=== PATIENT | female | born 2000 | race Caucasian/White ===

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

== ENCOUNTER 2020-02-06 08:32 | Day surgery (SDC) | payer OTHER, SELFPAY ==
[2020-01-26 08:37] VITALS: BMI 25.4
[2020-02-06 08:58] VITALS: BP 124/72; PULSE 83; RESP 16; TEMP 36.9; O2SAT 99; BMI 26.7
[2020-02-06 09:03] LABS: Internal QC Validated? YES +Cl - CLEAR BKGD; Pregnancy, Urine Negative Negative
[2020-02-06] MEDS: Lactated Ringers 1,000 ML 100 ML IV ×2 (09:13→13:34)
--- NOTE | 2020-02-06 10:06 | PCM.HP.BLA ---
History and Physical Date of Admission: 02/06/20 Date of Service: 01/26/20 MR#: [id number] Acct: [id number] Name: MAINOR MARTINI Rep #: [id number] : 2000 Provider: Dr. 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 Required: No Is patient in pain?: No Allergies No Known Allergies Allergy (Verified 01/26/20 08:37) Medications drospirenone 3 mg-ethinyl estradiol 0.02 mg tablet 1 tab PO QDAY #84 tab 11/20/19 [Rx Confirmed 01/26/20] isotretinoin 20 mg capsule PO 01/26/20 [History Confirmed 01/26/20] Is last menstrual period known: No Post menopausal: No Patient : No PFSH Medical History (Updated 01/26/20 @ 08:36 by Esme Wu) Acne (Acute) Breast lump (Acute) Surgical History History of appendectomy (Acute) History of right knee surgery (Acute) History of tonsillectomy and adenoidectomy (Acute) history closed reduction right arm fracture (Acute) Social History (Updated 01/26/20 @ 11:[address] Narcisa Lang MD) Smoking Status: Never smoker alcohol intake: never substance use type: does not use caffeine: Yes what type of physical activity do you participate in: walking seatbelt use: always do you feel safe at home: Yes additional social history: single HPI HPI HPI: MAINOR MARTINI, is a 19 F who presents to the office today for HPI HPI HPI: MAINOR MARTINI, is a 19 F who presents to the office today for discussion of lumpectomies on right breast. Patient previously had biopsies of 2 right breast nodules one was fibroadenoma at 11:00 and the other was fibroadenoma/benign phyllodes. Did previously discuss patient would recommend definitely excision of the benign phyllodes tumor at 8:00 and patient states that the 11:00 1 was also tender and wanted it to be excised as well. Patient states since last office visit she has not really noticed change in size. States that the 7:00 one is insulation power unit tender with palpation. Patient rates the tenderness about a 6/10. ROS General General: Yes fatigue; no weight change, colon cancer, breast cancer or weakness HEENT HEENT: No difficulty swallowing, eye injury, eye surgery, swollen glands or hoarseness Endo Endocrine: No thyroid disease, diabetes mellitus, thyroid cancer, Hair loss, heat intolerance or cold intolerance Cardio Cardiovascular: Yes murmur; no pacemaker, heart disease, atrial fibrillation, high blood pressure, heart attack, heart stent, palpitations, shortness of breat with exertion or chest pain Psych Psychiatric: No depression, anxiety or hearing voices Resp Respiratory: No shortness of breath, No sleep apnea, No cough, No COPD, No asthma, No emphysema, No wheezing Esdras Hematologic: No blood thinners, No blood disorders, No bleeding, No anemia, No blood clots Neuro Neurologic: No weakness Exam Const General: cooperative, comfortable, no acute distress, well developed Chest Breast inspection: normal inspection of the breasts, abnormal inspection of the axilla Other: 3 cm nodule appreciated 11:00 2 cm from the nipple as well as a 1.5 cm nodule at 8:00 2 cm from the nipple mild tenderness palpation of the 11:00 fibroadenoma, mobile, no changes to overlying skin, no nipple discharge or supraclavicular adenopathy. Resp Effort & Inspection: normal respiratory effort Cardio Rate: regular rate Heart Sounds: murmur Assessment & Plan Problems 1. 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 Discussed the procedure along with risks including but not limited to bleeding, infection, need for further surgery, seroma/hematoma. We will plan to make that incision at the areolar border. The patient was agreeable plan and agreed to proceed. Narcisa Lang M.D. Pager: [phone] [facility] [address] [place] [address], [address] [place] [id number] Office: 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 delaying the surgery/procedure. It is not possible to know either the risk of delaying the surgery or procedure or chance of getting an infection with perfect accuracy, but a joint decision was made between the patient and the surgeon/proceduralist ?to proceed at this time with the scheduled surgery/procedure as indicated on the consent form. 01/26/20 1126 <Electronically signed by Narcisa Lang MD> Date Narcisa Lang MD
[2020-02-06] MEDS: Cefazolin 2 GM in 0.9% Normal Saline 100 ML IV (10:45)
--- NOTE | 2020-02-06 11:50 | BRBX_PTH ---
PATIENT: MAINOR MARTINI LOC: [facility] U#:[id number] AGE/SX: 19/F ROOM: RE02/06/[address]: Dr. Narcisa Lang MD : 2000 BED: DIS: 02/06/2020 SPEC #: [id number] RECD: 02/06/20 12:00 STATUS: [place] MICHELINE #: [id number] MISTI: 02/06/20 11:[address]: Narcisa Lang DEPT: SURGICAL PATHOLOGY RECD BY: Ilana Garcia ENTERED: 02/06/20 12:16 SP TYPE: BREAST BX OTHR DR: Dr. Jayme Garcia DO Tissues: A - Right breast, NOS B - Right breast, NOS Procedures: Surgery Specimen Level V HEADER OPERATION: Ultrasound-guided wire localization, lumpectomy x2 PRE-OP DIAGNOSIS: Benign phyllodes tumor right breast, fibroadenoma right breast TISSUE SUBMITTED: A - Right breast fibroadenoma, B - Right breast benign phyllodes tumor MICROSCOPIC DIAGNOSIS A. Right breast fibroadenoma, lumpectomy with needle localization: Fibroadenoma/phyllodes tumor, completely excised. Negative for atypia or malignancy. B. Benign phyllodes tumor right breast, lumpectomy: Fibroadenoma/phyllodes tumor, completely excised. Negative for atypia or malignancy. SJ:consuelo 02/10/20 COMMENT Please make reference to previous specimen ([id number]) right breast, 11 o'clock, core biopsy with diagnosis of fibroadenoma and right breast, 8 o'clock, 2 cm from nipple, core biopsy with diagnosis of fibroadenoma/benign phyllodes tumor. MICROSCOPIC DESCRIPTION Slides are reviewed. GROSS DESCRIPTION A - Received fresh and postfixed in formalin is one container labeled with the patient's name and designated right breast benign phyllodes tumor, short suture - superior, long suture - lateral. The specimen consists of a piece of nodular tissue with wire localization measuring 3 x 2.5 x 2 cm. The specimen is inked as follows: anterior - yellow, posterior - black, superior - blue, inferior - green, medial - red and lateral - orange. Sections reveal santana, solid cut surfaces. The entire specimen is submitted in six cassettes from superior to inferior margin. Cassette 1 contains the most superior portion, cassette 6 contains the most inferior portion. B - Received in fixative is one container labeled with the patient's name and designated benign phyllodes tumor right breast. The specimen consists of a nodular piece of santana soft tissue measuring 2.5 x 2 x 1.5 cm. The specimen is oriented by a suture, short suture - superior, long - lateral. The specimen is inked as follows: anterior - yellow, posterior - black, superior - blue, inferior - green, medial - red and lateral - orange. Sections reveal santana, solid cut surfaces. The entire specimen is submitted in four cassettes. Cassette 1 contains the most medial portion and cassette 4 contains the most lateral portion. / SJ:rg 02/09/20 TC:1 CPT: 45433 x2
--- NOTE | 2020-02-06 11:54 | BI_ITS ---
SURGICAL BREAST SPECIMEN RADIOGRAPH CLINICAL: Document presence of tissue clip marker in biopsy specimen. FINDINGS: Specimen shows presence of tissue clip marker. Electronically Signed: Judd Smith, at 13:35 EST , Service support , BI/Breast Biopsy Specimen
--- NOTE | 2020-02-06 12:49 | BI_ITS ---
SURGICAL BREAST SPECIMEN RADIOGRAPH CLINICAL: Document presence of tissue clip marker in biopsy specimen. FINDINGS: Specimen shows presence of tissue clip marker. Electronically Signed: Judd Smith, at 13:35 EST , Service support , BI/Breast Biopsy Specimen
--- NOTE | 2020-02-06 12:52 | PCM.OPRPT ---
Report of Operation Date of Procedure: 02/06/20 Pre-Operative Diagnosis: Right breast fibroadenoma and benign phyllodes Post-Operative Diagnosis: Same Surgery/Procedure Performed:: Excision of right breast fibroadenoma and benign phyllodes masses x2. Type of Anesthesia:: General Anesthesiologist: Eben Oneill Special Medications: Ancef 2 g IV x1 Specimen's removed: 11:00 right breast mass fibroadenoma, 8:00 right breast mass benign phyllodes Estimated Blood Loss (mL): 10 Fluids Replaced: 1400 Description of Procedure: Patient brought into the operating room after informed consent obtained. Placed supine on the operating table. Right arm was tucked and appropriately padded. General anesthesia was induced. The right breast was prepped and draped in usual sterile fashion. Ultrasound was used to identify the 2 lesions one at 11:00 3 cm from nipple and one at 8:00 2 cm from the nipple. Kopan wires were used to helena the areas. An incision along the areolar border was used with a 15 blade scalpel. This was deepened to locate the wire at the 11:00 lesion. 3-0 silk suture was used to secure the wire and apply traction to the mass. It was circumferentially dissected from the surrounding tissue. The anterior is marked with a short suture in the lateral was marked with a long suture and sent to pathology after radiology confirmed entire wire and clip present. Next moved to the 8:00 lesion due to the firmness of the mass that Kopan's needle was unable to penetrate it. Again this was localized and 3-0 silk suture was used for traction. Electrocautery was used to circumferentially excise this mass. Hemostasis was assured. Wound was irrigated with saline the 8:00 lesion was also marked long stitch lateral short stitch superior. It was sent for x-ray the clip was confirmed. Then it was sent to pathology. Cavity was irrigated with sterile water. Hemostasis was assured. 3-0 Vicryl interrupted sutures were used to close the space x2. The skin was sutured with interrupted subdermal 3-0 Vicryl sutures and a running 4-0 Monocryl with Dermabond. Patient tolerated procedure well was sent to PACU in stable condition. - Complications none
[2020-02-06] MEDS: Bupiv/Epi 0.25% 30 ML Vial (12:53)
--- NOTE | 2020-02-06 13:18 | DCINST_ITS ---
Discharge Diet: Light diet - advance as tolerated Discharge Activity: May not drive while taking narcotic pain medications. May shower in (days): 1 Lifting Restrictions: No lifting greater than 10 pounds x 4 days on the right Call your doctor if your incision/area has: Continuous Slow Oozing, Sudden Increased Bleeding, Increased Pain/ Swelling, Increased Redness, Foul Smelling Discharge, Swelling at the incision site Call your doctor if you observe: Fever of 101 or Higher Allergies/Adverse Reactions: Allergies No Known Allergies Allergy (Verified 02/06/20 08:56) Medications to take at Discharge drospirenone 3 mg-ethinyl estradiol 0.02 mg tablet 1 tab PO QDAY #84 tab 11/20/19 isotretinoin 20 mg capsule 20 mg PO DAILY 01/26/20 Oxycodone HCl/Acetaminophen [Percocet 5/325] 1 - 2 tab PO Q6H PRN PRN 4 Days #15 tab 02/06/20 The following prescriptions were given: Oxycodone HCl/Acetaminophen [Percocet 5/325] 1 - 2 tab PO Q6H PRN PRN 4 Days #15 tab PRN Reason: Pain Transmission Status: Received by [facility] Primary Care Physician: Jayme Garcia DO [Primary Care Provider] - Test Results: Test results from this visit will be discussed in further detail at your follow- up appointment, if applicable. Please Follow Up With: Narcisa Lang MD - After 5:00 on the weekends call [phone] When: Call the office for follow-up appointment in 2 weeks Proposed Discharge Date: 02/06/20
[2020-02-06 13:28] VITALS: BP 124/72; BP 140/79; PULSE 139; RESP 18; TEMP 36.9; O2SAT 96
[2020-02-06 13:30] VITALS: BP 124/72; BP 128/83; PULSE 128; RESP 18; O2SAT 96
[2020-02-06 13:45] VITALS: BP 124/72; BP 139/59; PULSE 124; RESP 18; O2SAT 95
[2020-02-06 13:59] VITALS: BP 124/72; BP 134/70; PULSE 118; RESP 18; TEMP 36.4; O2SAT 95
[2020-02-06 14:35] VITALS: BP 124/72
== END 2020-02-06 14:35 | disposition home or self-care (01) ==
LOC: SDC 08:34 → AC 08:34
PROVIDERS: Anesthesiology; PCP Pediatrics; Referring Provider Surgery; Visit Provider Surgery
PROC: (CPT 19301; principal; 2020-02-06 09:45)
DX: D24.1 Benign neoplasm of right breast (principal); Z20.828 Contact with and (suspected) exposure to other viral communicable diseases
CPT/HCPCS: 00400; 19120; 76098; 81025; 87426; 88305; 88307; C9803; J7120; J2405

== ENCOUNTER → 2020-02-20 15:56 | Outpatient (CLI) | payer OTHER, SELFPAY ==
[2020-02-06 08:58] VITALS: BMI 26.7
[2020-02-20 17:58] LABS: Internal QC Validated? YES +Cl - CLEAR BKGD; Pregnancy, Urine Negative Negative
== END ==
PROVIDERS: PCP Pediatrics; Referring Provider Physician Assistant Medical; Visit Provider Physician Assistant Medical
DX: L70.0 Acne vulgaris (principal); Z79.899 Other long term (current) drug therapy
CPT/HCPCS: 81025

== ENCOUNTER → 2020-04-13 09:02 | Outpatient (CLI) | payer OTHER, SELFPAY ==
[2020-04-13 10:06] LABS: Internal QC Validated? YES +Cl - CLEAR BKGD; Pregnancy, Urine Negative Negative
[2020-04-13 10:46] LABS: AST(SGOT) 14 U/L (15-37); Alanine Aminotransfer ALT/SGPT 20 U/L (13-56); Albumin, Serum 3.5 g/dL (3.2-5.0); Alkaline Phosphatase 71 U/L (45-117); Bilirubin, Direct 0.11 mg/dL (0.00-0.30); Cholesterol 219 mg/dL (200); Globulin 3.8 g/dL (2.2-4.2); High Density Lipoprotein 83 mg/dL; Protein, Total 7.3 g/dL (6.4-8.2); Triglycerides 162 mg/dL; Very Low Density Lipoprotein 32 mg/dL (5-40)
== END ==
LOC: LAB 09:05
PROVIDERS: PCP Pediatrics; Referring Provider Dermatology; Visit Provider Dermatology
DX: L70.0 Acne vulgaris (principal); L20.89 Other atopic dermatitis; Z79.899 Other long term (current) drug therapy
CPT/HCPCS: 36415; 80061; 80076; 81025

== ENCOUNTER → 2020-06-22 15:33 | Outpatient (CLI) | payer OTHER, SELFPAY ==
[2020-06-22 15:10] VITALS: BMI 28.3
[2020-06-22 16:44] LABS: Absolute Neutrophil Count 5.9 X10^3/uL (2.0-7.7); Basophil# 0.04 X10^3/uL; Basophil% 0.5 % (0-1); Eosinophil# 0.11 X10^3/uL; Eosinophils% 1.3 % (0-5); Hematocrit 46.6 % (37-47); Hemoglobin 15.3 g/dL (12.0-15.0); Lymphocyte % 22.6 % (19-41); Mean Corp Hgb Conc 32.8 g/dL (32-36); Mean Corpuscular Hgb 27.4 pg (27.0-32.0); Mean Corpuscular Volume 83.4 fL (81-99); Mean Platelet Vol. 9.9 fl (6.2-12.0); Monocyte# 0.41 X10^3/uL; Monocyte% 4.9 % (0-10); NRBC Flagged by Analyzer 0 % (0-5); Neutrophil # 5.92 X10^3/uL (2.7-7.7); Neutrophil % 70.5 % (47-70); Platelet Count 321 K/mm3 (150-450); RBC Distribution Width CV 12.2 % (11.6-14.6); RBC Distribution Width SD 37.2 fl (35.1-43.9); Red Blood Count 5.59 M/mm3 (4.2-5.4); White Blood Count 8.4 K/mm3 (4.4-11.0)
[2020-06-22 17:30] LABS: Thyroid Stim Hormone (TSH) 0.61 uIU/mL (0.358-3.74)
[2020-06-22 18:24] LABS: Chlamydia Trachomatis by PCR POSITIVE (Negative); Neisserai gonorrhoeae by PCR Negative (Negative); Probe Check PASS; Sample Adequacy Control PASS; Specimen Processing Control PASS
== END ==
PROVIDERS: Nurse Practitioner Women's Health; PCP Pediatrics; Visit Provider Obstetrics & Gynecology
DX: N92.1 Excessive and frequent menstruation with irregular cycle (principal); Z11.3 Encounter for screening for infections with a predominantly sexual mode of transmission; Z13.29 Encounter for screening for other suspected endocrine disorder
CPT/HCPCS: 36415; 84443; 85025; 85245; 87491; 87591

== ENCOUNTER → 2020-06-23 11:52 | Outpatient (CLI) | payer OTHER, SELFPAY ==
[2020-06-22 15:10] VITALS: BMI 28.3
[2020-06-23 13:13] LABS: HIV - WCH Non-Reactive (Nonreactive); Hepatitis B Surface Antigen Non-Reactive (Nonreactive); Hepatitis C Antibody Non-Reactive (Nonreactive)
[2020-06-24 14:19] LABS: HSV 1 IgG < 0.91 index (0.00-0.90); HSV 2 IgG < 0.91 index (0.00-0.90)
[2020-06-25 09:08] LABS: Syphilis Antibodies Non-reactive
== END ==
LOC: PAVLAB 11:54
PROVIDERS: PCP Pediatrics; Referring Provider Nurse Practitioner Women's Health; Visit Provider Nurse Practitioner Women's Health
DX: Z11.3 Encounter for screening for infections with a predominantly sexual mode of transmission (principal)
CPT/HCPCS: 36415; 86695; 86696; 86703; 86780; 86803; 87340

== ENCOUNTER → 2020-10-15 16:23 | Outpatient (CLI) | payer OTHER, SELFPAY ==
[2020-10-15 15:27] VITALS: BMI 28.3
[2020-10-15 18:12] LABS: Estradiol 42.9 pg/mL; Prolactin 9.2 ng/mL; Thyroid Stim Hormone (TSH) 0.78 uIU/mL (0.358-3.74)
[2020-10-19 06:07] LABS: Chlamydia By Nucleic Acid AMP Negative (Negative)
[2020-10-19 08:21] LABS: 17-Hydroxyprogesterone 86 ng/dL (.)
[2020-10-19 08:21] LABS: Gonococcus By Nucleic Acid AMP Negative (Negative)
[2020-10-22 11:11] LABS: Testosterone Free 2.1 pg/mL (0.0-4.2)
== END ==
PROVIDERS: PCP Pediatrics; Referring Provider Obstetrics & Gynecology; Visit Provider Obstetrics & Gynecology
DX: N89.8 Other specified noninflammatory disorders of vagina (principal); N92.1 Excessive and frequent menstruation with irregular cycle; Z11.3 Encounter for screening for infections with a predominantly sexual mode of transmission
CPT/HCPCS: 36415; 82627; 82670; 83001; 83498; 84146; 84402; 84443; 87070; 87205; 87491; 87591; 82626

== ENCOUNTER → 2020-11-05 13:52 | Outpatient (CLI) | payer OTHER, SELFPAY ==
[2020-10-15 15:27] VITALS: BMI 28.3
--- NOTE | 2020-11-05 13:55 | US_ITS ---
STUDY: ULTRASOUND OF THE FEMALE PELVIS - COMPLETE REASON FOR EXAM: Female, 20 years old. Menorrhagia w/irregular cycles LMP: 07/01/2020 TECHNIQUE: endovaginal TECHNICAL QUALITY: Adequate. COMPARISON: None. FINDINGS: The uterus is anteverted and is in a midline position. The uterus measures 8.3 x 4.9 x 3.0 cm. Nabothian cysts at the uterine cervix. The endometrium measures 11.4 mm in thickness, and is hyperechoic. There is no demonstrated endometrial mass. There is no demonstrated myometrial mass. The patient does not have an I.U.D. The right ovary is visualized. The right ovary measures 3.2 x 3.2 x 2.9 cm. There is no right ovarian cyst or ovarian mass. There is no visualized right adnexal mass or complex lesion. There is normal arterial and normal venous vascularity. The left ovary is visualized. The left ovary measures 3.0 x 3.5 x 2.5 cm. There is no left ovarian cyst or ovarian mass. There is no visualized left adnexal mass or complex lesion. There is normal arterial and normal venous vascularity. There is no fluid in the cul-de-sac. US/Transvaginal Non- IMPRESSION: Nabothian cysts. Slightly thickened endometrium. Electronically Signed: Sukhi Gruber DO at 16:59 EDT Tel [phone], Service support ,
--- NOTE | 2020-11-05 13:55 | US_ITS ---
STUDY: ULTRASOUND OF THE FEMALE PELVIS - COMPLETE REASON FOR EXAM: Female, 20 years old. Menorrhagia w/irregular cycles LMP: 07/01/2020 TECHNIQUE: endovaginal TECHNICAL QUALITY: Adequate. COMPARISON: None. FINDINGS: The uterus is anteverted and is in a midline position. The uterus measures 8.3 x 4.9 x 3.0 cm. Nabothian cysts at the uterine cervix. The endometrium measures 11.4 mm in thickness, and is hyperechoic. There is no demonstrated endometrial mass. There is no demonstrated myometrial mass. The patient does not have an I.U.D. The right ovary is visualized. The right ovary measures 3.2 x 3.2 x 2.9 cm. There is no right ovarian cyst or ovarian mass. There is no visualized right adnexal mass or complex lesion. There is normal arterial and normal venous vascularity. The left ovary is visualized. The left ovary measures 3.0 x 3.5 x 2.5 cm. There is no left ovarian cyst or ovarian mass. There is no visualized left adnexal mass or complex lesion. There is normal arterial and normal venous vascularity. There is no fluid in the cul-de-sac. US/Pelvic (Non ) IMPRESSION: Nabothian cysts. Slightly thickened endometrium. Electronically Signed: Sukhi Gruber DO at 16:59 EDT Tel [phone], Service support ,
== END ==
PROVIDERS: PCP Pediatrics; Referring Provider Obstetrics & Gynecology; Visit Provider Obstetrics & Gynecology
DX: N92.1 Excessive and frequent menstruation with irregular cycle (principal)
CPT/HCPCS: 76830; 76856

== ENCOUNTER → 2020-11-26 16:52 | Outpatient (CLI) | payer OTHER, SELFPAY ==
[2020-11-26 18:58] LABS: Chlamydia Trachomatis by PCR Negative (Negative); Neisserai gonorrhoeae by PCR Negative (Negative); Probe Check PASS; Sample Adequacy Control PASS; Specimen Processing Control PASS
== END ==
PROVIDERS: PCP Pediatrics; Visit Provider Obstetrics & Gynecology
DX: Z11.3 Encounter for screening for infections with a predominantly sexual mode of transmission (principal)
CPT/HCPCS: 87491; 87591

== ENCOUNTER → 2021-01-05 10:09 | Outpatient (CLI) | payer OTHER, SELFPAY ==
[2021-01-05 11:36] LABS: HIV - WCH Non-Reactive (Nonreactive); Syphilis Antibodies Non-reactive
[2021-01-06 09:19] LABS: HSV 1 IgG < 0.91 index (0.00-0.90); HSV 2 IgG < 0.91 index (0.00-0.90)
[2021-01-06 22:07] LABS: Chlamydia By Nucleic Acid AMP Positive (Negative)
[2021-01-06 22:33] LABS: Gonococcus By Nucleic Acid AMP Negative (Negative)
== END ==
PROVIDERS: PCP Pediatrics; Referring Provider Nurse Practitioner Women's Health; Visit Provider Nurse Practitioner Women's Health
DX: Z11.3 Encounter for screening for infections with a predominantly sexual mode of transmission (principal); Z20.2 Contact with and (suspected) exposure to infections with a predominantly sexual mode of transmission
CPT/HCPCS: 36415; 86695; 86696; 86703; 86780; 87491; 87591

== ENCOUNTER 2021-04-12 09:18 | Outpatient (CLI) | payer OTHER, SELFPAY ==
[2021-04-12 09:37] LABS: Absolute Lymphocyte Count 1.88 X10^3/uL (0.83-4.51); Absolute Neutrophil Count 5.5 X10^3/uL (2.0-7.7); Basophil# 0.04 X10^3/uL; Basophil% 0.5 % (0-1); Eosinophil# 0.16 X10^3/uL; Hemoglobin 15.1 g/dL (12.0-15.0); Lymphocyte # 1.88 X10^3/ul (0.83-4.51); Lymphocyte % 23.2 % (19-41); Mean Corp Hgb Conc 32.8 g/dL (32-36); Mean Corpuscular Hgb 27.2 pg (27.0-32.0); Mean Corpuscular Volume 82.9 fL (81-99); Mean Platelet Vol. 9.3 fl (6.2-12.0); Monocyte# 0.46 X10^3/uL; Monocyte% 5.7 % (0-10); NRBC Flagged by Analyzer 0 % (0-5); Neutrophil # 5.53 X10^3/uL (2.7-7.7); Neutrophil % 68.4 % (47-70); Platelet Count 317 K/mm3 (150-450); RBC Distribution Width CV 12.1 % (11.6-14.6); RBC Distribution Width SD 36.8 fl (35.1-43.9); Red Blood Count 5.55 M/mm3 (4.2-5.4); White Blood Count 8.1 K/mm3 (4.4-11.0)
[2021-04-13 22:06] LABS: Chlamydia By Nucleic Acid AMP Negative (Negative)
[2021-04-14 08:23] LABS: Gonococcus By Nucleic Acid AMP Negative (Negative)
== END 2021-04-12 23:59 | disposition short-term general hospital (02) ==
LOC: PAVLAB 09:19
PROVIDERS: PCP Pediatrics; Referring Provider Obstetrics & Gynecology; Visit Provider Obstetrics & Gynecology
DX: R10.2 Pelvic and perineal pain (principal)
CPT/HCPCS: 36415; 85025; 87086; 87491; 87591

== ENCOUNTER 2021-04-29 08:38 | Outpatient (CLI) | payer OTHER, SELFPAY ==
--- NOTE | 2021-04-29 08:45 | CT_ITS ---
STUDY: CT ABDOMEN AND PELVIS WITH CONTRAST REASON FOR EXAM: Female, 20 years old. 2 week history of lower pelvic pain. RADIATION DOSAGE (If Supplied By Facility): CTDIvol = ( 17.24 ) mGy, DLP = ( 1174.61 ) mGycm TECHNIQUE: Transaxial images were obtained from the dome of the diaphragm to the symphysis pubis without oral contrast. IV 100mL Isovue-370 was administered. Sagittal and coronal images were reconstructed. Individualized dose optimization techniques were used for this CT. COMPARISON: Comparison is made with prior study dated 11/06/2012. FINDINGS: The visualized lung bases are unremarkable. The visualized portions of the heart are within normal limits. Normal liver. Normal gallbladder and extrahepatic biliary system. Normal spleen. Normal pancreas. Normal bilateral adrenal glands. Normal right kidney. Normal left kidney. Normal visualized stomach. Normal small intestine. Normal colon. There are surgical clips in the region of the appendix consistent with a prior appendectomy. Normal abdominal aorta. Normal inferior vena cava. Normal retroperitoneum. Normal urinary bladder. Small follicles are seen in both ovaries. Normal abdominal wall. Normal osseous structures. CT/Abdomen/Pelvis W IV Cont ONLY IMPRESSION: Status post appendectomy. Small follicles are seen in both ovaries. Electronically Signed: Judd Smith MD at 9:33 EST ,
[2021-04-29 09:40] LABS: Absolute Lymphocyte Count 1.79 X10^3/uL (0.83-4.51); Basophil# 0.03 X10^3/uL; Basophil% 0.3 % (0-1); Eosinophil# 0.09 X10^3/uL; Eosinophils% 0.9 % (0-5); Hematocrit 42.8 % (37-47); Lymphocyte # 1.79 X10^3/ul (0.83-4.51); Lymphocyte % 17.3 % (19-41); Mean Corp Hgb Conc 32.7 g/dL (32-36); Mean Corpuscular Hgb 26.4 pg (27.0-32.0); Mean Corpuscular Volume 80.6 fL (81-99); Mean Platelet Vol. 9.3 fl (6.2-12.0); Monocyte# 0.46 X10^3/uL; Monocyte% 4.4 % (0-10); NRBC Flagged by Analyzer 0 % (0-5); Neutrophil # 7.97 X10^3/uL (2.7-7.7); Neutrophil % 76.8 % (47-70); Platelet Count 273 K/mm3 (150-450); RBC Distribution Width CV 12.1 % (11.6-14.6); RBC Distribution Width SD 35.1 fl (35.1-43.9); Red Blood Count 5.31 M/mm3 (4.2-5.4); White Blood Count 10.4 K/mm3 (4.4-11.0)
[2021-04-29 09:55] LABS: Anion Gap 5 (5-15); BUN 8 mg/dL (7-18); BUN/Creat Ratio 11.6 RATIO (10-20); Calcium,Total 8.8 mg/dL (8.5-10.1); Chloride 106 mmol/L (98-107); Creatinine, Serum 0.69 mg/dL (0.55-1.02); EST Glomerular Filtration Rate 115 mL/min (>60); Est Glom Filt Rate - Afr Amer 139 mL/min (>60); Glucose 86 mg/dL (74-106); Potassium 4.3 mmol/L (3.5-5.1); Sodium Level 135 mmol/L (136-145)
== END 2021-04-29 23:59 | disposition short-term general hospital (02) ==
PROVIDERS: PCP Pediatrics; Referring Provider Obstetrics & Gynecology; Visit Provider Obstetrics & Gynecology
DX: R10.2 Pelvic and perineal pain (principal)
CPT/HCPCS: 36415; 74177; 80048; 85025; 87086; Q9967

== ENCOUNTER 2021-07-01 09:55 | Outpatient (CLI) | payer OTHER, SELFPAY ==
--- NOTE | 2021-07-01 09:58 | US_ITS ---
STUDY: ULTRASOUND BREAST - LEFT REASON FOR EXAM: Female, 20 years old. Palpable lump left breast. TECHNIQUE: Axial and longitudinal images of the LEFT breast were performed with a high resolution ultrasound transducer. # OF IMAGES: 58 COMPARISON: None. FINDINGS: LEFT Breast: The lateral half of the left breast was examined by ultrasound. There is dense fibroglandular tissue. No sonographic abnormality is seen. US/Breast Limited Unilateral IMPRESSION: No sonographic abnormality is seen. ASSESSMENT CATEGORY: BIRADS Category 1: Negative. A letter regarding these results will be sent to the patient by the facility within 30 days. Electronically Signed: Judd Smith MD at 10:37 EDT ,
== END 2021-07-01 23:59 | disposition home or self-care (01) ==
LOC: OPBI 09:57
PROVIDERS: PCP Pediatrics; Visit Provider Obstetrics & Gynecology
DX: N63.20 Unspecified lump in the left breast, unspecified quadrant (principal)
CPT/HCPCS: 76642

== ENCOUNTER → 2021-07-25 | Outpatient (CLI) | payer OTHER, SELFPAY ==
[2021-07-25 10:51] LABS: HIV - WCH Non-Reactive (Nonreactive); Syphilis Antibodies Non-reactive
[2021-07-26 19:51] LABS: HSV 1 IgG < 0.91 index (0.00-0.90); HSV 2 IgG < 0.91 index (0.00-0.90)
[2021-07-27 06:08] LABS: Chlamydia By Nucleic Acid AMP Negative (Negative)
[2021-07-27 10:42] LABS: Gonococcus By Nucleic Acid AMP Negative (Negative)
[2021-07-28 17:23] LABS: HPV Reflexed? NOT INDICATED
== END | disposition home or self-care (01) ==
LOC: PAVLAB 09:27
PROVIDERS: PCP Pediatrics; Referring Provider Nurse Practitioner Women's Health; Visit Provider Nurse Practitioner Women's Health
DX: Z20.2 Contact with and (suspected) exposure to infections with a predominantly sexual mode of transmission (principal); N89.8 Other specified noninflammatory disorders of vagina; Z12.4 Encounter for screening for malignant neoplasm of cervix
CPT/HCPCS: 36415; 86695; 86696; 86703; 86780; 87070; 87077; 87205; 87491; 87591; 88175; G0145

== ENCOUNTER → 2021-12-14 | Outpatient (CLI) | payer SELFPAY ==
[2021-12-14 15:09] LABS: Absolute Neutrophil Count 5.4 X10^3/uL (2.0-7.7); Basophil# 0.05 X10^3/uL; Basophil% 0.6 % (0-1); Eosinophils% 1.3 % (0-5); Hemoglobin 13.4 g/dL (12.0-15.0); Lymphocyte % 22.9 % (19-41); Mean Corp Hgb Conc 32.7 g/dL (32-36); Mean Corpuscular Hgb 26.6 pg (27.0-32.0); Mean Corpuscular Volume 81.5 fL (81-99); Mean Platelet Vol. 9.3 fl (6.2-12.0); Monocyte# 0.52 X10^3/uL; Monocyte% 6.6 % (0-10); NRBC Flagged by Analyzer 0 % (0-5); Neutrophil # 5.36 X10^3/uL (2.7-7.7); Neutrophil % 68.2 % (47-70); Platelet Count 350 K/mm3 (150-450); RBC Distribution Width CV 13.2 % (11.6-14.6); RBC Distribution Width SD 39.1 fl (35.1-43.9); Red Blood Count 5.03 M/mm3 (4.2-5.4); White Blood Count 7.9 K/mm3 (4.4-11.0)
[2021-12-14 15:29] LABS: Prolactin 12.4 ng/mL; T4 Free Direct 1.15 ng/dL (0.76-1.46); Thyroid Stim Hormone (TSH) 0.79 uIU/mL (0.358-3.74)
[2021-12-15 08:47] LABS: HIV - WCH Non-Reactive (Nonreactive); Hepatitis C Antibody Non-Reactive (Nonreactive); Syphilis Antibodies Non-reactive
[2021-12-16 11:11] LABS: HSV 1 IgG < 0.91 index (0.00-0.90); HSV 2 IgG < 0.91 index (0.00-0.90)
[2021-12-16 22:06] LABS: Chlamydia By Nucleic Acid AMP Negative (Negative)
[2021-12-17 07:17] LABS: Gonococcus By Nucleic Acid AMP Negative (Negative)
== END | disposition home or self-care (01) ==
PROVIDERS: PCP Pediatrics; Referring Provider Nurse Practitioner Women's Health; Visit Provider Nurse Practitioner Women's Health
DX: Z20.2 Contact with and (suspected) exposure to infections with a predominantly sexual mode of transmission (principal)
CPT/HCPCS: 36415; 84146; 84439; 84443; 85025; 86695; 86696; 86703; 86780; 86803; 87491; 87591

== ENCOUNTER → 2022-01-06 | Outpatient (CLI) | payer SELFPAY ==
--- NOTE | 2022-01-06 13:11 | US_ITS ---
STUDY: ULTRASOUND OF THE FEMALE PELVIS - COMPLETE REASON FOR EXAM: Female, 21 years old. aub LMP: 11/07/2021. TECHNIQUE: Transvaginal TECHNICAL QUALITY: Adequate. COMPARISON: None. FINDINGS: The uterus is anteverted and is in a midline position. The uterus measures 7.9 cm x 5.1 cm x 3.5 cm. Normal uterine cervix. The endometrium measures 3 mm in thickness, and is hyperechoic. There is no demonstrated endometrial mass. There is no demonstrated myometrial mass. I.U.D. - The patient does not have an I.U.D. The right ovary is visualized. The right ovary measures 3.4 cm x 3.2 cm x 2.1 cm. There is no right ovarian cyst or ovarian mass. There is no visualized right adnexal mass or complex lesion. There is normal arterial and normal venous vascularity. The left ovary is visualized. The left ovary measures 4.1 cm x 3 cm x 2.2 cm. There is no left ovarian cyst or ovarian mass. There is no visualized left adnexal mass or complex lesion. There is normal arterial and normal venous vascularity. There is no fluid in the cul-de-sac. The pre void volume of the bladder was 543 ml. US/Transvaginal Non- IMPRESSION: Normal female pelvis. Electronically Signed: Judd Smith MD at 15:32 EDT ,
--- NOTE | 2022-01-06 13:11 | US_ITS ---
STUDY: ULTRASOUND OF THE FEMALE PELVIS - COMPLETE REASON FOR EXAM: Female, 21 years old. aub LMP: 11/07/2021. TECHNIQUE: Transvaginal TECHNICAL QUALITY: Adequate. COMPARISON: None. FINDINGS: The uterus is anteverted and is in a midline position. The uterus measures 7.9 cm x 5.1 cm x 3.5 cm. Normal uterine cervix. The endometrium measures 3 mm in thickness, and is hyperechoic. There is no demonstrated endometrial mass. There is no demonstrated myometrial mass. I.U.D. - The patient does not have an I.U.D. The right ovary is visualized. The right ovary measures 3.4 cm x 3.2 cm x 2.1 cm. There is no right ovarian cyst or ovarian mass. There is no visualized right adnexal mass or complex lesion. There is normal arterial and normal venous vascularity. The left ovary is visualized. The left ovary measures 4.1 cm x 3 cm x 2.2 cm. There is no left ovarian cyst or ovarian mass. There is no visualized left adnexal mass or complex lesion. There is normal arterial and normal venous vascularity. There is no fluid in the cul-de-sac. The pre void volume of the bladder was 543 ml. US/Pelvic (Non ) IMPRESSION: Normal female pelvis. Electronically Signed: Judd Smith MD at 15:32 EDT ,
== END | disposition home or self-care (01) ==
PROVIDERS: PCP Pediatrics; Referring Provider Obstetrics & Gynecology; Visit Provider Obstetrics & Gynecology
DX: N92.1 Excessive and frequent menstruation with irregular cycle (principal)
CPT/HCPCS: 76830; 76856

== ENCOUNTER 2022-01-10 10:10 | Day surgery (SDC) | payer OTHER, SELFPAY ==
[2022-01-10] VITALS (10 sets, daily range): BP systolic 117–137; BP diastolic 61–86; PULSE 84–109; RESP 16–17; TEMP 36.5–37.5; O2SAT 97–100; BMI 26.7
[2022-01-10] MEDS: Lactated Ringers 1,000 ML 125 ML IV (10:45)
[2022-01-10 10:46] LABS: Internal QC Validated? YES +Cl - CLEAR BKGD; Pregnancy, Urine Negative Negative
[2022-01-10 11:23] LABS: Absolute Lymphocyte Count 1.63 X10^3/uL (0.83-4.51); Absolute Neutrophil Count 7.2 X10^3/uL (2.0-7.7); Basophil# 0.04 X10^3/uL; Basophil% 0.4 % (0-1); Eosinophil# 0.04 X10^3/uL; Eosinophils% 0.4 % (0-5); Hematocrit 38.9 % (37-47); Hemoglobin 12.2 g/dL (12.0-15.0); Lymphocyte # 1.63 X10^3/ul (0.83-4.51); Lymphocyte % 17.3 % (19-41); Mean Corp Hgb Conc 31.4 g/dL (32-36); Mean Corpuscular Hgb 25.1 pg (27.0-32.0); Mean Platelet Vol. 9.6 fl (6.2-12.0); Monocyte# 0.51 X10^3/uL; Monocyte% 5.4 % (0-10); NRBC Flagged by Analyzer 0 % (0-5); Neutrophil # 7.19 X10^3/uL (2.7-7.7); Neutrophil % 76.2 % (47-70); Platelet Count 353 K/mm3 (150-450); RBC Distribution Width CV 12.3 % (11.6-14.6); RBC Distribution Width SD 35.8 fl (35.1-43.9); Red Blood Count 4.86 M/mm3 (4.2-5.4); White Blood Count 9.4 K/mm3 (4.4-11.0)
--- NOTE | 2022-01-10 12:05 | EMB_PTH ---
PATIENT: MAINOR MARTINI [place] [facility] [id number] AGE/SX: 21/F ROOM: RE01/10/[address]: Dr. Radha Giraldo MD : [id number] BED: DIS: 01/10/2022 SPEC #: [id number] RECD: 01/10/22 14:53 STATUS: [place] REИван #: [id number] MISTI: 01/10/22 12:[address]: Radha Giraldo DEPT: SURGICAL PATHOLOGY RECD BY: Ilana Garcia ENTERED: 01/11/22 09:20 SP TYPE: ENDOM BX/C JAMES DR: Dr. Jayme Garcia DO Tissues: Endometrium, NOS Procedures: Surgery Specimen Level IV HEADER OPERATION: Hysteroscopy, Dilation and curettage, IUD insertion PRE-OP DIAGNOSIS: Menorrhagia with irregular cycle, dyspareunia TISSUE SUBMITTED: Endometrial curettings MICROSCOPIC DIAGNOSIS Endometrial curettings: Mildly disordered proliferative endometrium with glandular and stromal breakdown. Chronic endometritis. Fragments of benign endocervical mucosa. YULIA:consuelo 01/12/2022 MICROSCOPIC DESCRIPTION Slides are reviewed. GROSS DESCRIPTION Received in fixative is one container labeled with the patient's name and designated endometrial curettings. The specimen consists of multiple fragments of hemorrhagic soft tissue mixed with mucoid tissue that in aggregate measure 5 x 3 x 0.2 cm. The specimen is totally submitted in two cassettes. / Ora 01/11/2022 TC:5 CPT: 42360
[2022-01-10] MEDS: Levonorgestrel IUD (Liletta) 1 EACH INTRA-UTER (13:49)
--- NOTE | 2022-01-10 14:26 | PCM.HP.BLA ---
History and Physical Intake Vital Signs ? 04/29/2207:28 12/14/2213:19 12/30/2210:06 12/30/2210:07 Height 5 ft 5 in 5 ft 5 in 5 ft 5 in 5 ft 5 in Weight: ? ? 169 lb ? BMI ? ? 28.1 ? BP ? ? 133/86 H ? 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 Radha Giraldo MD) Acne Alcohol use Non-smoker Wears glasses Surgical History? history closed reduction right arm fracture History of appendectomy History of right knee surgery History of tonsillectomy and adenoidectomy S/P bilateral breast biopsy Social History? Smoking Status:? Never smoker alcohol intake:? never substance use type:? does not use caffeine:? Yes what type of physical activity do you participate in:? walking seatbelt use:? always do you feel safe at home:? Yes additional social history:? single HPI Encounter for routine gynecological examination Details: MAINOR MARTINI is a 21 year old who presents for fu of irregular bleeding.? Has been tried on multiple therapies including NuvaRing, Depo-Provera, and Xulane patch.? She has intermittent bleeding will stop for a few days and then start spotting again.? She is taking short course of Aygestin to control acute bleeding but then proceeds to start bleeding again afterwards.? Previous ultrasound and lab evaluation within normal limits.? she also has significant pelvic pain with bleeding and still has dyspareunia.? History ? ? ? 0 ? Elective abortions ? Hx Para ? Spontaneous abortions ? Hx # Term Pregnancies ? Ectopic pregnancies ? Hx # Pregnancies ? Multiple births ? # of living children ? ROS Const Constitutional: Reports fatigue; Denies fever(s), headache(s), increased appetite, poor appetite, weight gain or weight loss GI GI: Reports as per HPI; Denies abdominal pain, constipation, nausea or vomiting : Reports as per HPI and pelvic pain; Denies difficulty voiding, dysuria, hematuria, urinary frequency, urinary incontinence, urinary hesitancy, urinary urgency, vaginal discharge, vaginal dryness, vaginal odor, vaginal pruritus or other Exam Const General: cooperative, healthy appearing, comfortable, no acute distress and well developed Orientation: alert HENMT Head: normal to inspection and normocephalic Ears: hearing grossly normal bilaterally and external ears normal Nose: external nose normal and nares normal Face and sinus: normal facial exam Neck Neck: normal visual inspection, no lymphadenopathy and trachea midline Thyroid: thyroid normal Resp Effort & Inspection: normal respiratory effort Musc Other: gross motor intact no deficits, full bilateral strength Skin General: no rashes or lesions noted Neuro Motor: muscle tone normal throughout Coding Level of Care Code Off vis,est,level 4 Diagnoses Menorrhagia with irregular cycle? N92.1 Dyspareunia? Anxiety and depression? F41.9; F32.A Assessment and Plan Assessment and Plan (1) Menorrhagia with irregular cycle: ?Status:?Acute ?Comment: neg pcos labs.? failed nuvaring, nl US. Depo+acne.? Xulane patch failed.? plan d and c hysteroscopy laparoscopy and iud insertion.? chromotubation. plan estrace for acute bleeding now has failed aygestin with bleeding acutely needs US. (2) Dyspareunia: ?Status:?Acute ?Comment: discussed dilation and PFPT.? also deep possible endometriosis, discussed diagnostic laparoscopy and chromotubation at time of d and c for full evaluation.? US ordered. (3) Anxiety and depression: ?Status:?Acute ?Comment: counseling, celexa in past. ? ? ? Orders: Orders Pelvic (Non ) 01/06/22 N92.1 - Excessive and frequent menstruation with irregular cycle ? Transvaginal Non- 01/06/22 N92.1 - Excessive and frequent menstruation with irregular cycle ? Plan After discussing the patient's diagnosis and treatment plan options, patient wishes to proceed with surgical management.? I have discussed with the patient the risks, benefits, and alternatives of the procedure which include but are not limited to risks of anesthesia, bleeding, infection, possible damage to bowel, bladder, or surrounding vasculature which could lead to additional surgery to evaluate any complications.? Patient agrees to procedure and wishes to proceed.? ACOG/uptodate references given for additional information regarding procedure.? UPDATE- I have seen the patient and performed any clinically relevant updates to the history and physical exam. Radha Giraldo MD
--- NOTE | 2022-01-10 14:27 | OP.PCM_ITS ---
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 A weighted speculum was placed in the vagina and the anterior lip of the cervix was grasped with a single-tooth tenaculum. A paracervical block was placed with 1% lidocaine. Cervix was progressively dilated to allow passage of a 5 mm hysteroscope. The lining was fully visualized and noted to have thin atrophic lining. Uterine sounded to 9 cm. Curettage was performed and minimal tissue removed and the uterine lining was very soft but no gross abnormalities or defects palpated, sent to pathology. All instruments were removed from the vagina and excellent hemostasis was noted. Uterine manipulator placed inside the vagina and then attention was paid to the abdominal portion of the procedure. The umbilicus was grasped with towel clamps and injected with quarter percent Marcaine and 5 mm in trauma umbilical incision was made and Veress needle entered into the abdomen confirmed to be intra-abdominal with an opening pressure of -1 mmHg or pressure and the abdomen was insufflated with CO2 to gas. 5 mm port was placed under direct visualization. Right and left lower quadrant 5 mm ports were also placed without complication under direct visualization. Uterus ovaries and tubes were noted to be within normal limits and no other gross abnormalities were seen in the abdominal cavity other than the endometriosis implants noted on surgical findings. Using the monopolar scissors into the endometriosis implants were destroyed with monopolar energy for full desiccation. Kayden was applied over the areas. Chromotubation perfo rmed and bilateral tubal patency confirmed. After all port sites were removed without complication and the skin incisions were closed with 3-0 Monocryl series and windows were applied. Uterine manipulator removed. Uterus sounded to 9 cm and Liletta device deployed without complication and strings trimmed to 3 cm. Patient was awoken and taken to recovery in stable condition. Grafts/Implants Used: none Complications none Admit VTE Documentation VTE Present on Admission: No VTE Mechan Device Prophylaxis: SCD's Multi Select Codes Urinary/Genital Urinary/Genital CPT Codes: 44487 Insert IUD, 26457 Chromotubation, 38366 Hysteroscopy,EMC, Polypectomy and 36138 Laproscopic ablation endometriosis
--- NOTE | 2022-01-10 14:27 | DCINST_ITS ---
Discharge Instructions Diet Discharge Diet: No restrictions Activity Discharge Activity: Return to Normal Activity, May Drive (when pain free) and May Shower May resume sexual activity in: 1 week Weight Bearing Status: Full weight bearing Lifting Restrictions: 30 lbs for 2 weeks Dressing / Incision Call your doctor if your incision/area has: Continuous Slow Oozing, Sudden Increased Bleeding, Increased Pain/ Swelling, Increased Redness and Foul Smelling Discharge Call your doctor if you observe: Fever of 101 or Higher, Using more than 1 pad per hour, Shortness of breath, Chest pain and Uncontrolled pain Suture Line Care: Avoid Pulling/Pushing and Avoid Pinching/Bending Remove Dressing in: 1 week (if present) Cleanse incision/area with: Soap & Water and Keep Dressing Clean & Dry Follow Up Care Please Follow Up With: Radha Giraldo MD When: Call to make an appointment with your doctor for a postop visit in 2 weeks Test Results: Test results from this visit will be discussed in further detail at your follow- up appointment, if applicable. Discharge Plan Admission Attending Provider: Radha Giraldo Primary Care Provider: Jayme Garcia Discharge Orders/Prescriptions Prescriptions: New oxycodone-acetaminophen [Endocet] 5-325 mg tablet 1 tab PO Q4H PRN (Reason: pain) 7 Days Qty: 20 0RF ibuprofen [ibuprofen] 600 mg tablet 600 mg PO Q6H PRN PRN (Reason: fever or pain) Qty: 30 0RF No Action estradiol [Estrace] 1 mg tablet 1 mg PO QDAY 14 Days Qty: 14 4RF Referrals / Follow Up: Jayme Garcia DO [Primary Care Provider] - Disposition Disposition (needs filled in before D/C Order can be placed): Home, Self Care
[2022-01-10] MEDS: HYDROcodone Bitartrate/Apap 5/325 Tablet PO (16:20)
== END 2022-01-10 17:26 | disposition home or self-care (01) ==
LOC: SDC 10:11 → AC 10:14
PROVIDERS: PCP Pediatrics; Visit Provider Obstetrics & Gynecology
PROC: 0UDB8ZZ Extraction of Endometrium, Via Natural or Artificial Opening Endoscopic (ICD-10-PCS; CPT 58558; principal; 2022-01-10 11:50)
DX: N71.1 Chronic inflammatory disease of uterus (principal); N92.1 Excessive and frequent menstruation with irregular cycle; N80.00 Endometriosis of the uterus, unspecified; Z30.430 Encounter for insertion of intrauterine contraceptive device
CPT/HCPCS: 58558; 58300; 58350; 58662; 00952; 81025; 85025; 86850; 86900; 86901; 88305; J7120; J2405; Q9968

== ENCOUNTER → 2022-03-17 | Outpatient (CLI) | payer OTHER, SELFPAY ==
[2022-03-17 16:20] LABS: Basophil# 0.04 X10^3/uL; Basophil% 0.5 % (0-1); Eosinophil# 0.11 X10^3/uL; Eosinophils% 1.5 % (0-5); Hematocrit 43.4 % (37-47); Hemoglobin 13.7 g/dL (12.0-15.0); Mean Corp Hgb Conc 31.6 g/dL (32-36); Mean Corpuscular Hgb 24.7 pg (27.0-32.0); Mean Corpuscular Volume 78.3 fL (81-99); Mean Platelet Vol. 9.4 fl (6.2-12.0); Monocyte# 0.47 X10^3/uL; Monocyte% 6.3 % (0-10); NRBC Flagged by Analyzer 0 % (0-5); Neutrophil # 5.04 X10^3/uL (2.7-7.7); Neutrophil % 67.3 % (47-70); Platelet Count 355 K/mm3 (150-450); RBC Distribution Width CV 14.4 % (11.6-14.6); RBC Distribution Width SD 40.7 fl (35.1-43.9); Red Blood Count 5.54 M/mm3 (4.2-5.4); White Blood Count 7.5 K/mm3 (4.4-11.0)
[2022-03-17 17:05] LABS: Ferritin 6 ng/mL (8-252); Iron 52 ug/dL (50-170); Iron Binding Capacity,Total 506 ug/dL (250-450)
== END | disposition home or self-care (01) ==
LOC: LAB 15:07
PROVIDERS: Visit Provider Obstetrics & Gynecology
DX: N93.9 Abnormal uterine and vaginal bleeding, unspecified (principal)
CPT/HCPCS: 36415; 82728; 83540; 83550; 85025

== ENCOUNTER → 2022-04-19 | Outpatient (CLI) | payer OTHER, SELFPAY ==
[2022-04-22 12:08] LABS: Chlamydia By Nucleic Acid AMP Positive (Negative)
[2022-04-22 12:30] LABS: Gonococcus By Nucleic Acid AMP Negative (Negative)
== END | disposition home or self-care (01) ==
LOC: LABSPEC 17:00
PROVIDERS: Referring Provider Nurse Practitioner Women's Health; Visit Provider Nurse Practitioner Women's Health
DX: N89.8 Other specified noninflammatory disorders of vagina (principal); N39.0 Urinary tract infection, site not specified
CPT/HCPCS: 87070; 87077; 87086; 87088; 87186; 87205; 87491; 87591

== ENCOUNTER → 2022-05-08 | Outpatient (CLI) | payer OTHER, SELFPAY ==
[2022-05-08 10:06] LABS: Absolute Lymphocyte Count 1.62 X10^3/uL (0.83-4.51); Absolute Neutrophil Count 3.3 X10^3/uL (2.0-7.7); Basophil# 0.07 X10^3/uL; Basophil% 1.3 % (0-1); Eosinophil# 0.06 X10^3/uL; Eosinophils% 1.1 % (0-5); Hematocrit 44.7 % (37-47); Hemoglobin 14.3 g/dL (12.0-15.0); Lymphocyte # 1.62 X10^3/ul (0.83-4.51); Lymphocyte % 29.6 % (19-41); Mean Corpuscular Hgb 24.8 pg (27.0-32.0); Mean Corpuscular Volume 77.6 fL (81-99); Mean Platelet Vol. 9.3 fl (6.2-12.0); Monocyte# 0.37 X10^3/uL; Monocyte% 6.8 % (0-10); NRBC Flagged by Analyzer 0 % (0-5); Neutrophil # 3.34 X10^3/uL (2.7-7.7); Platelet Count 284 K/mm3 (150-450); RBC Distribution Width CV 13.6 % (11.6-14.6); RBC Distribution Width SD 38.5 fl (35.1-43.9); Red Blood Count 5.76 M/mm3 (4.2-5.4); White Blood Count 5.5 K/mm3 (4.4-11.0)
== END | disposition home or self-care (01) ==
LOC: PAVLAB 09:41
PROVIDERS: Referring Provider Obstetrics & Gynecology; Visit Provider Obstetrics & Gynecology
DX: N93.9 Abnormal uterine and vaginal bleeding, unspecified (principal)
CPT/HCPCS: 36415; 85025

== ENCOUNTER → 2022-07-13 | Outpatient (CLI) | payer OTHER, SELFPAY ==
[2022-07-14 21:07] LABS: Chlamydia By Nucleic Acid AMP Negative (Negative)
[2022-07-14 21:44] LABS: Gonococcus By Nucleic Acid AMP Negative (Negative)
== END | disposition home or self-care (01) ==
PROVIDERS: Visit Provider Obstetrics & Gynecology
DX: Z20.2 Contact with and (suspected) exposure to infections with a predominantly sexual mode of transmission (principal); N89.8 Other specified noninflammatory disorders of vagina
CPT/HCPCS: 87070; 87205; 87491; 87591

== ENCOUNTER → 2022-08-24 | Outpatient (CLI) | payer OTHER, SELFPAY ==
[2022-08-24 10:24] LABS: HIV - WCH Non-Reactive (Nonreactive); Hepatitis C Antibody Non-Reactive (Nonreactive); Syphilis Antibodies Non-reactive
[2022-08-25 05:07] LABS: HSV 1 IgG < 0.91 index (0.00-0.90); HSV 2 IgG < 0.91 index (0.00-0.90)
[2022-08-26 12:08] LABS: Chlamydia By Nucleic Acid AMP Negative (Negative); Gonococcus By Nucleic Acid AMP Negative (Negative)
== END | disposition home or self-care (01) ==
PROVIDERS: Nurse Practitioner Women's Health; Referring Provider Obstetrics & Gynecology; Visit Provider Obstetrics & Gynecology
DX: N89.8 Other specified noninflammatory disorders of vagina (principal); Z20.2 Contact with and (suspected) exposure to infections with a predominantly sexual mode of transmission
CPT/HCPCS: 36415; 86695; 86696; 86703; 86780; 86803; 87070; 87205; 87491; 87591

== ENCOUNTER → 2022-12-25 | Outpatient (CLI) | payer SELFPAY ==
[2022-12-28 07:08] LABS: Chlamydia By Nucleic Acid AMP Negative (Negative); Gonococcus By Nucleic Acid AMP Negative (Negative)
== END | disposition home or self-care (01) ==
PROVIDERS: Referring Provider Obstetrics & Gynecology; Visit Provider Obstetrics & Gynecology
DX: N89.8 Other specified noninflammatory disorders of vagina (principal)
CPT/HCPCS: 87070; 87077; 87186; 87205; 87491; 87591

== ENCOUNTER → 2023-03-08 | Outpatient (CLI) | payer OTHER, SELFPAY ==
[2023-03-13 10:09] LABS: Chlamydia By Nucleic Acid AMP Negative (Negative); Gonococcus By Nucleic Acid AMP Negative (Negative)
== END | disposition home or self-care (01) ==
LOC: LABSPEC 15:55
PROVIDERS: Referring Provider Advanced Practice Midwife; Visit Provider Advanced Practice Midwife
DX: N89.8 Other specified noninflammatory disorders of vagina (principal); Z11.3 Encounter for screening for infections with a predominantly sexual mode of transmission
CPT/HCPCS: 87070; 87205; 87491; 87591

== ENCOUNTER → 2023-05-11 | Outpatient (CLI) | payer OTHER, SELFPAY ==
--- NOTE | 2023-05-11 11:29 | US_ITS ---
STUDY: ULTRASOUND OF THE FEMALE PELVIS - COMPLETE REASON FOR EXAM: Female, 22 years old. Pelvic pain LMP: April 10, 2023. TECHNIQUE: Transabdominal and Transvaginal TECHNICAL QUALITY: Adequate. COMPARISON: Comparison is made with prior study dated January 06, 2022. FINDINGS: The uterus is anteverted and is in a midline position. The uterus measures 8.6 cm x 4.3 cm x 3.3 cm. There is a Nabothian cyst of the cervix. The endometrium measures 6.1 mm in thickness, and is hyperechoic. There is no demonstrated endometrial mass. There is no demonstrated myometrial mass. I.U.D. - The patient does not have an I.U.D. The right ovary is visualized. The right ovary measures 4.4 cm x 3.8 cm x 2.5 cm. There is no right ovarian cyst or ovarian mass. There is no visualized right adnexal mass or complex lesion. There is normal arterial and normal venous vascularity. The left ovary is visualized. The left ovary measures 3.8 cm x 3.4 cm x 2.7 cm. There is no left ovarian cyst or ovarian mass. There is no visualized left adnexal mass or complex lesion. There is normal arterial and normal venous vascularity. There is no fluid in the cul-de-sac. The pre void volume of the bladder was 398 ml. US/Pelvic w/ Transvaginal IMPRESSION: Normal female pelvis. Electronically Signed: Judd Smith MD at 12:52 EST ,
--- OUTSIDE RECORDS SUMMARY | 2023-05-11 11:50 | XMS RPT_ITS | CCD ---
Author Name Unknown Address [id number] [place] [address] Organization [facility] Care Team Providers Care 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 Name Role Phone Manuel HAYDEN, [place] Unavailable Radha Giraldo MD Unavailable [phone] Abhishek Garcia Primary Care Provider Manuel HAYDEN, [place] Unavailable [phone] Abhishek Garcia Primary Care Provider [phone] Humberto Man Unavailable Unavailable Abhishek Garcia Primary Care Provider Unavailava e Abhishek Garcia Primary Care Provider Unavailava e Abhishek Garcia Primary Care Provider UnavailABHISHEK Alegria Attending Unavailable ABHISHEK GARCIA Primary Care Unavailable ABHISHEK AMES Referring Unavailable ABHISHEK GARCIA Primary Care Unavailable TORIE, JIM R Attending Unavailable SELF, SELF Referring Unavailable ABHISHEK GARCIA Primary Care Unavailable FELICIANO, JIM R Referring Unavailable TORIE, JIM R Attending Unavailable ABHISHEK AMES Referring Unavailable ABHISHEK GARCIA Primary Care Unavailable ABHISHEK AMES Attending Unavailable ABHISHEK GARCIA Primary Care Unavailable FELICIANO, JIM R Referring Unavailable TORIE, JIM R Attending Unavailable ABHISHEK AMES Referring Unavailable ABHISHEK GARCIA Primary Care Unavailable TORIE, JIM R Attending Unavailable SELF, SELF Referring Unavailable ABHISHEK GARCIA Primary Care Unavailable TORIE, JIM R Attending Unavailable ABHISHEK AMES Attending Unavailable ABHISHEK AMES Admitting Unavailable ABHISHEK GARCIA Primary Care Unavailable ABHISHEK AMES Referring Unavailable ABHISHEK GARCIA Primary Care Unavailable ABHISHEK AMES Attending Unavailable ABHISHEK AMES Referring Unavailable GARCIA, ORLY Primary Care Unavailable ABHISHEK AMES Attending Unavailable ABHISHEK AMES Referring Unavailable ABHISHEK GARCIA Primary Care Unavailable ABHISHEK AMES Attending Unavailable ABHISHEK GARCIA Primary Care Unavailable FELICIANO, JIM R Referring Unavailable FELICIANOSTONEYE R Attending Unavailable ABHISHEK GARCIA Primary Care Unavailable FELICIANO, JIM R Attending Unavailable FELICIANO JIM R Referring Unavailable SELF, SELF Referring Unavailable ABHISHEK GARCIA Primary Care Unavailable ABHISHEK AMES Referring Unavailable ABHISHEK GARCIA Primary Care Unavailable ABHISHEK AMES Attending Unavailable SELF, SELF Referring Unavailable ABHISHEK GARCIA Primary Care Unavailable FELICIANO, JIM R Attending Unavailable ABHISHEK GARCIA Primary Care Unavailable FELICIANO, JIM R Referring Unavailable , NICOLE Attending Unavailable ABHISHEK GARCIA Primary Care Unavailable FELICIANO, JIM R Referring Unavailable FELICIANO, JIM R Attending Unavailable ABHISHEK GARCIA Primary Care Unavailable SELF, SELF Referring Unavailable ABHISHEK AMES Attending Unavailable ABHISHEK AMES Referring Unavailable ABHIHSEK GARCIA Primary Care Unavailable ABHISHEK AMES Attending Unavailable ABHISHEK GARCIA Primary Care Unavailable Abhishek Garcia Primary Care Provider Unavailava e ABHISHEK GARCIA Primary Care Unavailable MEHREEN HENSLEY Attending Unavailable SELF, SELF Referring Unavailable Medications Current Medications Medication Drug Class(es) Dates Sig (Normalized) Sig (Original) acetaminophen 24 mg/ml / codeine phosphate 2.4 mg/ml oral solution (15 sources) Opioid Agonist Start: 06-20-2018 End: 06-25-2018 take 15 mL by mouth every four hours as needed for pain acetaminophen-cod eine 120-12 MG/5ML Solution Indications: S/P arthroscopy of knee Take 15 mL by mouth every 4 hours as needed for Moderate Pain or Severe Pain for up to 5 days. 1 Bottle 0 06/20/2018 Active acetaminophen 325 mg / HYDROcodone bitartrate 5 mg oral tablet (1 source) Opioid Agonist Start: 06-20-2018 take 1-2 tablets by mouth every four hours as needed hydroCODone-aceta minophen (NORCO) 5-325 MG per tablet 1-2 tablet aspirin 325 mg oral tablet (9 sources) Platelet Aggregation Inhibitor, Nonsteroidal Anti-inflammatory Drug Start: 07-05-2022 take 1 tablet by mouth once daily Aspirin 325 MG tablet Indications: Internal derangement of multiple sites of right knee Take 1 by mouth daily. 42 tablet 0 07/05/2022 Active Completed/Discontinued Medications Medication Drug Class(es) Dates Sig (Normalized) Sig (Original) acetaminophen 325 mg oral tablet (4 sources) Start: 01-25-2021 End: 08-22-2021 take 2 tablets by mouth every six hours as needed acetaminophen 325 MG tablet Take 2 tablets by mouth every 6 hours as needed for Mild Pain. 0 01/25/2021 08/22/2021 Discontinued (Stop Taking at Discharge) acetaminophen 325 mg / oxyCODONE hydrochloride 5 mg oral tablet (1 source) Opioid Agonist Start: 08-22-2021 End: 08-22-2021 oxyCODONE-acetaminop hen (PERCOCET) 5-325 MG per tablet 1 tablet adapalene 0.001 mg/mg / benzoyl peroxide 0.025 mg/mg topical gel (17 sources) Retinoid End: 02-25-2019 Adapalene-Benzoyl Peroxide (EPIDUO) 0.1-2.5 % Gel Apply topically. 0 02/25/2019 Discontinued (Medication Reconciliation (suppress cancel msg)) calcium chloride 0.0014 meq/ml / potassium chloride 0.004 meq/ml / sodium chloride 0.103 meq/ml / sodium lactate 0.028 meq/ml injectable solution (3 sources) Start: 07-05-2022 End: 07-05-2022 Lactated ringers IV solution Problems Active Problems Problem Classification Problem Date Documented Date Episodic/Chronic Abdominal pain (3 sources) Lower abdominal pain; Translations: [Lower abdominal pain, unspecified] Onset: 05-10-2023 05-10-2023 Episodic Bacterial infection; unspecified site (1 source) Infection by methicillin sensitive Staphylococcus aureus; Translations: [Methicillin susceptible Staphylococcus aureus infection, unspecified site] Episodic Joint disorders and dislocations; trauma-related (20 sources) Derangement of right knee; Translations: [Unspecified internal derangement of right knee] Onset: 08-29-2019 11-02-2020 Chronic Joint disorders and dislocations; trauma-related (2 sources) Patellofemoral syndrome of right knee; Translations: [Patellofemoral pain syndrome of right knee] Malaise and fatigue (2 sources) Weakness; Translations: [Weakness] Onset: 08-09-2022 Episodic Menstrual disorders (4 sources) Irregular periods; Translations: [Irregular menstruation, unspecified] Onset: 11-16-2016 11-16-2016 Chronic Other congenital anomalies (2 sources) Discoid meniscus of right knee; Translations: [Discoid meniscus of right knee] Other connective tissue disease (2 sources) Muscle weakness (generalized); Translations: [Muscle weakness (generalized)] Onset: 08-11-2022 Episodic Other injuries and conditions due to external causes (2 sources) Injury of right knee; Translations: [Unspecified injury of right lower leg, initial encounter] Episodic Other nervous system disorders (2 sources) Other abnormalities of gait and mobility; Translations: [Other abnormalities of gait and mobility] Onset: 08-09-2022 Episodic Other non-traumatic joint disorders (5 sources) Knee pain; Translations: [Acute pain of right knee] Episodic Other non-traumatic joint disorders (2 sources) Stiffness of unspecified joint, not elsewhere classified; Translations: [Stiffness of unspecified joint, not elsewhere classified] Onset: 08-11-2022 Episodic Residual codes; unclassified (5 sources) History of arthroscopy of knee joint; Translations: [S/P arthroscopy of knee] Episodic Residual codes; unclassified (2 sources) Other specified health status; Translations: [Other specified health status] Onset: 08-11-2022 Episodic Residual codes; unclassified (2 sources) Other specified postprocedural states; Translations: [Other specified postprocedural states] Onset: 08-09-2022 Episodic Unclassified (1 source) Patient encounter status; Translations: [Preop testing] Unclassified (1 source) Finding of thigh; Translations: [Hamstring tightness] Past or Other Problems Problem Classification Problem Date Documented Date Episodic/Chronic Complications of surgical procedures or medical care (16 sources) Wound dehiscence; Translations: [Disruption of external operation (surgical) wound, not elsewhere classified, initial encounter] Onset: 03-09-2021 03-09-2021 Episodic Joint disorders and dislocations; trauma-related (19 sources) Current tear of lateral cartilage AND/OR meniscus of knee; Translations: [Other tear of lateral meniscus, current injury, unspecified knee, initial encounter] Onset: 08-29-2019 08-29-2019 Episodic Other injuries and conditions due to external causes (2 sources) Unspecified injury of right lower leg, initial encounter; Translations: [Unspecified injury of right lower leg, initial encounter] Onset: 04-28-2022 Episodic Other nervous system disorders (1 source) Postoperative pain ; Translations: [Other acute postprocedural pain] Episodic Other nervous system disorders (2 sources) Unspecified abnormalities of gait and mobility; Translations: [Unspecified abnormalities of gait and mobility] Onset: 03-10-2022 Episodic Other nervous system disorders (2 sources) Unspecified lack of coordination; Translations: [Unspecified lack of coordination] Onset: 03-10-2022 Episodic Other non-traumatic joint disorders (2 sources) Pain in right knee; Translations: [Pain in right knee] Onset: 03-10-2022 Episodic Residual codes; unclassified (13 sources) Patient encounter status; Translations: [Encounter for procedure for purposes other than remedying health state, unspecified] Onset: 01-24-2021 01-24-2021 Episodic NEGATED: Highlighted row has not occurred!Residual codes; unclassified (20 sources) Disease Episodic Results Test Name Value Interpretation Reference Range Facil ity Vital Signs Date Time Vital Sign Value Performing Clinician Faci lity 05-10-2023 08:56-0500 Body height 165.1 cm Mehreen Dackin PA Work Phone: [employer] 05-10-2023 08:56-0500 Body mass index (BMI) [Ratio] 27.29 kg/m2 Mehreen Dackin PA Work Phone: [employer] 05-10-2023 08:56-0500 Body temperature 97.39 [degF] Mehreen Dackin PA Work Phone: [employer] 05-10-2023 08:56-0500 Body weight 74.39 kg Mehreen Dackin PA Work Phone: [employer] 05-10-2023 08:56-0500 Diastolic blood pressure 69 mm[Hg] Mehreen Dackin PA Work Phone: [employer] 05-10-2023 08:56-0500 Heart rate 99 /min Mehreen Dackin PA Work Phone: [employer] 05-10-2023 08:56-0500 Respiratory rate 21 /min Mehreen Hensley PA Work Phone: [facility] 05-10-2023 08:56-0500 SaO2% (BldA) [Mass fraction] 99 % Mehreen Hensley PA Work Phone: [facility] 05-10-2023 08:56-0500 Systolic blood pressure 122 mm[Hg] Mehreen Hensley PA Work Phone: [facility] 07-05-2022 10:15-0400 Diastolic blood pressure 58 mm[Hg] Abhishek Ames MD Work Phone: [facility] 07-05-2022 10:15-0400 Heart rate 82 /min Abhishek Ames MD Work Phone: 4(573)874-808821 [place] [address] 07-05-2022 10:15-0400 Respiratory rate 13 /min Abhishek Ames MD Work Phone: 1(646)740-556121 [place] [address] 07-05-2022 10:15-0400 SaO2% (BldA) [Mass fraction] 96 % Abhishek Ames MD Work Phone: [facility] 07-05-2022 10:15-0400 Systolic blood pressure 124 mm[Hg] Abhishek Ames MD Work Phone: [facility] 07-05-2022 09:33-0400 Body temperature 97.3 [degF] Abhishek Ames MD Work Phone: [facility] 07-05-2022 06:35-0400 Body height 165.1 cm Abhishek Ames MD Work Phone: [facility] 07-05-2022 06:35-0400 Body mass index (BMI) [Ratio] 27.96 kg/m2 Abhishek Ames MD Work Phone: [facility] 07-05-2022 06:35-0400 Body weight 76.2 kg Abhishek Ames MD Work Phone: [facility] 10-05-2021 09:03-0400 Body height 162.6 cm Nicole Cope MD Work Phone: [facility] 10-05-2021 09:03-0400 Body mass index (BMI) [Ratio] 28.25 kg/m2 Nicole Cope MD Work Phone: [facility] 10-05-2021 09:03-0400 Body temperature 98.8 [degF] Nicole Cope MD Work Phone: [facility] 10-05-2021 09:03-0400 Body weight 74.66 kg Nicole Cope MD Work Phone: [facility] 10-05-2021 09:03-0400 Diastolic blood pressure 70 mm[Hg] Nicole Cope MD Work Phone: [facility] 10-05-2021 09:03-0400 Heart rate 88 /min Nicole Cope MD Work Phone: [facility] 10-05-2021 09:03-0400 SaO2% (BldA) [Mass fraction] 99 % Nicole Cope MD Work Phone: [facility] 10-05-2021 09:03-0400 Systolic blood pressure 120 mm[Hg] Nicole Cope MD Work Phone: [facility] 08-22-2021 16:45-0400 Body temperature 98.1 [degF] Abhishek Ames MD Work Phone: [facility] 08-22-2021 16:45-0400 Diastolic blood pressure 58 mm[Hg] Abhishek Ames MD Work Phone: [facility] 08-22-2021 16:45-0400 Heart rate 83 /min Abhishek Ames MD Work Phone: [facility] 08-22-2021 16:45-0400 Respiratory rate 21 /min Abhishek Ames MD Work Phone: 3(523)244-893291 [place] [address] 08-22-2021 16:45-0400 SaO2% (BldA) [Mass fraction] 98 % Abhishek Ames MD Work Phone: 0(118)791-014391 [place] [address] 08-22-2021 16:45-0400 Systolic blood pressure 116 mm[Hg] Abhishek Ames MD Work Phone: 1(128)095-823991 [place] [address] 08-22-2021 12:29-0400 Body height 162.6 cm Abhishek Ames MD Work Phone: 2(586)928-074791 [place] [address] 08-22-2021 12:29-0400 Body mass index (BMI) [Ratio] 27.46 kg/m2 Abhishek Ames MD Work Phone: 6(231)347-704891 [place] [address] 08-22-2021 12:29-0400 Body weight 72.58 kg Abhishek Ames MD Work Phone: 5(141)527-506391 [place] [address] 08-11-2021 16:43-0400 Body height 162.6 cm Abhishek Ames MD Work Phone: 9(490)448-965491 [place] [address] 08-11-2021 16:43-0400 Body mass index (BMI) [Ratio] 27.46 kg/m2 Abhishek Ames MD Work Phone: 9(006)355-985891 [place] [address] 08-11-2021 16:43-0400 Body weight 72.58 kg Abhishek Ames MD Work Phone: 6(916)404-724391 [place] [address] 08-11-2021 16:43-0400 Diastolic blood pressure 87 mm[Hg] Abhishek Ames MD Work Phone: 0(153)461-942891 [place] [address] 08-11-2021 16:43-0400 Systolic blood pressure 148 mm[Hg] Abhishek Ames MD Work Phone: 4(005)914-849091 [place] [address] 11-17-2020 11:00-0400 Diastolic blood pressure 66 mm[Hg] Abhishek Ames MD Work Phone: [facility] 11-17-2020 11:00-0400 Heart rate 85 /min Abhishek Ames MD Work Phone: [facility] 11-17-2020 11:00-0400 Respiratory rate 20 /min Abhishek Ames MD Work Phone: 3(196)269-099151 [address] 11-17-2020 11:00-0400 SaO2% (BldA) [Mass fraction] 98 % Abhishek Ames MD Work Phone: 6(887)468-345921 [place] [address] 11-17-2020 11:00-0400 Systolic blood pressure 119 mm[Hg] Abhishek Ames MD Work Phone: 2(095)101-451651 [address] 11-17-2020 10:16-0400 Body temperature 97.9 [degF] Abhishek Ames MD Work Phone: 2(312)903-367151 [address] 11-17-2020 07:55-0400 Body height 165.1 cm Abhishek Ames MD Work Phone: 0(177)721-715651 [address] 11-17-2020 07:55-0400 Body mass index (BMI) [Ratio] 27.69 kg/m2 Abhishek Ames MD Work Phone: 1(478)417-057721 [place] [address] 11-17-2020 07:55-0400 Body weight 75.48 kg Abhishek Ames MD Work Phone: 6(720)771-898251 [address] 04-29-2019 09:56-0500 BMI (Body Mass Index) 22.16 kg/m2 Lopez [facility] 04-29-2019 09:56-0500 Body Temperature 97.7 [degF] [facility] 04-29-2019 09:56-0500 Body weight 61.35 kg [facility] 04-29-2019 09:56-0500 Height 166.4 cm [facility] 11-26-2019 10:29-0500 BMI (Body Mass Index) 21.96 kg/m2 [facility] 02-25-2019 10:29-0500 Body Temperature 97.7 [degF] [facility] 02-25-2019 10:29-0500 Body weight 60.78 kg [facility] 02-25-2019 10:29-0500 Height 166.4 cm [facility] 09-12-2018 09:32-0400 BMI (Body Mass Index) 21.21 kg/m2 [facility] 09-12-2018 09:32-0400 Body Temperature 97.81 [degF] [facility] 09-12-2018 09:32-0400 Height 166.4 cm [facility] 09-12-2018 09:32-0400 Weight 58.7 kg [facility] 08-02-2018 10:42-0400 BMI (Body Mass Index) 20.83 kg/m2 [facility] 08-02-2018 10:42-0400 Body Temperature 98.29 [degF] [facility] 08-02-2018 10:42-0400 Height 166.4 cm [facility] 08-02-2018 10:42-0400 Weight 57.66 kg [facility] 07-15-2018 14:36-0400 Height 166.4 cm [facility] 07-05-2018 08:07-0400 BMI (Body Mass Index) 21.47 kg/m2 [facility] 07-05-2018 08:07-0400 Body Temperature 98.01 [degF] [facility] 07-05-2018 08:07-0400 Height 166.4 cm [facility] 07-05-2018 08:07-0400 Weight 59.42 kg [facility] 06-20-2018 12:05-0400 BP Diastolic 62 mm[Hg] [facility] 06-20-2018 12:05-0400 BP Systolic 124 mm[Hg] [facility] 06-20-2018 12:05-0400 Pulse (Heart Rate) 107 /[facility] 12:05-0400 Pulse [facility] 97 % [facility] 06-[facility]-2018 12:05-0400 Respiratory Rate 18 /min Lopez [facility] 06-20-2018 10:38-0400 Body Temperature 98.2 [degF] [facility] 06-20-2018 07:15-0400 BMI (Body Mass Index) 22.31 kg/m2 Lopez Bender [facility] 06-20-2018 07:15-0400 Height 162.6 cm Lopez [facility] 06-20-2018 07:15-0400 Weight 58.97 [facility] 06-05-2018 09:03-0500 BMI (Body Mass Index) 21.8 kg/m2 Greg [facility] 06-05-2018 09:03-0500 Body Temperature 98.4 [degF] Greg [facility] 06-05-2018 09:03-0500 BP Diastolic 72 mm[Hg] [facility] 06-05-2018 09:03-0500 BP Systolic 124 mm[Hg] [facility] 06-05-2018 09:03-0500 Height 165.1 cm Greg [facility] 06-05-2018 09:03-0500 Pulse (Heart Rate) 88 /min Greg Miya [facility] Encounters Encounter Date Encounter Type Care Provider Facility Start: 05-10-2023 ambulatory ABHISHEK Durán [facility] Start: 05-10-2023 End: 05-10-2023 Office outpatient new 30 minutes Eduar GARCIA Work Phone: [facility] [place] Procedures Date Procedure Procedure Detail Performing Clinician Start: 05-10-2023 Urnls dip stick/tablet rgnt auto w/o microscopy Mehreen GARCIA Work Phone: Start: 07-20-2022 Radiologic examination knee 1/2 views Jim Feliciano PAC Work Phone: Start: 04-28-2022 Mri any jt lower extrem w/o contrast matrl Abhishek Ames MD Work Phone: Start: 10-05-2021 Follow-up visit Follow-up NICOLE COPE Start: 08-22-2021 Urine test visual color cmprsn meths Jim Feliciano PA-C Work Phone: Start: 11-17-2020 Gonadotropin chorionic qualitative Abhishek Ames MD Work Phone: Start: 11-13-2020 SARS-CoV-2 (COVID-19) RNA [Presence] in Unspecified specimen by DILEEP with probe detection Abhishek Ames MD Work Phone: Start: 11-02-2020 Bone length studies Curtis Eid MD Work Phone: Start: 06-20-2018 PHOTOGRAPHS, PROC/OR (SCANNED) Lopez Bender Work Phone: Start: 06-20-2018 Choriogonadotropin ( test) [Presence] in Urine Lopez Bender Work Phone: H/O: surgery Status post surgery Jim LOPEZ Work Phone: History of operative procedure on knee Status post knee surgery Jim Feliciano PA-C Work Phone: History of operative procedure on knee Status post knee surgery Jim Feliciano PA-C Work Phone: Plan of Treatment Date Care Activity Detail Author Start: 06-13-2023 Tetanus vaccination TETANUS [facility] Start: 12-01-2022 Influenza vaccination [facility] Start: 09-01-2022 End: 09-01-2022 ambulatory 09/01/2022 Rehab Services Visit [facility] Jim Feliciano PAC [address] [place] [address] Catherine Vera, PT [address] [place] [address] [facility] Start: 08-31-2022 End: 08-31-2022 Patient encounter procedure 08/31/2022 Office Visit Sports Medicine Jim Feliciano PAC [address] [place] [address] [facility] Start: 08-30-2022 End: 08-30-2022 ambulatory 08/30/2022 Rehab Services Visit [facility] Jim Feliciano, PAC [address] [place] [address] Catherine Vera, PT [address] [place] [address] [facility] Start: 08-25-2022 End: 08-25-2022 ambulatory 08/25/2022 Rehab Services Visit [facility] Jim Feliciano PAC [address] [place] [phone] Catherine Vera, PT [address] [place] [address] [facility] Start: 08-23-2022 End: 08-23-2022 ambulatory 08/23/2022 Rehab Services Visit [facility] Jim Feliciano PAC [address] [place] [address] Catherine Vera, PT [address] [place] [address] [facility] Start: 08-18-2022 End: 08-18-2022 ambulatory 08/18/2022 Rehab Services Visit [facility] Jim Feliciano, PAC [address] [place] [address] Catherine Vera, PT [address] [place] [address] [facility] Start: 08-16-2022 End: 08-16-2022 ambulatory 08/16/2022 Rehab Services Visit [facility] Jim Feliciano, PAC [address] [place] [phone] Catherine Vera, PT [address] [place] [address] [facility] Start: 08-11-2022 End: 08-11-2022 ambulatory 08/11/2022 Rehab Services Visit [facility] Jim Feliciano, PAC [address] [place] [address] Remigio Guidry, DATABASE ADMIN [address] [place] [address] [facility] Start: 08-09-2022 End: 08-09-2022 ambulatory 08/09/2022 Rehab Services Visit [facility] Jim Feliciano, PAC [address] [place] [address] Catherine Vera, PT [address] [place] [address] [facility] Start: 08-04-2022 End: 08-04-2022 ambulatory 08/04/2022 Rehab Services Visit [facility] Jim Feliciano, PAC [address] [place] [address] Catherine Vera, PT [address] [place] [phone] [facility] Start: 08-02-2022 End: 08-02-2022 ambulatory 08/02/2022 Rehab Services Visit [facility] Jim Feliciano PAC [address] [place] [phone] Catherine eVra, PT [address] [place] [address] [facility] Start: 07-28-2022 End: 07-28-2022 ambulatory 07/28/2022 Rehab Services Visit [facility] Jim Feliciano, PAC [address] [place] [address] Catherine Vera, PT [address] [place] [phone] [facility] Start: 07-20-2022 End: 07-20-2022 Patient encounter procedure 07/20/2022 Office Visit Sports Medicine Jim Feliciano PAC [address] [place] [address] Sports Medicine [facility] Start: 07-05-2022 End: 07-05-2022 Arthroscopy knee diagnostic w/wo synovial bx spx ARTHROSCOPY KNEE Unspecified internal derangement of knee Internal derangement of multiple sites of right knee Failed orthopedic implant, initial encounter 07/05/2022 8:03 AM EDT [facility] Start: 07-05-2022 End: 07-05-2022 Removal implant deep REMOVAL HARDWARE Unspecified internal derangement of knee Internal derangement of multiple sites of right knee Failed orthopedic implant, initial encounter 07/05/2022 8:03 AM EDT [facility] Start: 05-09-2022 End: 05-09-2022 Telemedicine consultation with patient 05/09/2022 Telemedicine Sports Medicine Jim Feliciano PA-C [address] [place] [address] Sports Medicine [facility] Start: 04-28-2022 End: 04-28-2022 Patient encounter procedure 04/28/2022 Appointment Magnetic Resonance Imaging Abhishek Ames MD [address] [place] [id number] Imaging Outpatient Care [facility] Start: 04-14-2022 End: 04-14-2022 ambulatory 04/14/2022 Rehab Services Visit Sports Medicine and Rehabilitation Abhishek Ames MD [address] [place] [phone] Remigio Serrano, PT Sports Medicine Therapy [facility] Start: 04-07-2022 End: 04-07-2022 ambulatory 04/07/2022 Rehab Services Visit Sports Medicine and Rehabilitation Abhishek Ames MD [address] [place] [address] Remigio Serrano, PT Sports Medicine Therapy [facility] Start: 03-23-2022 End: 03-23-2023 MR Knee - right WO contrast MRI KNEE RIGHT WITHOUT CONTRAST Imaging Routine Injury of right knee, initial encounter Expected: 03/23/2022, Expires: 03/23/2023 [facility] Immunizations Immunization Date Immunization Notes Care Provider Jay Jay huntley 01-26-2009 influenza virus vacc ine, unspecified formulation [facility] Payers Date Payer Category Payer Private Health Insurance [facility] [id number] 2023-Present [address] [address] [place] [address] [id number] 2023 Unknown [id number] 2021 Unknown [id number] 2018 Unknown [id number] 2016 Unknown [id number] .[id number] 2016 Unknown [employer] [id number] 2016-Present [address] [place] [address] [id number] .[id number] 2000 Unknown [id number] 2.16.840.1.760629.3.579.2.3 56 2000 Unknown [id number] 2.16840.1.980011.3.579.2.5 94 2000 Unknown [id number] 2.840.1.546657.3.579.2.5 94 2000 Unknown [id number] 2.16840.1.339782.3.579.2.5 94 2000 Unknown [id number] 2.16.840.1.514996.3.579.2.5 94 2000 Unknown [id number] 2.16840.1.799928.3.579.2.5 94 2000 Unknown [id number] 2.16840.1.029963.3.579.2.5 94 2000 Unknown [id number] 2.16.840.1.880261.3.579.2.5 94 2000 Unknown [id number] 2.16.840.1.558446.3.579.2.5 94 2000 Unknown [id number] 2.16.840.1.992241.3.579.2.5 94 2000 Unknown [id number] 2.16.840.1.476159.3.579.2.5 94 2000 Unknown [id number] 2.16.840.1.778703.3.579.2.5 94 2000 Unknown [id number] 2.16.840.1.989449.3.579.2.5 94 2000 Unknown [id number] 2.16.840.1.824240.3.579.2.5 94 2000 Unknown [id number] 2.16.840.1.268341.3.579.2.5 94 2000 Unknown [id number] 2.16.840.1.504865.3.579.2.5 94 2000 Unknown [id number] 2.16.840.1.001189.3.579.2.5 94 2000 Unknown [id number] 2.16.840.1.883428.3.579.2.5 94 2000 Unknown [id number] 2.16.840.1.727648.3.579.2.5 94 2000 Unknown [id number] 2.16.840.1.706515.3.579.2.5 94 2000 Unknown [id number] 2.16.840.1.229151.3.579.2.5 94 2000 Unknown [id number] 2.16.840.1.246023.3.579.2.5 94 2000 Unknown [id number] 2.16.840.1.716791.3.579.2.9 83 Social History Date Type Detail Facility Start: 05-17-2018 End: 06-05-2018 Tobacco smoking status NHIS Never smoker [facility] Start: 2000 Sex Assigned At Not on file [facility] Start: 06-05-2018 End: 11-05-2019 History SDOH Alcohol Frequency 1 [facility] Start: 02-25-2019 End: 07-20-2022 Alcohol intake Lifetime non-drinker (finding) [facility] Start: 05-17-2018 Tobacco use and exposure Never used [facility] Start: 06-27-2021 End: 07-07-2021 Exposure to SARS-CoV-2 (event) Not sure [facility] Start: 03-13-2022 End: 05-09-2022 Exposure to SARS-CoV-2 (event) Unable to assess [facility] Start: 05-10-2023 Alcohol intake Current drinker of alcohol (finding) [facility] Start: 11-05-2019 End: 05-10-2023 History of Social function [facility] Start: 11-05-2019 End: 05-10-2023 Alcohol Use Disorder Identification Test - Consumption [AUDIT-C] [facility] How often to you hav e a drink containing alcohol? Never [facility] Average Number of Drinks Not on file [facility] Start: 11-01-2019 Gender identity Identifies as female gender (finding) [facility] Start: 11-01-2019 Sexual orientation Heterosexual (finding) [facility] em Medical Equipment Procedure Code Equipment Code Equipment Original Text Equi pment Identifier Dates [employer] [id number] Goals Date Patient Goal Desired Activity /State Personal health goal Functional Status Date Assessment Result Facility NEGATED: Highlighted row Functional performance Functional status health issues are not documented [facility] Work Phone: Mental Status Date Assessment Result Facility NEGATED: Highlighted row Cognitive function [Interpretation] Cognitive status health issues are not documented [facility] Work Phone: Clinical Notes 11-02-2020 to 05-10-2023 RADHA Pham - 05/10/2023 8:45 AM JESSICA Means - 07/20/2022 2:20 PM Eliseo Rollins RN - 07/05/2022 10:43 AM Bobbi Ibrahim RN - 07/05/2022 9:29 AM ED[facility]aiza Instructions Note Date & Type Note Facility 05-10-2023 History of Presen t illness Narrative Images from the original note were not included. HPI Mainor Martini presents to the [facility] with Chief Complaint Patient presents with Abdominal Pain Pt c/o abdominal pain and a headache since yesterday. Pt states having pain on right side of abdomen and pain in her back. Patient presents today with acute lower abdominal pain and headache. Patient states pain is bilateral, but worsening pain on the right side. Patient states she is having some pain in her lower back as well. Patient denies recent illness, urinary urgency, nausea vomiting, blood in her urine, CVA tenderness, fevers. Patient states she does have some urinary frequency but she has increase her fluid intake. Patient states she has had her appendix removed. The following sections were personally reviewed by me: Allergies Meds Problems Med Hx Surg Hx Fam Hx ROS Review of Systems 8 systems reviewed with patient, negative unless specifically mentioned in history of present illness PHYSICAL EXAM Visit Vitals BP 122/69 (BP Location: Right arm, BP Position: Sitting) Pulse 99 Temp 97.4 F (36.3 C) (Oral) Resp 21 Ht 1.651 m (5' 5 ) Wt 74.4 kg (164 lb) LMP 04/19/2023 SpO2 99% BMI 27.29 kg/m Physical Exam Vitals and nursing note reviewed. Constitutional: Appearance: Normal appearance. HENT: Head: Normocephalic. Right Ear: Tympanic membrane, ear canal and external ear normal. Left Ear: Tympanic membrane, ear canal and external ear normal. Nose: Nose normal. No congestion or rhinorrhea. Mouth/Throat: Mouth: Mucous membranes are moist. Pharynx: No oropharyngeal exudate or posterior oropharyngeal erythema. Eyes: Extraocular Movements: Extraocular movements intact. Pupils: Pupils are equal, round, and reactive to light. Cardiovascular: Rate and Rhythm: Normal rate and regular rhythm. Pulses: Normal pulses. Heart sounds: Normal heart sounds. Pulmonary: Effort: Pulmonary effort is normal. Breath sounds: Normal breath sounds. Abdominal: General: Bowel sounds are normal. There is no distension. Palpations: Abdomen is soft. There is no mass. Tenderness: There is abdominal tenderness in the right lower quadrant and left lower quadrant. There is no right CVA tenderness, left CVA tenderness, guarding or rebound. Hernia: No hernia is present. Musculoskeletal: General: Normal range of motion. Cervical back: Normal range of motion and neck supple. Skin: General: Skin is warm and dry. Neurological: General: No focal deficit present. Mental Status: She is alert and oriented to person, place, and time. Psychiatric: Mood and Affect: Mood normal. Behavior: Behavior normal. Judgment: Judgment normal. RESULTS Recent Results (from the past 1 hour(s)) POCT URINE DIPSTICK AUTOMATED Collection Time: 05/10/23 9:06 AM Result Value Ref Range POCT APPEARANCE, URINE clear POCT COLOR, URINE yellow POCT GLUCOSE, URINE neg mg/dL POCT BILIRUBIN, URINE neg POCT KETONES, URINE 40 mg/dL POCT SPECIFIC GRAVITY, URINE 1.020 1.001 - 1.035 POCT BLOOD, URINE trace-intact POCT PH, URINE 7.5 (A) 5 - 7 POCT PROTEIN, URINE neg mg/dL POCT UROBILINOGEN, URINE 0.2 0 - 2 E.U./dL POCT NITRITE, URINE neg POCT LEUKOCYTE, URINE neg POCT ESTERASE, URINE POCT BACTERIA, URINE POCT WBC, URINE POCT RBC, URINE POCT AMORPHOUS, URINE POCT CASTS, QUANTITATIVE, URINE POCT SQUAMOUS EPIS, URINE POCT RENAL EPIS, URINE POCT CRYSTALS, URINE POCT URINE COMMENTS, URINE POCT MICROSCOPIC ASSESSMENT/PLAN 1. Lower abdominal pain Orders Placed This Encounter POCT URINE DIPSTICK AUTOMATED Urine negative for UTI. Patient's pain on exam is consistent with ovarian pain. Discussed the limitations of the urgent care setting for diagnostic imaging and laboratory studies. Advised patient that based on complaints and concerns that evaluation and treatment in the ER is appropriate. Patient's mother is at bedside and is able to transport patient to ER. Patient is hemodynamically stable. Patient and mother agreeable to plan. White sheet signed. If symptoms worsen patient was advised to follow up in our office, primary care provider or the Emergency Dept. Benefits, Risks, Contraindications, and Complications of recommended treatments were explained. The patient understands and agrees to proceed with the plan. documented in this encounter [employer] [facility] 07-20-2022 History of Presen t illness Narrative Chief Complaint Patient presents with Right Knee - Post Op Visit 2 wk s/p R knee arthroscopy/removal of hardware (DOS 07/05/2022).Patient states the knee is doing good and she is feeling great. Patient has gone to PT once due to openings. No complications. No new questions or concerns. PROCEDURES RIGHT KNEE--diagnostic arthroscopy - Right and Removal Hardware - Right on 07/05/2022 CURRENT CONDITION Mainor is seen for postoperative follow up now 14 day(s) postop. Formal physical therapy is in progress. Narcotic pain medication is not being used. Anticoagulation medication is being used. Current problems or concerns: doing well with no complaints at this time. She denies any fevers, chills, night sweats, nausea, vomiting. She denies excessive numbness, tingling, calf pain, chest pain, shortness of breath. She denies erythema, warmth, excessive drainage from the surgical site. PHYSICAL EXAM Pleasant Wt Readings from Last 1 Encounters: 07/05/22 76.2 kg (168 lb) Ht Readings from Last 1 Encounters: 07/05/22 1.651 m (5' 5 ) 22 y.o. female in no acute distress. Alert and oriented x 3. GAIT: full weight bearing as tolerated Right Lower Extremity: Sutures were removed and steri-strips applied. The incisions are benign--clean, dry, and intact with no erythema, warmth, purulent drainage, or other signs of infection. 2+ distal pulses and sensation intact. Postsurgical abnormal contour is present. Knee effusion: 1+ Range Of Motion: 0-120 Quad Tone: fair Calf Tenderness: No Xrays obtained and reviewed in the office today: Yes CONTRALATERAL EXAM Left Knee Exam: No skin lesions, erythema, or warmth. No joint effusion. No joint line tenderness. Negative Lior. Ligaments stable. Quad tone good. ROM 0-140 ASSESSMENT 14 days status post: RIGHT KNEE--diagnostic arthroscopy - Right and Removal Hardware - Right PLAN -Procedure Review: The arthroscopic pictures and surgical procedures were reviewed in detail. All questions were answered. -Wound Care: We cautioned on the signs/symptoms of infection to be aware of. Instructed patient to allow steri-strips to fall off on their own. Instructed the patient on no bathing, hot tubs, or water immersion. -DVT Prophylaxis: We cautioned on signs/symptoms of DVT, and gave instructions to continue wearing EDISON hose for one more week. -Pain Management: We advised use of pain medication as needed. We stressed the importance of no alcohol, Tylenol products, or other pain medications while on prescribed pain medication. -Physical Therapy: We stressed the importance of continuing home exercises and formal PT in accordance with MES protocol. -Swelling Control: We stressed the importance of swelling control with RICE treatment as needed. -Follow Up: Return for follow up in 4 weeks. -CPM - No -Imaging needed at next visit - No. documented in this encounter [facility] 07-05-2022 History of Presen t illness Narrative 10:43 AM Reviewed AVS, discharge instructions, iceman, prescriptions, follow-up appointment, and when to call the office with patient and patient's mother. All questions answered. Peripheral IV access removed. Prescriptions sent to patient's pharmacy. Patient states readiness for discharge. Jalyn Rollins RN documented in this encounter [facility] 07-05-2022 Nurse Surgical operation note This patient has recovered sufficiently for transfer to PACU for postop care. Handoff given to PACU, RN. Hardware sent to decontam to be processed for patient. [facility] 07-05-2022 Nurse Note This patient has recovered sufficiently for transfer to PACU for postop care. Handoff given to PACU, RN. Hardware sent to decontam to be processed for patient. documented in this encounter [facility] 07-05-2022 Note Formatting of this n ote is different from the original. Mainor Martini ([id number]) PRE OPERATIVE DIAGNOSIS Unspecified internal derangement of knee [M23.90] Internal derangement of multiple sites of right knee [M23.91] POST OPERATIVE DIAGNOSIS Post-Op Diagnosis Codes: * Unspecified internal derangement of knee [M23.90] * Internal derangement of multiple sites of right knee [M23.91] * Failed orthopedic implant, initial encounter [T84.528A] PROCEDURE PERFORMED Procedure(s) (LRB): RIGHT KNEE--diagnostic arthroscopy (Right) REMOVAL HARDWARE (Right) PRIMARY CLOSURE Yes INTRAOPERATIVE FINDINGS No significant abnormalities SURGEON Surgeon(s) and Role: * Abhishek Ames MD - Primary ANESTHESIOLOGIST Anesthesiologist: Miles Morales MD PRECISE WINDER: Breanna Figueroa APRN-PRECISE WINDER SURGICAL STAFF [employer] Network Architect: Nisreen Ibrahim RN Physician Finished Carpet Inspector: Jim Feliciano [facility] [employer] Network Architect: Curtis Lei RN Major Assembly Inspector: Cyndi Prieto COMPLICATIONS None ESTIMATED BLOOD LOSS Minimal SPECIMENS No specimen sent * No specimens in log * Abhishek Ames MD July 05, 2022 9:11 AM [facility] 07-05-2022 Miscellaneous Notes Mainor Martini ([id number]) PRE OPERATIVE DIAGNOSIS Unspecified internal derangement of knee [M23.90] Internal derangement of multiple sites of right knee [M23.91] POST OPERATIVE DIAGNOSIS Post-Op Diagnosis Codes: * Unspecified internal derangement of knee [M23.90] * Internal derangement of multiple sites of right knee [M23.91] * Failed orthopedic implant, initial encounter [T84.483E] PROCEDURE PERFORMED Procedure(s) (LRB): RIGHT KNEE--diagnostic arthroscopy (Right) REMOVAL HARDWARE (Right) PRIMARY CLOSURE Yes INTRAOPERATIVE FINDINGS No significant abnormalities SURGEON Surgeon(s) and Role: * Abhishek Ames MD - Primary ANESTHESIOLOGIST Anesthesiologist: Miles Morales MD PRECISE WINDER: Breanna Figueroa APRN-PRECISE WINDER SURGICAL STAFF [employer] Network Architect: Nisreen Ibrahim RN Physician Finished Carpet Inspector: JESSICA [employer] Network Architect: Curtis Lei RN Major Assembly Inspector: Khrisleroybrandi Carranzaronald COMPLICATIONS None ESTIMATED BLOOD LOSS Minimal SPECIMENS No specimen sent * No specimens in log * Abhishek Ames MD July 05, 2022 9:11 AM documented in this encounter [facility] 07-05-2022 Hospital Discharg e instructions JESSICA Cazares - 07/05/2022 7:13 AM EDT Home Care After Ambulatory Surgery The following instructions will help you care for yourself, or be cared for upon your return home today. These are guidelines for your care right after surgery only. Diet: Drink plenty of liquids and eat light meals today. Start your regular diet tomorrow or as tolerated. Anesthesia Precautions & Expectations: After anesthesia, rest for [address], drink alcoholic beverages or make any important decisions during this time. General anesthesia may cause a sore throat, jaw discomfort or muscle aches. These symptoms can last for one or two days. What to Expect after surgery: Minimal drainage from the incision. Mild to moderate discomfort and tenderness. Call your Doctor for: Pain not relieved with medicines. Increased amounts of redness, swelling, or any drainage (pus) from the incision. Temperature above 101 degrees. Nausea and vomiting not resolved in 24 hours. YOUR POSTOPERATIVE APPOINTMENT Call your Surgeon's office to make a follow up appointment if you do not have one already scheduled. POLARCARE DEVICE 20 minutes on, 1 hour off, 4-6 sessions per day. Do not apply directly to skin to avoid frostbite WEIGHT BEARING STATUS WEIGHT BEARING STATUS: Full weight bearing- wean off of crutches when Physical Therapist determines adequate quad function and no limp BRACE STATUS BRACE STATUS: Hinge knee brace- NO CPM MACHINE CPM MACHINE: No BLOOD CLOT PREVENTION Eliquis 2.5 mg twice daily for 2-6 weeks OR Aspirin 325 mg once daily for 6-12 weeks WOUND CARE Keep dressings on for 3 days after surgery. You may then remove and apply bandages over incisions. Some bleeding after surgery is normal--do not be alarmed if some soaks through dressings. To avoid infection keep your incisions clean and dry. After the third day you may shower if you cover the incisions with some type of protection (like a plastic bag or saran wrap). No bathing, hot tubs, or water immersion until sutures are removed and scabs have fully healed. Do not remove your sutures--they will be removed in the clinic at the appropriate time. PAIN MANAGEMENT You will receive a prescription for pain medication the day of surgery--take as directed. Common side effects are nausea, drowsiness, and constipation. Consider taking the medication with food. Try an qdya-ptv-qsehvpo laxative for constipation if necessary. Do not operate a motor vehicle or heavy machinery while on narcotic pain medication. When taking you pain medication do not consume alcohol or take any other narcotic pain medications or sedatives You should take Tylenol (1000mg every 6 hours) and ibuprofen (400 mg every 6 hours with food) to minimize that amount of oxycodone you need to take. NSAIDs are ok to take with aspirin or the eliquis as long as the patient does not have any GI history of upset or stomach ulcer. NSAID-type medications have two very important potential side effects: gastrointestinal irritation including hemorrhage and renal injuries. Please take the medication with food and stop if you experience any GI upset (vomiting, abdominal pain or black/bloody stools) ICING technique Ice with either the cold pack or the ice man (whichever is applied or given day of surgery) 20min on and 2hrs off. Please make sure to have a barrier between your skin and the ice to protect your skin/incision from banks bite. PHYSICAL THERAPY If you were given home exercises to do, begin these 24 hours after surgery. If indicated, you may receive a prescription for physical therapy. Therapy appointments are usually set up prior to surgery. If you do not have a physical therapy appointment scheduled, please call the office to get your appointment scheduled. Therapy usually begins 3-5 days after surgery. If you are not doing PT at an [facility] facility, please have your therapist contact our PT department ([phone]) for a protocol. A knee arthroscopy does not require a protocol. Stiffness and discomfort are common after surgery. Try to continue your exercises as they are important for recovery and may help your symptoms. EDISON HOSE If indicated, you may receive EDISON hose stockings the day of surgery. These are used to improve circulation and to help prevent blood clots. If this applies to you, you will begin wearing one stocking on you non-operative leg in the pre-op area. Add the other stocking to your operative leg after you have removed the dressing on the third day after surgery. Wear at all times except when bathing. Take care that they are worn smoothly and are not bunching up behind your knee or thigh. They can be laundered in cold water with mild detergent, 15-20 minutes on low heat or air dry. These will typically be worn for 2 weeks following surgery. OTHER IMPORTANT INSTRUCTIONS Avoid placing a pillow under your knee for extended periods of time, especially for sleeping at night--it will make getting your full extension back very difficult and more painful. You may prop something under your ankle to help with extension. Use your crutches as directed paying close attention to your prescribed weight bearing status. Try to keep your leg elevated and ice consistently--this will help some with pain and swelling. Avoid long periods of sitting, bed rest, or travel for the first two weeks after surgery as this can contribute to developing blood clots. Do not drive until cleared by your physician. The effects of anesthesia may linger after your surgery and can cause drowsiness, nausea, and vomiting. Do not make important decisions within the next 24 hours. EMERGENCY CARE Contact your Surgeon's office if you experience any of the following: Calf pain, chest pain, or shortness of breath Fever over 101 degrees (low-grade fever after surgery is not uncommon) Spreading redness, excessive pus-like or bloody drainage from incisions Painful swelling or numbness Unrelenting pain Excessive nausea or vomting For after-hours emergencies--call the main office number at [phone] or [phone] to contact the on-call orthopedic physician. If you experience a life-threatening emergency, go to the nearest emergency room as soon as possible. Knee Team Surgeon contact info: Dr Abhishek Ames Office# [phone] documented in this encounter [facility] 03-23-2022 History of Presen t illness Narrative Chief Complaint Patient presents with Right Knee - Condition Update Fu 6m 29d R knee I&D of wound 08/22/21-lateral meniscus allograft transplant (DOS 01/24/21). She's still having a lot of pain. Pain with all activity. She has tried massage therapy, PT, NMES machine with no relief. She has tried going to the gym to strength but that causes pain. She has improved with ROM. 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 CURRENT CONDITION Mainor is seen for postoperative follow up She is still doing physical therapy. She still has pain over her lateral compartment after long day of work. No systemic signs of infection. She denies any fevers, chills, night sweats, nausea, vomiting. She denies excessive numbness, tingling, calf pain, chest pain, shortness of breath. She denies erythema, warmth, excessive drainage from the surgical site. PHYSICAL EXAM Pleasant Wt Readings from Last 1 Encounters: 10/05/21 74.7 kg (164 lb 9.6 oz) Ht Readings from Last 1 Encounters: 10/05/21 1.626 m (5' 4 ) 21 y.o. female in no acute distress. Alert and oriented x 3. GAIT: full weight bearing as tolerated Right Lower Extremity: The incisions are benign--clean, dry, and intact with no erythema, warmth, purulent drainage, or other signs of infection. 2+ distal pulses and sensation intact. Postsurgical abnormal contour is present. Knee effusion: trace Range Of Motion: 0-135 Lateral joint line tenderness Quad Tone: fair Calf Tenderness: No Xrays obtained and reviewed in the office today: No. CONTRALATERAL EXAM Left Knee Exam: No skin lesions, erythema, or warmth. No joint effusion. No joint line tenderness. Negative Lior. Ligaments stable. Quad tone good. ROM 0-140 ASSESSMENT right knee I and D of wound - Right on 08/22/2021 03/14/21 1) Right knee wound revision closure 2) Right knee arthroscopic synovectomy of multiple compartments knee R knee lateral meniscus allograft transplant (DOS 01/24/21). PLAN Continue physical therapy per protocol. We will continue to monitor her symptoms. She understands that she may continue to have lateral compartment pain. No chief complaint on file. PROCEDURES right knee I and D of wound - Right on 08/22/2021 03/14/21 1) Right knee wound revision closure 2) Right knee arthroscopic synovectomy of multiple compartments knee R knee lateral meniscus allograft transplant (DOS 01/24/21). CURRENT CONDITION Mainor is seen for postoperative follow up Formal physical therapy is in progress. Narcotic pain medication is not being used. Current problems or concerns: no major changes Mainor is in a lot of pain. It is hard for her to describe the discomfort she is feeling but it is every day. At rest and with activity. It is diffuse and not much helps to relieve it. there is not any active signs of infection at this time. She denies any fevers, chills, night sweats, nausea, vomiting. She denies excessive numbness, tingling, calf pain, chest pain, shortness of breath. She denies erythema, warmth, excessive drainage from the surgical site. PHYSICAL EXAM Pleasant Wt Readings from Last 1 Encounters: 10/05/21 74.7 kg (164 lb 9.6 oz) Ht Readings from Last 1 Encounters: 10/05/21 1.626 m (5' 4 ) 21 y.o. female in no acute distress. Alert and oriented x 3. GAIT: full weight bearing as tolerated Right Lower Extremity: The incisions are benign--clean, dry, and intact with no erythema, warmth, purulent drainage, or other signs of infection. 2+ distal pulses and sensation intact. Postsurgical abnormal contour is present. Knee effusion: none Range Of Motion: 0-135 Quad Tone: good Calf Tenderness: No Xrays obtained and reviewed in the office today: No. CONTRALATERAL EXAM Left Knee Exam: No skin lesions, erythema, or warmth. No joint effusion. No joint line tenderness. Negative Lior. Ligaments stable. Quad tone good. ROM 0-140 ASSESSMENT right knee I and D of wound - Right on 08/22/2021 03/14/21 1) Right knee wound revision closure 2) Right knee arthroscopic synovectomy of multiple compartments knee R knee lateral meniscus allograft transplant (DOS 01/24/21). ICD-10-CM 1. Injury of right knee, initial encounter [id number] MRI KNEE RIGHT WITHOUT CONTRAST PLAN She still feels lot discomfort. Unfortunately his right hard for me and now if she has anything internal or not. Her exam today has no effusion but she is globally tender laterally. She does not feel like it is coming from the plate. She has no signs of infection. I think he is best for skin MRI to see what it shows even though she knows this may be misleading. She is in agreement with this. If this is overall looks good no major findings I recommend injection therapy potentially seeing the pain specialist at some point she may want her plate removed -Physical Therapy: We stressed the importance of continuing home exercises and formal PT in accordance with her current protocol. -Swelling Control: We stressed the importance of swelling control with RICE treatment as needed. - she has not seen Dr Bandar Feliciano for pain modalities. -Follow Up: Return for follow up with jim after MR video visit documented in this encounter [facility] 11-04-2021 History of Presen t illness Narrative Chief Complaint Patient presents with Right Knee - Condition Update Fu R knee. h/o multiple R knee surgeries including recent R knee osteotomy and meniscal transplant in Dec 2020 complicated by wound dehiscance and underwent I&D on 08/22/21 with MSSA wound infection. ISO Test today. States more sensative anterior R knee pain. Per PT: ROM okay, 2+ effusion. Pt reports over the summer has been jet skiing and tubing over 03 of October, had pain after and hasn't done since. Did have pain starting 2 month ago after incision was closed. Pain can be as bad as 8/10 pain. Other Pain is aching/throbbing. Ice for pain mgt. Stretching, attempts strength training but causes pain. PROCEDURES right knee I and D of wound - Right on 08/22/2021 03/14/21 1) Right knee wound revision closure 2) Right knee arthroscopic synovectomy of multiple compartments knee R knee lateral meniscus allograft transplant (DOS 01/24/21). CURRENT CONDITION Mainor is seen for postoperative follow up Formal physical therapy is in progress. However, she basically took the whole month of August/September off of formal PT. Narcotic pain medication is not being used. Current problems or concerns: Mainor is in a lot of pain. It is hard for her to describe the discomfort she is feeling but it is every day. At rest and with activity. It is diffuse and not much helps to relieve it. She is hoping for some answers and is willing to try anything for some relief. ID does not believe there is any active signs of infection at this time. She tries to complete an ISO today but was only able to complete the ISO metric test due to pain. 30% quad deficit. She denies any fevers, chills, night sweats, nausea, vomiting. She denies excessive numbness, tingling, calf pain, chest pain, shortness of breath. She denies erythema, warmth, excessive drainage from the surgical site. PHYSICAL EXAM Pleasant Wt Readings from Last 1 Encounters: 10/05/21 74.7 kg (164 lb 9.6 oz) Ht Readings from Last 1 Encounters: 10/05/21 1.626 m (5' 4 ) 21 y.o. female in no acute distress. Alert and oriented x 3. GAIT: full weight bearing as tolerated Right Lower Extremity: The incisions are benign--clean, dry, and intact with no erythema, warmth, purulent drainage, or other signs of infection. 2+ distal pulses and sensation intact. Postsurgical abnormal contour is present. Knee effusion: trace Range Of Motion: 0-135 Quad Tone: fair Calf Tenderness: No Xrays obtained and reviewed in the office today: No. CONTRALATERAL EXAM Left Knee Exam: No skin lesions, erythema, or warmth. No joint effusion. No joint line tenderness. Negative Lior. Ligaments stable. Quad tone good. ROM 0-140 ASSESSMENT right knee I and D of wound - Right on 08/22/2021 03/14/21 1) Right knee wound revision closure 2) Right knee arthroscopic synovectomy of multiple compartments knee R knee lateral meniscus allograft transplant (DOS 01/24/21). PLAN -Physical Therapy: We stressed the importance of continuing home exercises and formal PT in accordance with her current protocol. -Swelling Control: We stressed the importance of swelling control with RICE treatment as needed. -referral placed to see Dr Bandar Feliciano for pain modalities. Script for massage therapy and NMES machine Is going to continue with PT voltaren gel sent to pharmacy -Follow Up: Return for follow up in 2 months with ISO test documented in this encounter [facility] 10-05-2021 History of Presen t illness Narrative INFECTIOUS DISEASE CONSULTATION REQUESTING PHYSICIAN: Jim Feliciano PA-C REASON FOR CONSULTATION: Moderate Growth Staphylococcus aureus Specimen collected following a washout procedure Patient S/P right knee osteotomy and meniscal transplant HISTORY OF PRESENT ILLNESS: Mainor Martini is a 21 y.o. female with h/o multiple R knee surgeries including recent R knee osteotomy and meniscal transplant in Dec 2020 complicated by wound dehiscance and underwent I&D on 08/22/21 with MSSA wound infection. Initial injury in high school (2016). R knee surgery for patellar relocation. Then had meniscal repair. Had continued pain. Meniscal continued to tear so had multiple surgeries but had continued problems and pain. Was then referred to Dr. Justin and underwent several surgeries starting in 2019. Had meniscal transplant and osteotomy in Dec 2020. Then developed drainage from R lateral incision with wound dehiscence with purulent drainage, swelling, red, painful and aching starting at the end of Jan. In Mar 2021 has surgery and wound vac placement. Had skin reaction to wound vac dressing but had improvement in the wound and had been doing well but still had an area of wound dehiscence. She was treated with keflex BID x 5 days without much improved but tolerated Keflex well. Due to her continued symptoms she underwent I&D on 08/22. Operative note describes: Did take a little soft tissue biopsy as well and then as we went underneath the full thickness beneath the fat, we were able to feel a little bit of area of induration between that area of the skin layer. This was going toward her other incision. As we kind of curettaged the area we did find a small pocket of what appeared to be purulence. we did not see any other signs of infection, nothing obviously deep. This was more kind of a superficial area. Operative cultures grew MSSA and she was treated with Clinda QID x 10 days but did not finish antibiotic due to GI side effects. Only took about 8 days of the antibiotics. Her knee has been doing better since surgery but about 3 weeks after surgery incision broke open and was bleeding. No other drainage or bleeding since then. She does have continued R lateral knee aching pain. Located on the top and later side of the knee. Good ROM of knee. Able to work but has increased pain and swelling at the end of the day. No warmth or redness since surgery No systemic symptoms. No fever or chills. Energy level normal. She is seen in clinic accompanied by her mother. They are concerned regarding her risk for future infection with anticipate need for TKA in the future. 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 REVIEW OF SYSTEMS: Review of Systems - (all positives in bold, otherwise negative) Gen: fever, chills, weight loss, fatigue, night sweats HEENT: visual changes, hearing loss, sore throat, dysphagia Cardiac: chest pain, palpitations, orthopnea Resp: shortness of breath, wheezing, cough, sputum, hemoptysis GI: nausea, vomiting, diarrhea, abdominal pain : urinary frequency, urgency, dysuria, MSk: back pain, joint pain, swelling SKIN: rash, redness Neuro: headache, numbness, tingling, weakness Psych: anxiety, depression PAST MEDICAL HISTORY: Past Medical History: Diagnosis Date Acne Dental disease 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 Exercise tolerance finding METS > 4 Pain TODAY RIGHT KNEE PAIN IS A 6 Wears glasses WEARS OCCASIONALLY PAST SURGICAL HISTORY: Past Surgical History: Procedure Laterality Date DEBRIDEMENT SKIN OPEN WOUND Right 08/22/2021 Laterality: Right; Surgeon: Abhishek Ames MD; Location: [facility] OR CLOSURE WOUND DEHISCENCE Right 03/14/2021 Laterality: Right; Surgeon: Elder Christianson MD; Location: [facility] OR ARTHROSCOPY KNEE W/ SYNOVECTOMY Right 03/14/2021 Laterality: Right; Surgeon: Elder Christianson MD; Location: [facility] OR ARTHROSCOPY KNEE W/ CHONDROPLASTY/ABRASION ARTHROPLASTY Right 01/24/2021 Laterality: Right; Surgeon: Abhishek Ames MD; Location: [facility] MA[facility] OR OSTEOTOMY FEMUR SHAFT OR SUPRACONDYLAR W/ FIXATION Right 01/24/2021 Laterality: Right; Surgeon: Abhishek Ames MD; Location: [facility] OR ARTHROSCOPY KNEE W/ TRANSPLANT MENISCUS LATERAL Right 01/24/2021 Laterality: Right; Surgeon: Abhishek Ames MD; Location: [facility] OR ARTHROSCOPY KNEE W/ FB REMOVAL Right 11/17/2020 Laterality: Right; Surgeon: Abhishek Ames MD; Location: [facility] PERIOP ARTHROSCOPY KNEE W/ MENISCECTOMY Right 11/17/2020 Laterality: Right; Surgeon: Abhishek Ames MD; Location: [facility]OP ARTHROSCOPY KNEE W/ MENISCUS REPAIR Right 06/16/2020 Laterality: Right; Surgeon: Abhishek Ames MD; Location: [facility]IOP ARTHROSCOPY KNEE W/ MENISCECTOMY Right 06/16/2020 Laterality: Right; Surgeon: Abhishek Ames MD; Location: [facility] PERIOP ARTHROSCOPY KNEE W/ FB REMOVAL Right 06/16/2020 Laterality: Right; Surgeon: Abhishek Ames MD; Location: [facility] PERIOP ARTHROSCOPY KNEE W/ MENISCUS REPAIR Right 11/05/2019 Laterality: Right; Surgeon: Abhishek Ames MD; Location: [facility] PERIOP ARTHROSCOPY KNEE W/ CHONDROPLASTY/ABRASION ARTHROPLASTY Right 11/05/2019 Laterality: Right; Surgeon: Abhishek Ames MD; Location: [facility] PERIOP ARTHROSCOPY KNEE W/ MENISCECTOMY Right 06/20/2018 Laterality: Right; Surgeon: Lopez Bender MD; Location: [facility] OR KNEE SURGERY Right 2017 TRIMMED BONE AND LIGAMENTS MOVED ARM SURGERY Right 2010 ORIF APPENDECTOMY TONSILLECTOMY FAMILY HISTORY: No family history on file. SOCIAL/EXPOSURE HISTORY: Social History Socioeconomic History Marital status: Single Tobacco Use Smoking status: Never Smoker Smokeless tobacco: Never Used Vaping Use Vaping Use: Never used Substance and Sexual Activity Alcohol use: Never Drug use: Never Sexual activity: Not Currently ALLERGIES: No Known Allergies MEDICATIONS reviewed: Medication: Current Outpatient Medications Medication Sig aspirin 325 MG tablet Take 1 tablet by mouth daily. docusate 100 MG capsule Take 1 capsule by mouth 2 times daily. promethazine 25 MG tablet Take 1 tablet by mouth every 6 hours as needed for Nausea / Vomiting. oxyCODONE 5 MG tablet Take 1-2 by mouth every 4-6 hours as needed for pain. PHYSICAL EXAM: Vitals: BP 120/70 (BP Location: Left arm, BP Position: Sitting) Pulse 88 Temp 98.8 F (37.1 C) (Infrared) Ht 1.626 m (5' 4 ) Wt 74.7 kg (164 lb 9.6 oz) SpO2 99% BMI 28.25 kg/m Smoking Status Never Smoker Gen: No Acute Distress, Alert and appropriate HEENT: Pupils equal, normal sclera and conjunctiva, O/P clear, MMM Lungs: Breathing comfortably on room air Abd: soft, NT, ND Ext: R knee with well healed scars including along lateral knee. Lower incision with small scabbed area. Good ROM of knee without warmth or erythema. Mild swelling Skin: No rashes Neuro: Alert and appropriate, No focal neuro deficits Psych: Normal affect LABS: Microbiology: 08/22 operative cultures x 3 (R knee wound swab, R leg wound #1 and #2) - MSSA Radiology: 10/01/20 MRI R knee: 1. Status post interval partial meniscectomy of the lateral meniscus. Anterior horn and body of the lateral meniscus are diminutive with persistent small complex tear in the body of the lateral meniscus. 2. No significant interval change of the obliquely oriented tear of the posterior horn of the medial meniscus with associated parameniscal cyst. 3. Mild lateral compartment degenerative changes. ASSESSMENT: Mainor Martini is a 21 y.o. female with h/o multiple R knee surgeries including recent R knee osteotomy and meniscal transplant in Dec 2020 complicated by wound dehiscance and underwent I&D on 08/22/21 with MSSA wound infection. 1. Recent R knee surgical wound infection secondary to MSSA - She underwent I&D on 08/22 with operative cultures all growing MSSA. Based on review of the operative note, the infection appeared to be superficial without evidence of deep involvement. She completed 8 days of treatment with clinda with improvement of her symptoms. She currently does not have signs or symptoms of active infection but remains at increased risk for infection with future surgeries given her multiple prior surgeries and prior infection 2. Multiple R knee surgeries including recent R knee osteotomy and meniscal transplant 3. Remote h/o MRSA skin infections as a child 4. GI upset secondary to clinda RECOMMENDATIONS: - No evidence of active infection at this time Would not recommend additional antibiotics. - Consider repeat MRI of R knee for further evaluation given her continued pain. Will discuss with Dr. Ames - Discussed strategies to reduce risk of infection with future surgeries including screen for MSSAMRSA and if positive, completing decolonization with mupirocin and CHG bathing Follow-up as a video visit in 2-3 months Nicole Cope MD Infectious Diseases, Pager #[phone] documented in this encounter [facility] 09-01-2021 Instructions Jim Feliciano PA-C - 09/01/2021 3:06 PM EDT Moderate Growth Staphylococcus aureus Abnormal documented in this encounter [facility] 09-01-2021 History of Presen t illness Narrative Chief Complaint Patient presents with Right Knee - Post Op Visit 10d s/p Right knee I and D and wound closure. (DOS: 08/22/21). Knee is getting better. Minimal pain. Some discomfort at night. No drainage from the incision. PROCEDURES right knee I and D of wound - Right on 08/22/2021 CURRENT CONDITION Mainor is seen for postoperative follow up now 10 day(s) postop. Formal physical therapy is in progress. Narcotic pain medication is being used. Anticoagulation medication is being used. Current problems or concerns: doing well but is concerned about her lab results, she is positive Staph. She is on oral abx that we put her on post op. She denies fever or chills. Incision has healed well. She denies any fevers, chills, night sweats, nausea, vomiting. She denies excessive numbness, tingling, calf pain, chest pain, shortness of breath. She denies erythema, warmth, excessive drainage from the surgical site. PHYSICAL EXAM Pleasant Wt Readings from Last 1 Encounters: 08/22/21 72.6 kg (160 lb) Ht Readings from Last 1 Encounters: 08/22/21 1.626 m (5' 4 ) 21 y.o. female in no acute distress. Alert and oriented x 3. GAIT: full weight bearing as tolerated Right Lower Extremity: Sutures were removed and steri-strips applied. The incisions are benign--clean, dry, and intact with no erythema, warmth, purulent drainage, or other signs of infection. 2+ distal pulses and sensation intact. Postsurgical abnormal contour is present. Knee effusion: trace Range Of Motion: 0-130 Quad Tone: fair Calf Tenderness: No Xrays obtained and reviewed in the office today: No. CONTRALATERAL EXAM Left Knee Exam: No skin lesions, erythema, or warmth. No joint effusion. No joint line tenderness. Negative Lior. Ligaments stable. Quad tone good. ROM 0-140 LABS: Moderate Growth Staphylococcus aureus Abnormal ASSESSMENT 10 days status post: right knee I and D of wound - Right PLAN -Procedure Review: The and surgical procedures were reviewed in detail. All questions were answered. -Wound Care: We cautioned on the signs/symptoms of infection to be aware of. Instructed patient to allow steri-strips to fall off on their own. Instructed the patient on no bathing, hot tubs, or water immersion. -DVT Prophylaxis: We cautioned on signs/symptoms of DVT, and gave instructions to continue wearing EDISON hose for one more week. -Pain Management: We advised use of pain medication as needed. We stressed the importance of no alcohol, Tylenol products, or other pain medications while on prescribed pain medication. -Physical Therapy: We stressed the importance of continuing home exercises and formal PT in accordance with her current protocol. -Swelling Control: We stressed the importance of swelling control with RICE treatment as needed. -referral placed for ID, specifically Dr Bailey or whomever has the first available. -Follow Up: Return for follow up as scheduled with ISO test -CPM - No -Imaging needed at next visit - No. documented in this encounter [facility] 08-22-2021 Note Formatting of this n ote might be different from the original. Written Discharge and Prescriptions given and explained to patient and mom. Verbalizes understanding of instructions. Reviewed teaching sheets for medications. Pt dressed and ready for discharge. Belongings packed and returned to patient. Discharged to home. [facility] 08-22-2021 Miscellaneous Notes Written Discharge and Prescriptions given and explained to patient and mom. Verbalizes understanding of instructions. Reviewed teaching sheets for medications. Pt dressed and ready for discharge. Belongings packed and returned to patient. Discharged to home. documented in this encounter [facility] 08-22-2021 Nurse Surgical operation note SBAR handoff given to TANK FARM OPERATORRIKA Beck [facility] 08-22-2021 Nurse Note SBAR handoff given to TANK FARM OPERATORRIKA Beck ISBAR handoff procedure completed with Demi surgery RN. Patient stable, no distress, transferred to surgery with OR personnel. documented in this encounter [facility] 08-22-2021 Nurse Surgical operation note ISBAR handoff procedure completed with Demi sorto RN. Patient stable, no distress, transferred to surgery with OR personnel. [facility] 08-22-2021 Hospital Discharg e instructions Masood Mahan MD - 08/22/2021 6:49 AM EDT Home Care After Ambulatory Surgery The following instructions will help you care for yourself, or be cared for upon your return home today. These are guidelines for your care right after surgery only. Diet: Drink plenty of liquids and eat light meals today. Start your regular diet tomorrow or as tolerated. Anesthesia Precautions & Expectations: After anesthesia, rest for [address], drink alcoholic beverages or make any important decisions during this time. General anesthesia may cause a sore throat, jaw discomfort or muscle aches. These symptoms can last for one or two days. What to Expect after surgery: Minimal drainage from the incision. Mild to moderate discomfort and tenderness. Call your Doctor for: Pain not relieved with medicines. Increased amounts of redness, swelling, or any drainage (pus) from the incision. Temperature above 101 degrees. Nausea and vomiting not resolved in 24 hours. YOUR POSTOPERATIVE APPOINTMENT Call your Surgeon's office to make a follow up appointment if you do not have one already scheduled. POLARCARE DEVICE 20 minutes on, 1 hour off, 4-6 sessions per day. Do not apply directly to skin to avoid frostbite WEIGHT BEARING STATUS WEIGHT BEARING STATUS: Full weight bearing- wean off of crutches when Physical Therapist determines adequate quad function and no limp BRACE STATUS BRACE STATUS: Hinge knee brace- NO CPM MACHINE CPM MACHINE: No BLOOD CLOT PREVENTION Eliquis 2.5 mg twice daily for 2-6 weeks OR Aspirin 325 mg once daily for 6-12 weeks WOUND CARE Keep dressings on for 3 days after surgery. You may then remove and apply bandages over incisions. Some bleeding after surgery is normal--do not be alarmed if some soaks through dressings. To avoid infection keep your incisions clean and dry. After the third day you may shower if you cover the incisions with some type of protection (like a plastic bag or saran wrap). No bathing, hot tubs, or water immersion until sutures are removed and scabs have fully healed. Do not remove your sutures--they will be removed in the clinic at the appropriate time. PAIN MANAGEMENT You will receive a prescription for pain medication the day of surgery--take as directed. Common side effects are nausea, drowsiness, and constipation. Consider taking the medication with food. Try an [id number] laxative for constipation if necessary. Do not operate a motor vehicle or heavy machinery while on narcotic pain medication. When taking you pain medication do not consume alcohol or take any other narcotic pain medications or sedatives You should take Tylenol (1000mg every 6 hours) and ibuprofen (400 mg every 6 hours with food) to minimize that amount of oxycodone you need to take PHYSICAL THERAPY If you were given home exercises to do, begin these 24 hours after surgery. If indicated, you may receive a prescription for physical therapy. Therapy appointments are usually set up prior to surgery. If you do not have a physical therapy appointment scheduled, please call the office to get your appointment scheduled. Therapy usually begins 3-5 days after surgery. If you are not doing PT at an [facility] facility, please have your therapist contact our PT department ([phone]) for a protocol. A knee arthroscopy does not require a protocol. Stiffness and discomfort are common after surgery. Try to continue your exercises as they are important for recovery and may help your symptoms. EDISON HOSE If indicated, you may receive EDISON hose stockings the day of surgery. These are used to improve circulation and to help prevent blood clots. If this applies to you, you will begin wearing one stocking on you non-operative leg in the pre-op area. Add the other stocking to your operative leg after you have removed the dressing on the third day after surgery. Wear at all times except when bathing. Take care that they are worn smoothly and are not bunching up behind your knee or thigh. They can be laundered in cold water with mild detergent, 15-20 minutes on low heat or air dry. These will typically be worn for 2 weeks following surgery. OTHER IMPORTANT INSTRUCTIONS Avoid placing a pillow under your knee for extended periods of time, especially for sleeping at night--it will make getting your full extension back very difficult and more painful. You may prop something under your ankle to help with extension. Use your crutches as directed paying close attention to your prescribed weight bearing status. Try to keep your leg elevated and ice consistently--this will help some with pain and swelling. Avoid long periods of sitting, bed rest, or travel for the first two weeks after surgery as this can contribute to developing blood clots. Do not drive until cleared by your physician. The effects of anesthesia may linger after your surgery and can cause drowsiness, nausea, and vomiting. Do not make important decisions within the next 24 hours. EMERGENCY CARE Contact your Surgeon's office if you experience any of the following: Calf pain, chest pain, or shortness of breath Fever over 101 degrees (low-grade fever after surgery is not uncommon) Spreading redness, excessive pus-like or bloody drainage from incisions Painful swelling or numbness Unrelenting pain Excessive nausea or vomting For after-hours emergencies--call the main office number at [phone] or [phone] to contact the on-call orthopedic physician. If you experience a life-threatening emergency, go to the nearest emergency room as soon as possible. Knee Team Surgeon contact info: Dr Abhishek Ames Office# [phone] documented in this encounter [facility] 08-18-2021 Telephone encounter Note Patient of Dr. Ames called in to check the status of getting approved for sx Please advise [facility] 08-18-2021 Miscellaneous Notes Patient of Dr. Ames called in to check the status of getting approved for sx Please advise Advised pt she will need to send in her insurance card to begin the authorization for surgery. The patient currently has MMO in her chart as her insurance. She is scheduled for surgery on 08-22-21. She is calling in today because she no longer has this insurance and now she has [employer]. She is would like to know if everything needs to have AIUTH before her surgery with the new insurance? I did not her MMO at the time of the call. I wanted her to speak with the office first. Please advise documented in this encounter [facility] 08-16-2021 Telephone encounter Note Advised pt she will need to send in her insurance card to begin the authorization for surgery. [facility] 08-16-2021 Telephone encounter Note The patient currently has MMO in her chart as her insurance. She is scheduled for surgery on 08-22-21. She is calling in today because she no longer has this insurance and now she has [employer]. She is would like to know if everything needs to have AIUTH before her surgery with the new insurance? I did not her MMO at the time of the call. I wanted her to speak with the office first. Please advise [facility] 08-11-2021 History and physical note This is the pre-operative assessment for Mainor WADSWORTH Chief Complaint Patient presents with Right Knee - Condition Update ~5m s/p R knee wound revision closure, synovectomy of multiple compartments knee (DOS 03/14/21). ~7m s/p R distal femur supracondylar osteotomy with internal fixation, R knee lateral meniscus allograft transplant (DOS 01/24/21). Wound check. Reports drop BP for two days. Today 148/87 in office. States yellow drainage from R knee lateral incision. States lateral knee pain. Completing PT x1 per week, and HEP. Finished recent antibiotics. 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 Exercise tolerance finding METS > 4 Pain TODAY RIGHT KNEE PAIN IS A 6 Wears glasses WEARS OCCASIONALLY SXH: Past Surgical History: Procedure Laterality Date CLOSURE WOUND DEHISCENCE Right 03/14/2021 Laterality: Right; Surgeon: Elder Christianson MD; Location: [facility] OR ARTHROSCOPY KNEE W/ SYNOVECTOMY Right 03/14/2021 Laterality: Right; Surgeon: Elder Christianson MD; Location: [facility] OR ARTHROSCOPY KNEE W/ CHONDROPLASTY/ABRASION ARTHROPLASTY Right 01/24/2021 Laterality: Right; Surgeon: Abhishek Ames MD; Location: [facility] MA[facility] OR OSTEOTOMY FEMUR SHAFT OR SUPRACONDYLAR W/ FIXATION Right 01/24/2021 Laterality: Right; Surgeon: Abhishek Ames MD; Location: [facility] OR ARTHROSCOPY KNEE W/ TRANSPLANT MENISCUS LATERAL Right 01/24/2021 Laterality: Right; Surgeon: Abhishek Ames MD; Location: [facility] OR ARTHROSCOPY KNEE W/ FB REMOVAL Right 11/17/2020 Laterality: Right; Surgeon: Abhishek Ames MD; Location: [facility] PERIOP ARTHROSCOPY KNEE W/ MENISCECTOMY Right 11/17/2020 Laterality: Right; Surgeon: Abhishek Ames MD; Location: [facility] PERIOP ARTHROSCOPY KNEE W/ MENISCUS REPAIR Right 06/16/2020 Laterality: Right; Surgeon: Abhishek Ames MD; Location: [facility]IOP ARTHROSCOPY KNEE W/ MENISCECTOMY Right 06/16/2020 Laterality: Right; Surgeon: Abhishek Ames MD; Location: [facility] PERIOP ARTHROSCOPY KNEE W/ FB REMOVAL Right 06/16/2020 Laterality: Right; Surgeon: Abhishek Ames MD; Location: [facility] ARTHROSCOPY KNEE W/ MENISCUS REPAIR Right 11/05/2019 Laterality: Right; Surgeon: Abhishek Ames MD; Location: [facility] ARTHROSCOPY KNEE W/ CHONDROPLASTY/ABRASION ARTHROPLASTY Right 11/05/2019 Laterality: Right; Surgeon: Abhishek Ames MD; Location: [facility] ARTHROSCOPY KNEE W/ MENISCECTOMY Right 06/20/2018 Laterality: Right; Surgeon: Lopez Bender MD; Location: [facility] KNEE SURGERY Right 2017 TRIMMED BONE AND LIGAMENTS MOVED ARM SURGERY Right 2010 ORIF APPENDECTOMY TONSILLECTOMY SH: Social History Tobacco Use Smoking status: Never Smoker Smokeless tobacco: Never Used Vaping Use Vaping Use: Never used Substance Use Topics Alcohol use: Never Drug use: Never Med: Outpatient Medications Prior to Visit Medication Sig Dispense Refill acetaminophen 325 MG tablet Take 2 tablets by mouth every 6 hours as needed for Mild Pain. (Patient not taking: Reported on 03/09/2021) cyclobenzaprine 5 MG tablet Take 1 tablet by mouth 3 times daily as needed for Muscle spasms for up to 7 days. 14 tablet 0 docusate 100 MG capsule Take 1 capsule by mouth 2 times daily. (Patient not taking: Reported on 03/09/2021) 20 capsule 0 oxyCODONE 10 MG tablet Take 1 tablet by mouth every 4 hours as needed for Severe Pain for up to 4 days. 24 tablet 0 No facility-administered medications prior to visit. Allergies: No Known Allergies Review of Systems ROS is noncontributory with no significant history of heart, lung, vascular, renal or liver disease. No history of diabetes, epilepsy, bleeding disorders or other systematic disease. Prior adverse reaction to anesthesia no Physical Exam BP 148/87 (BP Location: Left arm, BP Position: Sitting) Ht 1.626 m (5' 4 ) Wt 72.6 kg (160 lb) BMI 27.46 kg/m Smoking Status Never Smoker Cardiac exam shows regular rate and rhythm, S1 and S2 sounds normal with no significant murmur yes Lungs with non-labored respirations and breath sounds are clear and equal yes Musculoskeletal pertinent findings include: Distal wound breakdown/dehiscence Diagnosis ICD-10-CM 1. Wound dehiscence T81.30XA CASE REQUEST - SURGERY CASE REQUEST - SURGERY Plan right knee debridement open wound [facility] 08-11-2021 History and physical note This is the pre-operative assessment for Mainor WADSWORTH Chief Complaint Patient presents with Right Knee - Condition Update ~5m s/p R knee wound revision closure, synovectomy of multiple compartments knee (DOS 03/14/21). ~7m s/p R distal femur supracondylar osteotomy with internal fixation, R knee lateral meniscus allograft transplant (DOS 01/24/21). Wound check. Reports drop BP for two days. Today 148/87 in office. States yellow drainage from R knee lateral incision. States lateral knee pain. Completing PT x1 per week, and HEP. Finished recent antibiotics. 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 Exercise tolerance finding METS > 4 Pain TODAY RIGHT KNEE PAIN IS A 6 Wears glasses WEARS OCCASIONALLY SXH: Past Surgical History: Procedure Laterality Date CLOSURE WOUND DEHISCENCE Right 03/14/2021 Laterality: Right; Surgeon: Elder Christianson MD; Location: [facility] OR ARTHROSCOPY KNEE W/ SYNOVECTOMY Right 03/14/2021 Laterality: Right; Surgeon: Elder Christianson MD; Location: [facility] OR ARTHROSCOPY KNEE W/ CHONDROPLASTY/ABRASION ARTHROPLASTY Right 01/24/2021 Laterality: Right; Surgeon: Abhishek Ames MD; Location: [facility] OR OSTEOTOMY FEMUR SHAFT OR SUPRACONDYLAR W/ FIXATION Right 01/24/2021 Laterality: Right; Surgeon: Abhishek Ames MD; Location: [facility] OR ARTHROSCOPY KNEE W/ TRANSPLANT MENISCUS LATERAL Right 01/24/2021 Laterality: Right; Surgeon: Abhishek Ames MD; Location: [facility] OR ARTHROSCOPY KNEE W/ FB REMOVAL Right 11/17/2020 Laterality: Right; Surgeon: Abhishek Ames MD; Location: [facility] ARTHROSCOPY KNEE W/ MENISCECTOMY Right 11/17/2020 Laterality: Right; Surgeon: Abhishek Ames MD; Location: [facility] ARTHROSCOPY KNEE W/ MENISCUS REPAIR Right 06/16/2020 Laterality: Right; Surgeon: Abhishek Ames MD; Location: [facility] ARTHROSCOPY KNEE W/ MENISCECTOMY Right 06/16/2020 Laterality: Right; Surgeon: Abhishek Ames MD; Location: [facility] ARTHROSCOPY KNEE W/ FB REMOVAL Right 06/16/2020 Laterality: Right; Surgeon: Abhishek Ames MD; Location: [facility] ARTHROSCOPY KNEE W/ MENISCUS REPAIR Right 11/05/2019 Laterality: Right; Surgeon: Abhishek Ames MD; Location: [facility] ARTHROSCOPY KNEE W/ CHONDROPLASTY/ABRASION ARTHROPLASTY Right 11/05/2019 Laterality: Right; Surgeon: Abhishek Ames MD; Location: [facility] ARTHROSCOPY KNEE W/ MENISCECTOMY Right 06/20/2018 Laterality: Right; Surgeon: Lopez Bender MD; Location: [facility] KNEE SURGERY Right 2018 TRIMMED BONE AND LIGAMENTS MOVED ARM SURGERY Right 2010 ORIF APPENDECTOMY TONSILLECTOMY SH: Social History Tobacco Use Smoking status: Never Smoker Smokeless tobacco: Never Used Vaping Use Vaping Use: Never used Substance Use Topics Alcohol use: Never Drug use: Never Med: Outpatient Medications Prior to Visit Medication Sig Dispense Refill acetaminophen 325 MG tablet Take 2 tablets by mouth every 6 hours as needed for Mild Pain. (Patient not taking: Reported on 03/09/2021) cyclobenzaprine 5 MG tablet Take 1 tablet by mouth 3 times daily as needed for Muscle spasms for up to 7 days. 14 tablet 0 docusate 100 MG capsule Take 1 capsule by mouth 2 times daily. (Patient not taking: Reported on 03/09/2021) 20 capsule 0 oxyCODONE 10 MG tablet Take 1 tablet by mouth every 4 hours as needed for Severe Pain for up to 4 days. 24 tablet 0 No facility-administered medications prior to visit. Allergies: No Known Allergies Review of Systems ROS is noncontributory with no significant history of heart, lung, vascular, renal or liver disease. No history of diabetes, epilepsy, bleeding disorders or other systematic disease. Prior adverse reaction to anesthesia no Physical Exam BP 148/87 (BP Location: Left arm, BP Position: Sitting) Ht 1.626 m (5' 4 ) Wt 72.6 kg (160 lb) BMI 27.46 kg/m Smoking Status Never Smoker Cardiac exam shows regular rate and rhythm, S1 and S2 sounds normal with no significant murmur yes Lungs with non-labored respirations and breath sounds are clear and equal yes Musculoskeletal pertinent findings include: Distal wound breakdown/dehiscence Diagnosis ICD-10-CM 1. Wound dehiscence T81.30XA CASE REQUEST - SURGERY CASE REQUEST - SURGERY Plan right knee debridement open wound documented in this encounter [facility] 08-11-2021 History of Presen t illness Narrative Sports Medicine Clinic Post-op Note Chief Complaint: Chief Complaint Patient presents with Right Knee - Condition Update ~5m s/p R knee wound revision closure, synovectomy of multiple compartments knee (DOS 03/14/21). ~7m s/p R distal femur supracondylar osteotomy with internal fixation, R knee lateral meniscus allograft transplant (DOS 01/24/21). Wound check. Reports drop BP for two days. Today 148/87 in office. States yellow drainage from R knee lateral incision. States lateral knee pain. Completing PT x1 per week, and HEP. Finished recent antibiotics. HISTORY OF PRESENT ILLNESS: Mainor Martini is a 21 y.o. female, who presents to clinic 5 mo s/p R knee wound revision closure synovectomy And 7 months s/p R DFO and LMAT. She reports some drainage from her distal incision area from two small open areas. This has been going on for one month. She just finished a two week course of antibiotics. She is in PT 1x/week. Reports some lateral pain. Physical Exam: BP 148/87 (BP Location: Left arm, BP Position: Sitting) Ht 1.626 m (5' 4 ) Wt 72.6 kg (160 lb) BMI 27.46 kg/m Smoking Status Never Smoker Body mass index is 27.46 kg/m . General appearance: Alert and cooperative, appears stated age Constitutional: Well-developed, well-nourished, and in no distress. Pulmonary/Chest: Effort normal. Neurological: Alert and oriented to person, place, and time. RLE: Incisions healed, except distally two small poke hole areas, no significant drainage currently No erythema or induration No medial/lateral joint line tenderness No instability with varus or valgus stress Negative Terell Negative anterior drawer Negative posterior drawer Motor intact to DF/PF Neurovascularly intact. REVIEW OF IMAGING No new imaging today Assessment and Plan: This is a pleasant 21 y.o. female who is 5 mo s/p Right knee wound revision and closure and right knee arthroscopy And 7 months s/p RLE distal femur supracondylar osteotomy with internal fixation and right knee lateral meniscus allograft transplant With continued small wound breakdown and dehiscence PLAN -we discussed everything with Mainor and her mom today -her osteotomy site is well healed based on her prior xrays -there are no signs of overt infection but she does have some continued wound breakdown -Plan for right knee debridement open wound The risks and benefits of the procedure were fully explained, including but not limited to infection, neurovascular injury, continued pain, arthritis, stiffness, need for further surgery, re-injury re-tear, DVT, PE, and loss of limb or life. The patient understands all the risks and does wish to proceed. We will try to do this in a timely fashion. Masood Mahan MD Orthopaedic Surgery Sports Medicine Fellow Patient was seen and evaluated with the Sports Medicine Fellow/Resident at today's visit. I performed all essential elements of the history and physical exam at today's visit. I have confirmed the diagnosis at today's visit. I have determined the plan of care for today's visit. Please refer to the fellow/resident's note for further details from today's visit. I have reviewed the note following the visit have added edits as appropriate to my evaluation and plan of care. The diagnoses for today's visit include: ICD-10-CM 1. Wound dehiscence T81.30XA CASE REQUEST - SURGERY CASE REQUEST - SURGERY She still has a small area of wound dehiscence that is not heal by secondary intention. In fact we see some puckering of the skin at this point. I can not express what seems to be just a stitch abscess but nothing else. There is no redness or erythema or warmth around it. She has tried everything over the last month but this is still not fully healed. For that reason I do think we should just make a small incision I and D this area and close it with monofilament. She is in agreement with this plan. We will plan to do this in the near future documented in this encounter [facility] 08-08-2021 Telephone encounter Note I spoke with Mainor, she states that her incision is still having some drainage and she is having some pain around her hardware. She would like to come in for a wound check. She denies fever, chills. She finished her antibiotic. She will upload some pictures to her [facility] for us to see. She was pleased with the call and we will see her in the clinic on before her PT appointment. [facility] 08-08-2021 Miscellaneous Notes I spoke with Mainor, she states that her incision is still having some drainage and she is having some pain around her hardware. She would like to come in for a wound check. She denies fever, chills. She finished her antibiotic. She will upload some pictures to her MyChart for us to see. She was pleased with the call and we will see her in the clinic on before her PT appointment. Spoke with patient again and confirmed no new fever, chills, nausea, vomiting, redness. Patient states that it has always been tender. Informed her that she has two options over the weekend. 1. Is to keep it covered and to change this when needed. 2. Go to the ED to be seen. Also discussed if any other infection signs or symptoms arise over the weekend to go to the ED. Patient wanted to start with the first option and then was scheduled for Sunday at 8:00 am with Emigdio Cerda PA-C - as this was okay'd by Emigdio. Patient accepted this appointment slot. Patient agreed to the plan and expressed appreciation for the follow up phone call and information. Called and spoke with Mainor. She is c/o drainage from her incision for the past 2 weeks. She completed the abx on Sunday. She has not noticed a difference since she completed the abx. Denies fever, redness, or any warmth around the incision. Patient stated she will send pictures later today. Consulted with Jim Feliciano PA-C and let her know what was going on. Attempted to call patient back but had to leave a voicemail letting her know if she is feeling worse, has any fever, chills, redness, or warmth to the area to go to the ED to be further evaluated. Also asked if she could send a picture first thing Sunday and let us know how she is doing then. Attempted to contact pt. Pt answered but the phone was disconnected after she answered. Unable to discuss the concern. I did call back and left a message. Encouraged to go to the ED if concerns for infection. Spoke with patient in which she states that she has finished the keflex that she was placed on last week. Patient states that she still has the infection with fluid draining out of the two holes. Patient reports that she does not want to have to have the incision opened again and washed out. Patient reports that she is driving and could not send images. Pt called stating that she has another infection and she is done with her antibiotics. Please call pt and advise. She would also like to speak with Ashlyn regarding this as well. # [phone] documented in this encounter [facility] 08-05-2021 Telephone encounter Note Spoke with patient again and confirmed no new fever, chills, nausea, vomiting, redness. Patient states that it has always been tender. Informed her that she has two options over the weekend. 1. Is to keep it covered and to change this when needed. 2. Go to the ED to be seen. Also discussed if any other infection signs or symptoms arise over the weekend to go to the ED. Patient wanted to start with the first option and then was scheduled for Sunday at 8:00 am with Emigdio Rene as this was okay'd by Emigdio. Patient accepted this appointment slot. Patient agreed to the plan and expressed appreciation for the follow up phone call and information. [facility] 08-05-2021 Telephone encounter Note Called and spoke with Mainor. She is c/o drainage from her incision for the past 2 weeks. She completed the abx on Sunday. She has not noticed a difference since she completed the abx. Denies fever, redness, or any warmth around the incision. Patient stated she will send pictures later today. Consulted with Jim Feliciano PA-C and let her know what was going on. Attempted to call patient back but had to leave a voicemail letting her know if she is feeling worse, has any fever, chills, redness, or warmth to the area to go to the ED to be further evaluated. Also asked if she could send a picture first thing Sunday and let us know how she is doing then. [facility] 08-05-2021 Telephone encounter Note Attempted to contact pt. Pt answered but the phone was disconnected after she answered. Unable to discuss the concern. I did call back and left a message. Encouraged to go to the ED if concerns for infection. [facility] 08-05-2021 Telephone encounter Note Spoke with patient in which she states that she has finished the keflex that she was placed on last week. Patient states that she still has the infection with fluid draining out of the two holes. Patient reports that she does not want to have to have the incision opened again and washed out. Patient reports that she is driving and could not send images. [facility] 08-05-2021 Telephone encounter Note Pt called stating that she has another infection and she is done with her antibiotics. Please call pt and advise. She would also like to speak with Ashlyn regarding this as well. PH# [phone] [facility] 11-17-2020 Miscellaneous Notes Mainor's home instructions/ after visit summary were reviewed with caregiver/ family. All questions were answered. No concerns identified. Education on all new post op medications completed. Home cooling unit use and care reviewed. Script for PT in pateint folder. Mainor Harmon Kari ([id number]) PRE OPERATIVE DIAGNOSIS Unspecified internal derangement of knee [M23.90] Internal derangement of multiple sites of right knee [M23.91] POST OPERATIVE DIAGNOSIS Post-Op Diagnosis Codes: * Unspecified internal derangement of knee [M23.90] * Internal derangement of multiple sites of right knee [M23.91] * Acute lateral meniscus tear of right knee, initial encounter [S83.281A] * Loose body in knee, right knee [M23.41] PROCEDURE PERFORMED Procedure(s) (LRB): ARTHROSCOPY KNEE W/ FB REMOVAL (Right) ARTHROSCOPY KNEE W/ MENISCECTOMY (Right) PRIMARY CLOSURE Yes INTRAOPERATIVE FINDINGS No significant abnormalities SURGEON Surgeon(s) and Role: * Abhishek Ames MD - Primary ANESTHESIOLOGIST Anesthesiologist: Philip Smith MD PRECISE WINDER: Jammie Livingston APRN-PRECISE WINDER SURGICAL STAFF Ethernet Network Architect: Mitra Lipscomb RN Scrub Person: Demetrio Paul Resident Assisting: Curtis Eid MD COMPLICATIONS None ESTIMATED BLOOD LOSS Minimal SPECIMENS No specimen sent * No specimens in log * Abhishek Ames MD November 17, 2020 10:12 AM documented in this [facility] Hospital Discharg e Curtis Crain MD - 11/15/2020 Home Care After Ambulatory Surgery The following instructions will help you care for yourself, or be cared for upon your return home today. These are guidelines for your care right after surgery only. Diet: Drink plenty of liquids and eat light meals today. Start your regular diet tomorrow or as tolerated. Anesthesia Precautions & Expectations: After anesthesia, rest for [address], drink alcoholic beverages or make any important decisions during this time. General anesthesia may cause a sore throat, jaw discomfort or muscle aches. These symptoms can last for one or two days. What to Expect after surgery: Minimal drainage from the incision. Mild to moderate discomfort and tenderness. Call your Doctor for: Pain not relieved with medicines. Increased amounts of redness, swelling, or any drainage (pus) from the incision. Temperature above 101 degrees. Nausea and vomiting not resolved in 24 hours. YOUR POSTOPERATIVE APPOINTMENT Call your Surgeon's office to make a follow up appointment if you do not have one already scheduled. POLARCARE DEVICE 20 minutes on, 1 hour off, 4-6 sessions per day. Do not apply directly to skin to avoid frostbite WEIGHT BEARING STATUS WEIGHT BEARING STATUS: Full weight bearing - wean off of crutches when you are comfortable to do so BRACE STATUS BRACE STATUS: Hinge knee brace- NO CPM MACHINE CPM MACHINE: No BLOOD CLOT PREVENTION Aspirin 325 mg once daily for 6-12 weeks WOUND CARE Keep dressings on for 3 days after surgery. You may then remove and apply bandages over incisions. Some bleeding after surgery is normal do not be alarmed if some soaks through dressings. To avoid infection keep your incisions clean and dry. After the third day you may shower if you cover the incisions with some type of protection (like a plastic bag or saran wrap). No bathing, hot tubs, or water immersion until sutures are removed and scabs have fully healed. Do not remove your sutures they will be removed in the clinic at the appropriate time. PAIN MANAGEMENT You will receive a prescription for pain medication the day of surgery take as directed. Common side effects are nausea, drowsiness, and constipation. Consider taking the medication with food. Try an [id number] laxative for constipation if necessary. Do not operate a motor vehicle or heavy machinery while on narcotic pain medication. When taking you pain medication do not consume alcohol or take any other narcotic pain medications or sedatives You should take Tylenol (1000mg every 6 hours) and ibuprofen (400 mg every 6 hours with food) to minimize that amount of oxycodone you need to take PHYSICAL THERAPY If you were given home exercises to do, begin these 24 hours after surgery. If indicated, you may receive a prescription for physical therapy. Therapy appointments are usually set up prior to surgery. If you do not have a physical therapy appointment scheduled, please call the office to get your appointment scheduled. Therapy usually begins 3-5 days after surgery. If you are not doing PT at an [facility] facility, please have your therapist contact our PT department ([phone]) for a protocol. A knee arthroscopy does not require a protocol. Stiffness and discomfort are common after surgery. Try to continue your exercises as they are important for recovery and may help your symptoms. EDISON HOSE If indicated, you may receive EDISON hose stockings the day of surgery. These are used to improve circulation and to help prevent blood clots. If this applies to you, you will begin wearing one stocking on you non-operative leg in the pre-op area. Add the other stocking to your operative leg after you have removed the dressing on the third day after surgery. Wear at all times except when bathing. Take care that they are worn smoothly and are not bunching up behind your knee or thigh. They can be laundered in cold water with mild detergent, 15-20 minutes on low heat or air dry. These will typically be worn for 2 weeks following surgery. OTHER IMPORTANT INSTRUCTIONS Avoid placing a pillow under your knee for extended periods of time, especially for sleeping at night it will make getting your full extension back very difficult and more painful. You may prop something under your ankle to help with extension. Use your crutches as directed paying close attention to your prescribed weight bearing status. Try to keep your leg elevated and ice consistently this will help some with pain and swelling. Avoid long periods of sitting, bed rest, or travel for the first two weeks after surgery as this can contribute to developing blood clots. Do not drive until cleared by your physician. The effects of anesthesia may linger after your surgery and can cause drowsiness, nausea, and vomiting. Do not make important decisions within the next 24 hours. EMERGENCY CARE Contact your Surgeon's office if you experience any of the following: o Calf pain, chest pain, or shortness of breath o Fever over 101 degrees (low-grade fever after surgery is not uncommon) o Spreading redness, excessive pus-like or bloody drainage from incisions o Painful swelling or numbness o Unrelenting pain o Excessive nausea or vomting For after-hours emergencies call the main office number at [phone] or [phone] to contact the on-call orthopedic physician. If you experience a life-threatening emergency, go to the nearest emergency room as soon as possible. Knee Team Surgeon contact info: Dr Abhishek Ames Office# [phone] documented in this encounter [facility] 11-13-2020 History of Presen t illness Narrative Does the patient have any of the following symptoms? [] Fever [] Chills [] New onset cough [] New onset shortness of breath or difficulty breathing [] Fatigue [] Muscle or body aches [] Headache [] New loss of taste or smell [] Sore throat [] Congestion or runny nose [] Nausea or vomiting [] Diarrhea [] Confirmed Exposure (informed of close contact of confirmed positive COVID 19 individual or informed by health department of confirmed exposure) [x] Denies symptoms above Specimens collected via anterior nares oropharyngeal and prepared for transport to lab. Patient denies discomfort following collection and instructed that all further questions should be addressed via patients primary care provider or ordering providers office. Results will be released via [employer] within 72 hours . Patient verbalized understanding and denies further questions. documented in this encounter [facility] 11-02-2020 History and physical note Chief Complaint Patient presents with Right Knee - Follow-up R knee. Pt is here for R knee f/u to discuss surgery options. HISTORY OF PRESENT ILLNESS Mainor is a 20 y.o. female. Presents for follow-up of Right knee(s).She is s/p R AKS with MMR, LB removal on 06/16/20. She states that she was doing well after surgery until she fell down some steps about a month after surgery. Since then she has had persistent pain diffusely in her right knee. Mechanism Of Injury: fall [place] or heard a POP : No Immediate effusion: Yes Occurrence was 4 month(s) ago. Onset was persistent, recurrent. Location of pain is anterior, medial and lateral. Character of pain is sharp and stabbing. Aggravating factors include going up and down stairs, standing, walking and rising after sitting. Alleviating factors/treatments include NSAID's, PT and rest. Severity of pain is rated 7/10. Denies any numbness, tingling or radiation of symptoms. Effusion frequency: occasional. Mechanical symptoms: catching and popping. 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 REVIEW OF SYSTEMS Constitutional: Negative for fever and chills. Skin: Negative for rash and skin lesions. HENT: Negative for nosebleeds and sore throat. Eyes: Negative for blurred vision and double vision. Cardiovascular: Negative for chest pain and dyspnea on exertion. Respiratory: Negative for cough. Is not experiencing shortness of breath. Gastrointestinal: Negative for nausea and vomiting. Musculoskeletal: Positive for generalized joint pain. Neurological: Negative for tingling and headaches. Psychiatric: Negative for hallucinations. The patient does not have insomnia. Lymph/Heme: Negative for bruises/bleeds easily and lymph node swelling. Endocrine: Negative for hot flashes and sweats. PHYSICAL EXAM Pleasant 20 y.o. year old female No acute distress. Alert and oriented x 3. Breathing comfortably on RA RRR Antalgic gait: Yes Pain with deep knee bend: Yes Bilateral lower extremities are neurovascularly intact with symmetric light touch sensation and distal pulses. Left Knee Exam: No skin lesions, erythema, or warmth. No joint effusion. No joint line tenderness. Negative Lior. Ligaments stable. Quad tone good. ROM 0-130 Right Knee Exam: No skin lesions, erythema, or warmth. Effusion: 1+ Range Of Motion: 0-120 Hyperextension Pain: Negative Hyperflexion Pain: Positive Lior: Positive Medial Joint Line Tenderness: Positive Lateral Joint Line Tenderness: Positive Anterior Drawer: Negative Posterior Drawer: Negative Terell: Negative Pivot Shift: Negative Valgus Stress: Negative Varus Stress: Negative REVIEW OF IMAGING MRI available for review today: Yes MRI R knee 10/01/20- post surgical changes in medial and lateral meniscus with cartilage changes along lateral femoral condyle ASSESSMENT S/p R AKS MMR with persistent symptoms PLAN -Diagnosis and treatment options discussed in detail today - We had a long discussion about possible treatment options which included continued PT, injections, bracing, and diagnostic arthroscopic knee evaluation with possible partial meniscectomy, possible cartilage biopsy. We did discuss pursuing a lateral meniscal transplant after this plus or minus cartilage work depending on AKS. We discussed the risks and benefits associated with this all questions and concerns were answered prior to proceeding. The risks and benefits of the procedure were fully explained, including but not limited to infection, neurovascular injury, continued pain, arthritis, stiffness, need for further surgery, re-injury re-tear, DVT, PE, and loss of limb or life. The patient understands all the risks and does wish to proceed. We will try to do this in a timely fashion. documented in this encounter [facility] 11-02-2020 History of Presen t illness Narrative Patient was seen and evaluated with the Sports Medicine Fellow/Resident at today's visit. I performed all essential elements of the history and physical exam at today's visit. I have confirmed the diagnosis at today's visit. I have determined the plan of care for today's visit. Please refer to the fellow/resident's note for further details from today's visit. I have reviewed the note following the visit have added edits as appropriate to my evaluation and plan of care. The diagnoses for today's visit include ICD-10-CM 1. Internal derangement of knee, right M23.91 She feels like her fall after surgery definitely did something to her knee. She now feels back to her baseline when she was feeling quite well. Her MRI does show some changes of her medial and lateral meniscus. More concerning is the cartilage damage I see now in the lateral femoral condyle. We had a long discussion as different alternatives including bracing injections arthroscopy and the potential that she is heading down towards the lateral meniscal transplant. She understands all these things and has been dealing with this now for quite some time. Her preference is another diagnostic arthroscopy to see if there is anything going on with the meniscus and look at the cartilage. Due to the longevity of her issues with this she is ready to move on towards a lateral meniscal transplant. We will obtain the measurement films as with repeat alignment today to see if she has been drifting into valgus or not. She understands that she will have a significant salvage procedure at this time point and the 1st step will be the diagnostic arthroscopy to evaluate her cartilage. The risks and benefits of the procedure were fully explained, including but not limited to infection, neurovascular injury, continued pain, arthritis, stiffness, need for further surgery, re-injury re-tear, DVT, PE, and loss of limb or life. The patient understands all the risks and does wish to proceed. We will try to do this in a timely fashion. documented in this encounter [facility] Diagnosis Internal derangement of multiple sites of right knee Pre-op testing Preoperative examination, unspecified Unspecified internal derangement of knee Internal derangement of multiple sites of right knee [facility] Diagnosis Post-op pain- Primary Other acute postoperative pain Internal derangement of multiple sites of right knee [facility] Diagnosis Wound dehiscence- Primary Disruption of external operation (surgical) wound [facility] Diagnosis Internal derangement of multiple sites of right knee- Primary Postoperative wound dehiscence, subsequent encounter [facility] Diagnosis Status post knee surgery- Primary Other postprocedural status [facility] Diagnosis Postoperative wound dehiscence, subsequent encounter- Primary MSSA (methicillin susceptible Staphylococcus aureus) infection Methicillin susceptible Staphylococcus aureus in conditions classified elsewhere and of unspecified site [facility] Diagnosis Status post knee surgery- Primary Other postprocedural status [facility] Diagnosis Injury of right knee, initial encounter [facility] Diagnosis Injury of right knee, initial encounter [facility]* Diagnosis Internal derangement of multiple sites of right knee- Primary documented in this encounter [facility] note* Diagnosis Status post surgery- Primary Status post surgery documented in this encounter [facility] note* Diagnosis Status post surgery [facility] Diagnosis Lower abdominal pain- Primary Abdominal pain, other specified site [facility] Consultation (Routine) - Patient to Arrange Specialty Diagnoses / Procedures Referred By Contac t Referred To Contact Infectious Diseases Diagnoses Status post knee surgery Jmi Feliciano PA-C [address] [place] [address] Referral ID Status Reason Start Date Expiration Date V isits Requested Visits Authorized [id number] Patient to Arrange 09/01/2021 09/26/2022 1 [facility] Consultation (Routine) - Patient to Arrange Specialty Diagnoses / Procedures Referred By Contact Referred To Contact Sports Medicine and Rehabilitation Diagnoses Status post knee surgery Jim Feliciano PA-C [address] [place] [address] Referral ID Status Reason Start Date Expiration Date V isits Requested Visits Authorized [id number] Patient to Arrange 11/04/2021 11/29/2022 1 1 Scheduling Instructions [facility] at [address] Room: [address] [place] [address] [phone] FAX [facility] [place] [address] [facility] [address] [place] [address] FAX [facility] [address] [place] [address] FAX [facility] Outpatient [facility] [place] [address] [facility] [address] [place], [place] [address] FAX Outpatient Rehabilitation Outpatient Care [place] [address] [facility], [address] [place] [address] [phone] FAX [facility] [address] [place] [address] [phone] FAX [facility] [place] [address] [facility], [place] [address] [phone] FAX Continued on next page [facility] [address] [place] [address] [phone] FAX Outpatient Rehabilitation Outpatient Care [address] [place] [address] [phone] FAX [facility] at [address] [address] FAX * Adjunctive Therapy (Routine) - New Request Specialty Diagnoses / Procedures Referred By Keron meneses Referred To Contact Integrative Medicine Diagnoses Status post knee surgery Jim Feliciano PA-C [address] [place] [address] Referral ID Status Reason Start Date Expiration Date V isits Requested Visits Authorized [id number] New Request 11/04/2021 11/29/2022 1 1 * Consultation (Routine) - New Request Specialty Diagnoses / Procedures Referred By Keron meneses Referred To Contact Multispecialty Diagnoses Status post knee surgery Jim Feliciano PA-C [address] [place] [address] Referral ID Status Reason Start Date Expiration Date V isits Requested Visits Authorized [id number] New Request 11/04/2021 11/29/2022 1 1 [facility] Consultation (Routine) - Patient to Arrange Specialty Diagnoses / Procedures Referred By Keron t Referred To Contact Sports Medicine and Rehabilitation Diagnoses Internal derangement of multiple sites of right knee Jim Feliciano, PAC [address] [place] [address] Referral ID Status Reason Start Date Expiration Date V isits Requested Visits Authorized [id number] Patient to Arrange 07/05/2022 07/30/2023 1 1 Scheduling Instructions [facility] at [address] Room: [address] [place] [address] [phone] FAX [facility] [place] [address] [place] [address] FAX [facility] [address] [facility] [address] [place], [place] [address] FAX [facility] [place] [address] [place] [address] FAX [facility] [address] [facility] [place] [address] FAX Outpatient Rehabilitation Outpatient [facility] [place] [address] [facility] [place] [address] FAX [facility] [address] [facility] [address] [place] [address] FAX Continued on next page [facility] [place] [address] [facility] [place] [address] FAX [facility] [address] [place] [address] [phone] FAX Outpatient Rehabilitation Outpatient Care [address] [place] [address] [phone] FAX [facility] at [facility] [address] [place] [address] FAX Outpatient Care [address] [address] FAX [facility] at [facility], [address] [place] [address] FAX * Radiology (Routine) - New Request Specialty Diagnoses / Procedures Referred By Keron meneses Referred To Contact Procedures US IMAGING Demetrio Grimes MD [address] [place] [address] Referral ID Status Reason Start Date Expiration Date V isits Requested Visits Authorized [id number] New Request 07/05/2022 07/30/2023 [facility] N[facility]* Auth/Cert Specialty Diagnoses / Procedures Referred By Keron meneses Referred To Contact Diagnoses Unspecified internal derangement of knee Internal derangement of multiple sites of right knee Unspecified internal derangement of knee [M23.90] Internal derangement of multiple sites of right knee [M23.91] Procedures CT KNEE SCOPE,DIAGNOSTIC ARTHROSCOPY KNEE Referral ID Status Reason Start Date Expiration Date Visits Re quested Visits Authorized [id number] [facility] Auth/Cert Specialty Diagnoses / Procedures Referred By Keron t Referred To Contact Diagnoses Wound dehiscence Wound dehiscence [T81.30XA] Procedures CT ACTIVE WOUND CARE/20 CM OR < DEBRIDEMENT SKIN OPEN WOUND Referral ID Status Reason Start Date Expiration Date Visits Re quested Visits Authorized [id number] 1 1 [facility] Assessments Diagnosis Acute pain of right knee Diagnosis Preop testing- Primary Preoperative examination, unspecified Diagnosis S/P arthroscopy of knee- Primary Other postprocedural status Diagnosis S/P right knee arthroscopy- Primary Other postprocedural status Diagnosis S/P right knee arthroscopy- Primary Other postprocedural status Diagnosis S/P arthroscopy of knee- Primary Other postprocedural status Diagnosis Hamstring tightness- Primary Unspecified disorder of muscle, ligament, and fascia Diagnosis Chronic pain of right knee- Primary Diagnosis Acute pain of right knee- Primary Discoid meniscus of right knee Patellofemoral pain syndrome of right knee Diagnosis Discoid meniscus of right knee- Primary Patellofemoral syndrome, right Pain in joint, lower leg Instructions Name Dates Details Instructions not documented Name Dates Details Instructions not documented History of Present Illness * Alee Rojas RN - 06/05/2018 9:30 AM EST Confirmed procedure and surgery date with patient and father. Discussed post op pain level with patient. Reviewed pre-op instructions and gave written instructions of the same. No additonal testing required today documented in this encounter* Teagan Butcher, TICKET SELLER-CONTINUOUS ABSORPTION PROCESS OPERATOR - 07/05/2018 8:20 AM EDT Chief Complaint Patient presents with Post Op Visit 15 days s/p Right knee arthroscopy, PLM, partial synovectomy, removal of hardware. The knee is feeling good, no problems or concerns at this time. In therapy 2 days a week which is going well. Sutureremoved by nursing. HPI: She presents today status post right knee arthroscopy, PLM, lateral release, removal hardware. States the knee is feeling good. Denies any issues or concerns. She states that she does have occasionalaching pain in her knee is swollen but slowly improving. Currently therapy 2 days week which is going well. She is happy with her progress. PMH: Past medical history, family history, social history, allergies and medications have been reviewed and are documented in the electronic record. ROS: Review of Systems System Neg/Pos Details Constitutional Negative Chills, fatigue, fever and night sweats. ENMT Negative Dysphagia, hearing loss, nasal congestion and vertigo. Eyes Negative Blurred vision and vision loss. Respiratory Negative Chest pain, cough, dyspnea, known TB exposure and wheezing. Cardio Negative Chest pain, cyanosis, heart murmur, irregular heartbeat/palpitations and syncope. GI Negative Abdominal pain, black tarry stools, constipation, diarrhea, heartburn, nausea and vomiting. Negative Dysuria, frequent urination, hematuria, nocturia and urinary incontinence. Endocrine Negative Weight gain and weight loss. Neuro Negative Difficulty walking, headache, paresthesia, poor coordination and seizures. Psych Negative Anxiety, depression and insomnia. Integumentary Negative Frequent skin infections, itching skin, rash and skin lesion. MS Negative Except as noted in HPI and chief complaint and muscle weakness. Esdras/Lymph Negative Bruising and easy bleeding. Allergic/Immuno Negative Contact dermatitis, environmental allergies, food allergies, infections and seasonal allergies. Vitals: 07/05/18 0807 Temp: 98 degrees F (36.7 degrees C) Weight: 59.4 kg (131 lb) Height: 1.664 m (5' 5.5 ) Physical Exam: Exam Findings Details Constitutional Normal No acute distress. Well developed. Head/Face Comments normal cephallic/ Atraumatic, negative spurling's maneuver Head/Face Normal Facial features - Normal. Skull - Normal. Hair and scalp - Normal. Respiratory Normal Cough - Absent. Effort - Normal. Skin * Detailed inspection - Visual lesions: none. Skin Comments other than as noted otherwise below in extremity exam Skin Normal Palpation/texture - Normal. Nails - Normal. Hair - Normal. Psychiatric Normal Orientation - Oriented to time, place, person & situation. Involved Lower Extremity: ROM: 0-90. Quad tone good. Calf supple and non tender. +2 effusion. Incisions healing nicely. No erythema. No drainage. Sutures removed. Steri strips placed. Distally neurovascularly intact with 2+ DP pulse and full sensation in the DP/SP/Tibial nerve distribution. Assessment: No diagnosis found. Plan: She is doing well, continue PT to work on ROM, strengthening, and swelling control. Recess that shedoes have moderate swelling on exam today and she would like to wait to have it drained if possible. We discussed to continue Tae wrap and icing help reduce swelling. We'll have her back in 10 days for repeat evaluation and possible aspiration. She will use NSAIDS as needed for pain control. If Shehas any questions or issues She will contact the office. Follow up in 4 weeks for repeat evaluation. documented in this encounter* Teagan Butcher APRN-CNP - 08/02/2018 10:40 AM EDT Chief Complaint Patient presents with Post Op Visit 6 weeks s/p Right knee arthroscopy, PLM, partial synovectomy, removal of hardware. States her dog ran intro her leg and she is having pain on the lateral side of the knee near her incision line. She states also that when she lays on her knee on the medial side the knee will go numb. In therapy 2 days a week which is going well. HPI: She presents 6 weeks s/p right knee arthroscopy, PLM, partial synovectomy, and removal of hardware.She states she started to have pain laterally when her dog ran into her leg and caused bruising along her knee. She doesn't have pain otherwise. Currently in therapy 2 days a week which is going well. She is happy with her progress. PMH: Past medical history, family history, social history, allergies and medications have been reviewed and are documented in the electronic record. ROS: Review of Systems System Neg/Pos Details Constitutional Negative Chills, fatigue, fever and night sweats. ENMT Negative Dysphagia, hearing loss, nasal congestion and vertigo. Eyes Negative Blurred vision and vision loss. Respiratory Negative Chest pain, cough, dyspnea, known TB exposure and wheezing. Cardio Negative Chest pain, cyanosis, heart murmur, irregular heartbeat/palpitations and syncope. GI Negative Abdominal pain, black tarry stools, constipation, diarrhea, heartburn, nausea and vomiting. Negative Dysuria, frequent urination, hematuria, nocturia and urinary incontinence. Endocrine Negative Weight gain and weight loss. Neuro Negative Difficulty walking, headache, paresthesia, poor coordination and seizures. Psych Negative Anxiety, depression and insomnia. Integumentary Negative Frequent skin infections, itching skin, rash and skin lesion. MS Negative Except as noted in HPI and chief complaint and muscle weakness. Esdras/Lymph Negative Bruising and easy bleeding. Allergic/Immuno Negative Contact dermatitis, environmental allergies, food allergies, infections and seasonal allergies. Vitals: 08/02/18 1042 Temp: 98.3 degrees F (36.8 degrees C) Weight: 57.7 kg (127 lb 2 oz) Height: 1.664 m (5' 5.5 ) Physical Exam: Exam Findings Details Constitutional Normal No acute distress. Well developed. Head/Face Comments normal cephallic/ Atraumatic, negative spurling's maneuver Head/Face Normal Facial features - Normal. Skull - Normal. Hair and scalp - Normal. Respiratory Normal Cough - Absent. Effort - Normal. Skin * Detailed inspection - Visual lesions: none. Skin Comments other than as noted otherwise below in extremity exam Skin Normal Palpation/texture - Normal. Nails - Normal. Hair - Normal. Psychiatric Normal Orientation - Oriented to time, place, person & situation. Involved Lower Extremity: ROM: 0-130. Quad tone good. Calf supple and non tender. Minimal effusion. Incisions healing nicely. No erythema. No drainage. Contusion noted to anterior lateral aspect of knee. Tenderness with palpation. Distally neurovascularly intact with 2+ DP pulse and full sensation in the DP/SP/Tibial nerve distribution. Assessment: ICD-10-CM 1. S/P right knee arthroscopy Z98.890 Plan: At this time, she is doing well. She will continue physical therapy to work on range of motion and strengthening. She is progressing well. We discussed the pain related to the contusion will continueto improve. She'll use NSAIDs or Tylenol as needed for pain. She will follow-up in 6 weeks for repeat evaluation. Call the office with any questions or concerns in the meantime. documented in this encounter* Teagan Butcher APRN-CNP - 09/12/2018 9:40 AM EDT Chief Complaint Patient presents with Post Op Visit 3 month s/p Right knee arthroscopy, PLM, partial synovectomy, removal of hardware. Pt states she has been in a lot of pain lately due to the fact she is constantly on her feet at work. She is still in therapy but hasn't been able to go because of work. HPI: She presents 3 months status post right knee arthroscopy, PLM, partial synovectomy, removal hardware. She states that her pain has increased lately distal to the patella due to standing at work all day. She states that she is in therapy but has been unable to attend lately due to work. She states that it is a sore pain at the end of work. She denies any sharp pains. She denies any instability. She states that her knee is feeling much better since her dog ran into the side of her knee. She denies any other issues or concerns otherwise. PMH: Past medical history, family history, social history, allergies and medications have been reviewed and are documented in the electronic record. ROS: Review of Systems System Neg/Pos Details Constitutional Negative Chills, fatigue, fever and night sweats. ENMT Negative Dysphagia, hearing loss, nasal congestion and vertigo. Eyes Negative Blurred vision and vision loss. Respiratory Negative Chest pain, cough, dyspnea, known TB exposure and wheezing. Cardio Negative Chest pain, cyanosis, heart murmur, irregular heartbeat/palpitations and syncope. GI Negative Abdominal pain, black tarry stools, constipation, diarrhea, heartburn, nausea and vomiting. Negative Dysuria, frequent urination, hematuria, nocturia and urinary incontinence. Endocrine Negative Weight gain and weight loss. Neuro Negative Difficulty walking, headache, paresthesia, poor coordination and seizures. Psych Negative Anxiety, depression and insomnia. Integumentary Negative Frequent skin infections, itching skin, rash and skin lesion. MS Negative Except as noted in HPI and chief complaint and muscle weakness. Esdras/Lymph Negative Bruising and easy bleeding. Allergic/Immuno Negative Contact dermatitis, environmental allergies, food allergies, infections and seasonal allergies. Vitals: 09/12/18 0932 Temp: 97.8 degrees F (36.6 degrees C) TempSrc: Temporal Weight: 58.7 kg (129 lb 6.4 oz) Height: 1.664 m (5' 5.5 ) Physical Exam: Exam Findings Details Constitutional Normal No acute distress. Well developed. Head/Face Comments normal cephallic/ Atraumatic, negative spurling's maneuver Head/Face Normal Facial features - Normal. Skull - Normal. Hair and scalp - Normal. Respiratory Normal Cough - Absent. Effort - Normal. Skin * Detailed inspection - Visual lesions: none. Skin Comments other than as noted otherwise below in extremity exam Skin Normal Palpation/texture - Normal. Nails - Normal. Hair - Normal. Psychiatric Normal Orientation - Oriented to time, place, person & situation. Involved Lower Extremity: ROM: 0-130. Quad tone good. Calf supple and non tender. No effusion. Incisions healing nicely. No erythema. No drainage. Distally neurovascularly intact with 2+ DP pulse and full sensation in the DP/SP/Tibial nerve distribution. Assessment: ICD-10-CM 1. S/P arthroscopy of knee Z98.890 Plan: At this time, she is doing well. We discussed that she needs to focus on physical therapy exercisesto work on strengthening. She will's understanding. We discussed that the pain she is experiencing today is related patellofemoral syndrome secondary to weak quads. She voices understanding. We discussed that she will need to be consistent with exercises to continually strengthen the quads. She'll use Tylenol as needed for pain. She will follow-up with Dr. Bender in 3 months repeat evaluation ifneeded. Call the office with any questions or concerns in the meantime. documented in this encounter* Lopez Bender MD - 02/25/2019 10:40 AM EST Patient was seen and evaluated with the CONTINUOUS ABSORPTION PROCESS OPERATOR or AT/OTC at today's visit. I performed all essential elements of the history and physical exam at today's visit. I have confirmed the diagnosis at today'svisit. I have determined the plan of care for today's visit. Please refer to the CONTINUOUS ABSORPTION PROCESS OPERATOR or AT/OTC's note for further details from today's visit. I have reviewed the note following the visit have added edits as appropriate to my evaluation and plan of care. The diagnoses for today's visit include: Assessment: ICD-10-CM 1. Hamstring tightness M62.89 Plan: At this time, her pain seems primarily related to her hamstrings. We will have her attend PT to work on hamstring stretches and exercises. She will use tylenol as needed for pain. We discussed that she should continue the quad strengthening exercises as her buckling sensation is related to quad weakness. She will follow up with us as needed. Call the office with any questions or concerns. * Teagan Butcher, TICKET SELLER-CONTINUOUS ABSORPTION PROCESS OPERATOR - 02/25/2019 10:40 AM EST Chief Complaint Patient presents with Knee Pain Right Knee. 8 month s/p Right knee arthroscopy, PLM, partial synovectomy, removal of hardware. The knee is hurting on the lateral and medial side of the knee as well as int he back of the knee. No new injury to the knee. Continues to complete exercises at home which causes pain. States the knee will give out at times as well. HPI: She presents a month status post right knee arthroscopy, PLM, lateral release, removal hardware. She states her knee is hurting laterally and medially. She states she has a lot of pain posteriorly She states her knee will occasionally buckle or give out on her. She denies any new injury. She statesshe continues her exercises at home. PMH: Past medical history, family history, social history, allergies and medications have been reviewed and are documented in the electronic record. ROS: Review of Systems System Neg/Pos Details Constitutional Negative Chills, fatigue, fever and night sweats. ENMT Negative Dysphagia, hearing loss, nasal congestion and vertigo. Eyes Negative Blurred vision and vision loss. Respiratory Negative Chest pain, cough, dyspnea, known TB exposure and wheezing. Cardio Negative Chest pain, cyanosis, heart murmur, irregular heartbeat/palpitations and syncope. GI Negative Abdominal pain, black tarry stools, constipation, diarrhea, heartburn, nausea and vomiting. Negative Dysuria, frequent urination, hematuria, nocturia and urinary incontinence. Endocrine Negative Weight gain and weight loss. Neuro Negative Difficulty walking, headache, paresthesia, poor coordination and seizures. Psych Negative Anxiety, depression and insomnia. Integumentary Negative Frequent skin infections, itching skin, rash and skin lesion. MS Negative Except as noted in HPI and chief complaint and muscle weakness. Esdras/Lymph Negative Bruising and easy bleeding. Allergic/Immuno Negative Contact dermatitis, environmental allergies, food allergies, infections and seasonal allergies. Vitals: 02/25/19 1029 Temp: 97.7 degrees F (36.5 degrees C) Weight: 60.8 kg (134 lb) Height: 1.664 m (5' 5.5 ) Physical Exam: Exam Findings Details Constitutional Normal No acute distress. Well developed. Head/Face Comments normal cephallic/ Atraumatic, negative spurling's maneuver Head/Face Normal Facial features - Normal. Skull - Normal. Hair and scalp - Normal. Respiratory Normal Cough - Absent. Effort - Normal. Skin * Detailed inspection - Visual lesions: none. Skin Comments other than as noted otherwise below in extremity exam Skin Normal Palpation/texture - Normal. Nails - Normal. Hair - Normal. Psychiatric Normal Orientation - Oriented to time, place, person & situation. Knee Exam: right ROM: 0-140. Quad tone: Fair. Calf supple and nontender. No effusion. Incisions healed well. Palpation: Hamstrings tender with palpation. Nontender otherwise. Pain with resisted flexion Terell's: Negative Posterior Drawer: Negative Varus/Valgus stress: Negative Lior's: Negative Patellar apprehension: Negative Patellar compression: Negative Distally neurovascular intact with 2+ DP pulse and full sensation in the DP/SP/Tibial nerve distributions. Uninvolved Knee Exam: ROM: 0-140. Quad tone good. Calf supple and non tender. No effusion. Terell's, posterior drawer, varus/valgus stress all negative. Non tender in the medial and lateraljoint lines. Lior's negative, no patellar apprehension, no patellar compression pain, Assessment: ICD-10-CM 1. Hamstring tightness M62.89 Plan: At this time, her pain seems primarily related to her hamstrings. We will have her attend PT to work on hamstring stretches and exercises. She will use tylenol as needed for pain. We discussed that she should continue the quad strengthening exercises as her buckling sensation is related to quad weakness. She will follow up with us as needed. Call the office with any questions or concerns. documented in this encounter* Lopez Bender MD - 04/29/2019 10:10 AM EST Chief Complaint Patient presents with Knee Pain 10 months s/p Right knee arthroscopy, PLM, partial synovectomy, removal of hardware. States the knee is buckling all the time which is causing her to fall. No new injury noted. The pain is felt in the whole knee at this time. States she gets tingling in the back and the front of the knee that will radiate to her toes. HPI: Patient presents 10 months s/p right knee arthroscopy, PLM, partial synovectomy, removal of hardware. States that knee is buckling all the time which is causing her to fall. No new injury noted. The pain is felt in the whole knee at this time. States she gets tingling in the back and front of the knee that will radiate to her toes. To recap last visit: She presents a month status post right knee arthroscopy, PLM, lateral release, removal hardware. She states her knee is hurting laterally and medially. She states she has a lot of pain posteriorly She states her knee will occasionally buckle or give out on her. She denies any new injury. She statesshe continues her exercises at home. PMH: Past medical history, family history, social history, allergies and medications have been reviewed and are documented in the electronic record. ROS: Review of Systems System Neg/Pos Details Constitutional Negative Chills, fatigue, fever and night sweats. ENMT Negative Dysphagia, hearing loss, nasal congestion and vertigo. Eyes Negative Blurred vision and vision loss. Respiratory Negative Chest pain, cough, dyspnea, known TB exposure and wheezing. Cardio Negative Chest pain, cyanosis, heart murmur, irregular heartbeat/palpitations and syncope. GI Negative Abdominal pain, black tarry stools, constipation, diarrhea, heartburn, nausea and vomiting. Negative Dysuria, frequent urination, hematuria, nocturia and urinary incontinence. Endocrine Negative Weight gain and weight loss. Neuro Negative Difficulty walking, headache, paresthesia, poor coordination and seizures. Psych Negative Anxiety, depression and insomnia. Integumentary Negative Frequent skin infections, itching skin, rash and skin lesion. MS Negative Except as noted in HPI and chief complaint and muscle weakness. Esdras/Lymph Negative Bruising and easy bleeding. Allergic/Immuno Negative Contact dermatitis, environmental allergies, food allergies, infections and seasonal allergies. Vitals: 04/29/19 0956 Temp: 97.7 degrees F (36.5 degrees C) Weight: 61.3 kg (135 lb 4 oz) Height: 1.664 m (5' 5.5 ) Physical Exam: Exam Findings Details Constitutional Normal No acute distress. Well developed. Head/Face Comments normal cephallic/ Atraumatic, negative spurling's maneuver Head/Face Normal Facial features - Normal. Skull - Normal. Hair and scalp - Normal. Respiratory Normal Cough - Absent. Effort - Normal. Skin * Detailed inspection - Visual lesions: none. Skin Comments other than as noted otherwise below in extremity exam Skin Normal Palpation/texture - Normal. Nails - Normal. Hair - Normal. Psychiatric Normal Orientation - Oriented to time, place, person & situation. Knee Exam: right ROM: 0-140. Quad tone: Fair. Calf supple and nontender. No effusion. Incisions healed well. Still notable quad weakness Palpation: Non TTP Terell's: Negative Posterior Drawer: Negative Varus/Valgus stress: Negative Lior's: Negative Patellar apprehension: Negative Patellar compression: Positive Distally neurovascular intact with 2+ DP pulse and full sensation in the DP/SP/Tibial nerve distributions. Uninvolved Knee Exam: ROM: 0-140. Quad tone good. Calf supple and non tender. No effusion. Terell's, posterior drawer, varus/valgus stress all negative. Non tender in the medial and lateraljoint lines. Lior's negative, no patellar apprehension, no patellar compression pain, Assessment: ICD-10-CM 1. Chronic pain of right knee M25.561 G89.29 Plan: At this time, she feels that her knee has no specific location of pain. She still has notable quad weakness, although she does not feel as though she has weakness. She does not want to attend therapyanymore as she feels as though she has done therapy and feels that PT was not worth while due to the location. Due to having exhausted all our medical options, we are offering her a referral to Dr Justin at [facility] for an second opinion. Mainor and her mother are understanding of this and will f/u in the future with us as needed. Call with any questions or concerns in the meantime. Donnell Menchaca AT was acting as a scribe today for this note. I have performed all essential components of the history, and physical exam. I have confirmed the diagnosis and developed a plan of care atthis visit. I have reviewed the note following the visit and have add edits as appropriate to my evaluation and plan of care. Lopez Bender MD * Elder Menchaca, ATC - 04/29/2019 10:10 AM EST Chief Complaint Patient presents with Knee Pain 10 months s/p Right knee arthroscopy, PLM, partial synovectomy, removal of hardware. States the knee is buckling all the time which is causing her to fall. No new injury noted. The pain is felt in the whole knee at this time. States she gets tingling in the back and the front of the knee that will radiate to her toes. HPI: Patient presents 10 months s/p right knee arthroscopy, PLM, partial synovectomy, removal of hardware. States that knee is buckling all the time which is causing her to fall. No new injury noted. The pain is felt in the whole knee at this time. States she gets tingling in the back and front of the knee that will radiate to her toes. To recap last visit: She presents a month status post right knee arthroscopy, PLM, lateral release, removal hardware. She states her knee is hurting laterally and medially. She states she has a lot of pain posteriorly She states her knee will occasionally buckle or give out on her. She denies any new injury. She statesshe continues her exercises at home. PMH: Past medical history, family history, social history, allergies and medications have been reviewed and are documented in the electronic record. ROS: Review of Systems System Neg/Pos Details Constitutional Negative Chills, fatigue, fever and night sweats. ENMT Negative Dysphagia, hearing loss, nasal congestion and vertigo. Eyes Negative Blurred vision and vision loss. Respiratory Negative Chest pain, cough, dyspnea, known TB exposure and wheezing. Cardio Negative Chest pain, cyanosis, heart murmur, irregular heartbeat/palpitations and syncope. GI Negative Abdominal pain, black tarry stools, constipation, diarrhea, heartburn, nausea and vomiting. Negative Dysuria, frequent urination, hematuria, nocturia and urinary incontinence. Endocrine Negative Weight gain and weight loss. Neuro Negative Difficulty walking, headache, paresthesia, poor coordination and seizures. Psych Negative Anxiety, depression and insomnia. Integumentary Negative Frequent skin infections, itching skin, rash and skin lesion. MS Negative Except as noted in HPI and chief complaint and muscle weakness. Esdras/Lymph Negative Bruising and easy bleeding. Allergic/Immuno Negative Contact dermatitis, environmental allergies, food allergies, infections and seasonal allergies. Vitals: 04/29/19 0956 Temp: 97.7 degrees F (36.5 degrees C) Weight: 61.3 kg (135 lb 4 oz) Height: 1.664 m (5' 5.5 ) Physical Exam: Exam Findings Details Constitutional Normal No acute distress. Well developed. Head/Face Comments normal cephallic/ Atraumatic, negative spurling's maneuver Head/Face Normal Facial features - Normal. Skull - Normal. Hair and scalp - Normal. Respiratory Normal Cough - Absent. Effort - Normal. Skin * Detailed inspection - Visual lesions: none. Skin Comments other than as noted otherwise below in extremity exam Skin Normal Palpation/texture - Normal. Nails - Normal. Hair - Normal. Psychiatric Normal Orientation - Oriented to time, place, person & situation. Knee Exam: right ROM: 0-140. Quad tone: Fair. Calf supple and nontender. No effusion. Incisions healed well. Still notable quad weakness Palpation: Non TTP Terell's: Negative Posterior Drawer: Negative Varus/Valgus stress: Negative Lior's: Negative Patellar apprehension: Negative Patellar compression: Positive Distally neurovascular intact with 2+ DP pulse and full sensation in the DP/SP/Tibial nerve distributions. Uninvolved Knee Exam: ROM: 0-140. Quad tone good. Calf supple and non tender. No effusion. Terell's, posterior drawer, varus/valgus stress all negative. Non tender in the medial and lateraljoint lines. Lior's negative, no patellar apprehension, no patellar compression pain, Assessment: ICD-10-CM 1. Chronic pain of right knee M25.561 G89.29 Plan: At this time, she feels that her knee has no specific location of pain. She still has notable quad weakness, although she does not feel as though she has weakness. She does not want to attend therapyanymore as she feels as though she has done therapy and feels that PT was not worth while due to the location. Due to having exhausted all our medical options, we are offering her a referral to Dr Justin at [facility] for an second opinion. Mainor and her mother are understanding of this and will f/u in the future with us as needed. Call with any questions or concerns in the meantime. documented in this encounter* Teagan Butcher, TICKET SELLER-CONTINUOUS ABSORPTION PROCESS OPERATOR - 07/15/2018 2:40 PM EDT Chief Complaint Patient presents with Post Op Visit 3.5 weeks s/p Right knee arthroscopy, PLM, partial synovectomy, removal of hardware. HPI: She presents 3.5 weeks status post right knee arthroscopy, PLM, partial synovectomy, removal hardware. She states that the swelling has greatly improved since last visit. She states her range of motion is greatly improved as well. Denies any issues or concerns. She is happy with her progress overall. PMH: Past medical history, family history, social history, allergies and medications have been reviewed and are documented in the electronic record. ROS: Review of Systems System Neg/Pos Details Constitutional Negative Chills, fatigue, fever and night sweats. ENMT Negative Dysphagia, hearing loss, nasal congestion and vertigo. Eyes Negative Blurred vision and vision loss. Respiratory Negative Chest pain, cough, dyspnea, known TB exposure and wheezing. Cardio Negative Chest pain, cyanosis, heart murmur, irregular heartbeat/palpitations and syncope. GI Negative Abdominal pain, black tarry stools, constipation, diarrhea, heartburn, nausea and vomiting. Negative Dysuria, frequent urination, hematuria, nocturia and urinary incontinence. Endocrine Negative Weight gain and weight loss. Neuro Negative Difficulty walking, headache, paresthesia, poor coordination and seizures. Psych Negative Anxiety, depression and insomnia. Integumentary Negative Frequent skin infections, itching skin, rash and skin lesion. MS Negative Except as noted in HPI and chief complaint and muscle weakness. Esdras/Lymph Negative Bruising and easy bleeding. Allergic/Immuno Negative Contact dermatitis, environmental allergies, food allergies, infections and seasonal allergies. Vitals: 07/15/18 1436 Height: 1.664 m (5' 5.5 ) Physical Exam: Exam Findings Details Constitutional Normal No acute distress. Well developed. Head/Face Comments normal cephallic/ Atraumatic, negative spurling's maneuver Head/Face Normal Facial features - Normal. Skull - Normal. Hair and scalp - Normal. Respiratory Normal Cough - Absent. Effort - Normal. Skin * Detailed inspection - Visual lesions: none. Skin Comments other than as noted otherwise below in extremity exam Skin Normal Palpation/texture - Normal. Nails - Normal. Hair - Normal. Psychiatric Normal Orientation - Oriented to time, place, person & situation. Involved Lower Extremity: ROM: 0-140. Quad tone good. Calf supple and non tender. +1 effusion. Incisions healing nicely. No erythema. No drainage. Distally neurovascularly intact with 2+ DP pulse and full sensation in the DP/SP/Tibial nerve distribution. Assessment: 1. S/P right knee arthroscopy Plan: At this time, she is doing well. She is progressing as expected. Continue physical therapy to work range of motion and strengthening. Her swelling has greatly improved since last visit thus we will not aspirate today. She will continue to use compression to help with swelling as needed. Ice as needed for swelling as well. We recommend her starting full-strength twice daily as she is flying on a plane tomorrow. Also discussed to ambulate every 30-45 minutes on the plain and perform range of motion of all the plain as well. She voices understanding.She will follow-up in 3 weeks for repeat evaluation. Call the office with any questions or concerns the meantime. documented in this encounter* Lopez Bender MD - 05/17/2018 9:40 AM EST Patient was seen and evaluated with the CONTINUOUS ABSORPTION PROCESS OPERATOR or AT/OTC at today's visit. I performed all essential elements of the history and physical exam at today's visit. I have confirmed the diagnosis at today'svisit. I have determined the plan of care for today's visit. Please refer to the CONTINUOUS ABSORPTION PROCESS OPERATOR or AT/OTC's note for further details from today's visit. I have reviewed the note following the visit have added edits as appropriate to my evaluation and plan of care. The diagnoses for today's visit include: Assessment: 1. Acute pain of right knee 2. Discoid meniscus of right knee 3. Patellofemoral pain syndrome of right knee Plan: At this time, it's difficult to say the pain is related to mal tracking of the patella, but rather quad weakness and possibly from the discoid lateral meniscus. We discussed that the discoid meniscusis likely not the entire cause of pain. We discussed a large component of helping alleviate pain would be to continue quad strengthening. We have discussed various treatment options from conservativeto surgical. They wish to proceed with surgical intervention. We will offer her a right knee arthroscopy, partial lateral meniscectomy, and other interventions as needed. We will clear her as she is a young and healthy individual. She will schedule for surgery in the near future. We discussed that this will likely not alleviate all of her pain. She will call the office with any questions or concerns, otherwise we will see her the day of surgery. Consent: Both Surgical and Non-surgical methods of treatment were discussed with the patient and they have elected to proceed with surgery. The risks and benefits were thoroughly explained including but not limited to: infection, bleeding, neurovascular damage, blood clots which may lead to pulmonary embolism, the need for further surgery stroke, and . It was also explained that the goal of surgery are to correct structural abnormalities that may be resulting in his pain but may not get rid of all the pain they are experiencing. The patient voiced full understanding and wish to proceed with surgery. They will be scheduled in the near future. Right knee arthroscopy, PLM, and other interventions as needed. * Teagan Butcher, TICKET SELLER-CONTINUOUS ABSORPTION PROCESS OPERATOR - 05/17/2018 9:40 AM EST Chief Complaint Patient presents with Knee Pain Rt Knee. The knee has been bothering her for a couple of years, had surgery on her patella tendon March 2017. States since the surgery she has been having pain in the knee which is now causing back pain. States she has pain under the knee cap and sometimes on the top of the knee cap. HPI: The patient is a pleasant 17 y.o. year old female with a complaint of right knee pain. She states the knee has been bothering her for several years. She had surgery on her patella tendon and realignment of the patella. She states the pain is worse now than it was before surgery. She states the painis aching and throughout the knee. The pain is more anterior. The pain is behind the patella and proximal to the patella. She states the pain didn't improve after surgery. She has continued therapy exercises, but she is unable to participate in sports due to the pain and the pain is affecting her daily life. No past medical history on file. Past Surgical History: Procedure Laterality Date APPENDECTOMY TONSILLECTOMY Social History Socioeconomic History Marital status: Single Spouse name: Not on file Number of children: Not on file Years of education: Not on file Highest education level: Not on file Occupational History Not on file Social Needs Financial resource strain: Not on file Food insecurity: Worry: Not on file Inability: Not on file Transportation needs: Medical: Not on file Non-medical: Not on file Tobacco Use Smoking status: Never Smoker Smokeless tobacco: Never Used Substance and Sexual Activity Alcohol use: Not on file Drug use: Not on file Sexual activity: Not on file Lifestyle Physical activity: Days per week: Not on file Minutes per session: Not on file Stress: Not on file Relationships Social connections: Talks on phone: Not on file Gets together: Not on file Attends pentecostalism service: Not on file Active member of club or organization: Not on file Attends meetings of clubs or organizations: Not on file Relationship status: Not on file Intimate partner violence: Fear of current or ex partner: Not on file Emotionally abused: Not on file Physically abused: Not on file Forced sexual activity: Not on file Other Topics Concern Not on file Social History Narrative Not on file History reviewed. No pertinent family history. No Known Allergies ROS: Review of Systems System Neg/Pos Details Constitutional Negative Chills, fatigue, fever and night sweats. ENMT Negative Dysphagia, hearing loss, nasal congestion and vertigo. Eyes Negative Blurred vision and vision loss. Respiratory Negative Chest pain, cough, dyspnea, known TB exposure and wheezing. Cardio Negative Chest pain, cyanosis, heart murmur, irregular heartbeat/palpitations and syncope. GI Negative Abdominal pain, black tarry stools, constipation, diarrhea, heartburn, nausea and vomiting. Negative Dysuria, frequent urination, hematuria, nocturia and urinary incontinence. Endocrine Negative Weight gain and weight loss. Neuro Negative Difficulty walking, headache, paresthesia, poor coordination and seizures. Psych Negative Anxiety, depression and insomnia. Integumentary Negative Frequent skin infections, itching skin, rash and skin lesion. MS Negative Except as noted in HPI and chief complaint and muscle weakness. Esdras/Lymph Negative Bruising and easy bleeding. Allergic/Immuno Negative Contact dermatitis, environmental allergies, food allergies, infections and seasonal allergies. Vitals: 05/17/18 0948 Temp: 98 degrees F (36.7 degrees C) Weight: 58.5 kg (129 lb) Height: 1.664 m (5' 5.5 ) Physical Exam: Exam Findings Details Constitutional * Level of distress - no acute distress. Nourishment - well nourished. Overall appearance - age appropriate. Head/Face Normal Facial features - Normal. Skull - Normal. Nasopharynx Comments Noraml cephalic, atraumatic Respiratory Normal Auscultation - Normal. Cough - Absent. Effort - Normal. Cardiovascular Normal Heart rate - Regular rate. Rhythm - Regular. Heart sounds - Normal S1, NormalS2. Extra sounds - None. Murmurs - None. Abdomen Normal Inspection - Normal. No abdominal tenderness. Abdomen * Auscultation - normal bowel sounds. Anterior palpation - no guarding. Skin * Inspection - General inspection: no rashes. Detailed inspection - Visual lesions: none. Rash- Description: none. Back/Spine Normal Lateral - No Kyphosis. Flexion - Normal. Extension - Normal. Back/Spine Comments negative kidney percussion Neurological Normal Level of consciousness - Normal. Orientation - Normal. Memory - Normal. Balance& gait - Normal. Hand dominance - Right-handed. Psychiatric Normal Orientation - Oriented to time, place, person & situation. Knee Exam: right ROM: 0-140. Quad tone: decreased compared to left Calf supple and nontender. +1 effusion. Palpation: mild medial and moderate lateral joint line tenderness Terell's: Negative Posterior Drawer: Negative Varus/Valgus stress: Negative Lior's: Positive pain medially Patellar apprehension: Positive Patellar compression: Negative Patella translated medially 1 quadrant, laterally 1 quadrant Distally neurovascular intact with 2+ DP pulse and full sensation in the DP/SP/Tibial nerve distributions. Uninvolved Knee Exam: ROM: 0-140. Quad tone good. Calf supple and non tender. No effusion. Terell's, posterior drawer, varus/valgus stress all negative. Non tender in the medial and lateraljoint lines. Lior's negative, no patellar apprehension, no patellar compression pain, Review of Images: See procedure note Assessment: 1. Acute pain of right knee 2. Discoid meniscus of right knee 3. Patellofemoral pain syndrome of right knee Plan: At this time, it's difficult to say the pain is related to mal tracking of the patella, but rather quad weakness and possibly from the discoid lateral meniscus. We discussed that the discoid meniscusis likely not the entire cause of pain. We discussed a large component of helping alleviate pain would be to continue quad strengthening. We have discussed various treatment options from conservativeto surgical. They wish to proceed with surgical intervention. We will offer her a right knee arthroscopy, partial lateral meniscectomy, and other interventions as needed. We will clear her as she is a young and healthy individual. She will schedule for surgery in the near future. We discussed that this will likely not alleviate all of her pain. She will call the office with any questions or concerns, otherwise we will see her the day of surgery. Consent: Both Surgical and Non-surgical methods of treatment were discussed with the patient and they have elected to proceed with surgery. The risks and benefits were thoroughly explained including but not limited to: infection, bleeding, neurovascular damage, blood clots which may lead to pulmonary embolism, the need for further surgery stroke, and . It was also explained that the goal of surgery are to correct structural abnormalities that may be resulting in his pain but may not get rid of all the pain they are experiencing. The patient voiced full understanding and wish to proceed with surgery. They will be scheduled in the near future. Right knee arthroscopy, PLM, and other interventions as needed. * Lopez Bender MD - 05/17/2018 9:40 AM EST Procedures AP/ LATERAL/ SUNRISE VIEWS were obtained of the right knee. Taken in our office and interpreted by me revealed the following: No fractures, disloactions, or subluxations. They reveal no arthritic changes of the medial compartment. They reveal no arthritic changes of the lateral compartment. They reveal no arthritic changes of the patellofemoral joint. There is not loose bodies. There is not osteochondral lesions. There are 2 screws in the tibial tubercle consistent with the previous transfer. No other acute osseous abnormalities. documented in this encounter* Teagan Butcher, TICKET SELLER-CONTINUOUS ABSORPTION PROCESS OPERATOR - 06/05/2018 8:40 AM EST Chief Complaint Patient presents with Pre-op Exam Patient presents for right knee surgery H&P. The knee is feel the same as last visit with no changes. HPI: To recap previous visit: The patient is a pleasant 17 y.o. year old female with a complaint of right knee pain. She states the knee has been bothering her for several years. She had surgery on her patella tendon and realignment of the patella. She states the pain is worse now than it was before surgery. She states the painis aching and throughout the knee. The pain is more anterior. The pain is behind the patella and proximal to the patella. She states the pain didn't improve after surgery. She has continued therapy exercises, but she is unable to participate in sports due to the pain and the pain is affecting her daily life. No past medical history on file. Past Surgical History: Procedure Laterality Date APPENDECTOMY TONSILLECTOMY Social History Socioeconomic History Marital status: Single Spouse name: Not on file Number of children: Not on file Years of education: Not on file Highest education level: Not on file Occupational History Not on file Social Needs Financial resource strain: Not on file Food insecurity: Worry: Not on file Inability: Not on file Transportation needs: Medical: Not on file Non-medical: Not on file Tobacco Use Smoking status: Never Smoker Smokeless tobacco: Never Used Substance and Sexual Activity Alcohol use: Not on file Drug use: Not on file Sexual activity: Not on file Lifestyle Physical activity: Days per week: Not on file Minutes per session: Not on file Stress: Not on file Relationships Social connections: Talks on phone: Not on file Gets together: Not on file Attends pentecostalism service: Not on file Active member of club or organization: Not on file Attends meetings of clubs or organizations: Not on file Relationship status: Not on file Intimate partner violence: Fear of current or ex partner: Not on file Emotionally abused: Not on file Physically abused: Not on file Forced sexual activity: Not on file Other Topics Concern Not on file Social History Narrative Not on file History reviewed. No pertinent family history. No Known Allergies ROS: Review of Systems System Neg/Pos Details Constitutional Negative Chills, fatigue, fever and night sweats. ENMT Negative Dysphagia, hearing loss, nasal congestion and vertigo. Eyes Negative Blurred vision and vision loss. Respiratory Negative Chest pain, cough, dyspnea, known TB exposure and wheezing. Cardio Negative Chest pain, cyanosis, heart murmur, irregular heartbeat/palpitations and syncope. GI Negative Abdominal pain, black tarry stools, constipation, diarrhea, heartburn, nausea and vomiting. Negative Dysuria, frequent urination, hematuria, nocturia and urinary incontinence. Endocrine Negative Weight gain and weight loss. Neuro Negative Difficulty walking, headache, paresthesia, poor coordination and seizures. Psych Negative Anxiety, depression and insomnia. Integumentary Negative Frequent skin infections, itching skin, rash and skin lesion. MS Negative Except as noted in HPI and chief complaint and muscle weakness. Esdras/Lymph Negative Bruising and easy bleeding. Allergic/Immuno Negative Contact dermatitis, environmental allergies, food allergies, infections and seasonal allergies. Vitals: 06/05/18 0831 BP: 107/59 Pulse: 90 Temp: 97.7 degrees F (36.5 degrees C) Weight: 59.6 kg (131 lb 6 oz) Height: 1.664 m (5' 5.5 ) Physical Exam: Exam Findings Details Constitutional * Level of distress - no acute distress. Nourishment - well nourished. Overall appearance - age appropriate. Head/Face Normal Facial features - Normal. Skull - Normal. Nasopharynx Comments Noraml cephalic, atraumatic Respiratory Normal Auscultation - Normal. Cough - Absent. Effort - Normal. Cardiovascular Normal Heart rate - Regular rate. Rhythm - Regular. Heart sounds - Normal S1, NormalS2. Extra sounds - None. Murmurs - None. Abdomen Normal Inspection - Normal. No abdominal tenderness. Abdomen * Auscultation - normal bowel sounds. Anterior palpation - no guarding. Skin * Inspection - General inspection: no rashes. Detailed inspection - Visual lesions: none. Rash- Description: none. Back/Spine Normal Lateral - No Kyphosis. Flexion - Normal. Extension - Normal. Back/Spine Comments negative kidney percussion Neurological Normal Level of consciousness - Normal. Orientation - Normal. Memory - Normal. Balance& gait - Normal. Hand dominance - Right-handed. Psychiatric Normal Orientation - Oriented to time, place, person & situation. Knee Exam: right ROM: 0-140. Quad tone: decreased compared to left Calf supple and nontender. +1 effusion. Palpation: mild medial and moderate lateral joint line tenderness Terell's: Negative Posterior Drawer: Negative Varus/Valgus stress: Negative Lior's: Positive pain medially Patellar apprehension: Positive Patellar compression: Negative Patella translated medially 1 quadrant, laterally 1 quadrant Distally neurovascular intact with 2+ DP pulse and full sensation in the DP/SP/Tibial nerve distributions. Uninvolved Knee Exam: ROM: 0-140. Quad tone good. Calf supple and non tender. No effusion. Terell's, posterior drawer, varus/valgus stress all negative. Non tender in the medial and lateraljoint lines. Lior's negative, no patellar apprehension, no patellar compression pain, Assessment: 1. Discoid meniscus of right knee 2. Patellofemoral syndrome, right Plan: At this time, it's difficult to say the pain is related to mal tracking of the patella, but rather quad weakness and possibly from the discoid lateral meniscus. We discussed that the discoid meniscusis likely not the entire cause of pain. We discussed a large component of helping alleviate pain would be to continue quad strengthening. We have discussed various treatment options from conservativeto surgical. They wish to proceed with surgical intervention. We will offer her a right knee arthroscopy, partial lateral meniscectomy, and other interventions as needed. We will clear her as she is a young and healthy individual. She will schedule for surgery in the near future. We discussed that this will likely not alleviate all of her pain. She will call the office with any questions or concerns, otherwise we will see her the day of surgery. Consent: Both Surgical and Non-surgical methods of treatment were discussed with the patient and they have elected to proceed with surgery. The risks and benefits were thoroughly explained including but not limited to: infection, bleeding, neurovascular damage, blood clots which may lead to pulmonary embolism, the need for further surgery stroke, and . It was also explained that the goal of surgery are to correct structural abnormalities that may be resulting in his pain but may not get rid of all the pain they are experiencing. The patient voiced full understanding and wish to proceed with surgery. They will be scheduled in the near future. Right knee arthroscopy, PLM, and other interventions as needed. documented in this encounter Discharge Instructions * Instructions* Pierre Miranda RN - 06/20/[address] Bender's discharge instructions in the green folder provided for your detailed postoperative instructions. Anesthesia Precautions & Expectations: After anesthesia, rest for [address], drink alcoholic beverages or make any important decisions during this time. General anesthesia may cause a sore throat, jaw discomfort or muscle aches. These symptoms can last for one or two days. documented in this encounter Summary Purpose Family History No Family History Records FoundNo Family History Records FoundNo Family History Records FoundNo Family History Records FoundNo Family History Records Found Advance Directives No Advanced Directives Records FoundLatest Code Status on File Code Status Date Activated Date Inactivated Comments Full Code 06/16/2020 6:16 AM Full Code 11/05/2019 7:32 AM 06/16/2020 6:16 AM Latest Code Status on File Code Status Date Activated Date Inactivated Comments Full Code 06/16/2020 6:16 AM Full Code 11/05/2019 7:32 AM 06/16/2020 6:16 AM Latest Code Status on File Code Status Date Activated Date Inactivated Comments Full Code 01/24/2021 6:04 AM Full Code 06/16/2020 6:16 AM 01/24/2021 6:04 AM Latest Code Status on File Code Status Date Activated Date Inactivated Comments Full Code 08/22/2021 12:26 PM Full Code 01/24/2021 6:04 AM 08/22/2021 12:26 PM Full Code 06/16/2020 6:16 AM 01/24/2021 6:04 AM Latest Code Status on File Code Status Date Activated Date Inactivated Comments Full Code 08/22/2021 12:26 PM Full Code 01/24/2021 6:04 AM 08/22/2021 12:26 PM Latest Code Status on File Code Status Date Activated Date Inactivated Comments Full Code 08/22/2021 12:26 PM Code Status History Code Status Date Activated Date Inactivated Comments Full Code 01/24/2021 6:04 AM 08/22/2021 12:26 PM Full Code 06/16/2020 6:16 AM 01/24/2021 6:04 AM Full Code 11/05/2019 7:32 AM 06/16/2020 6:16 AM Latest Code Status on File Code Status Date Activated Date Inactivated Comments Full Code 07/05/2022 6:19 AM Code Status History Code Status Date Activated Date Inactivated Comments Full Code 08/22/2021 12:26 PM 07/05/2022 6:19 AM Full Code 01/24/2021 6:04 AM 08/22/2021 12:26 PM Full Code 06/16/2020 6:16 AM 01/24/2021 6:04 AM Full Code 11/05/2019 7:32 AM 06/16/2020 6:16 AM Latest Code Status on File Code Status Date Activated Date Inactivated Comments Full Code 07/05/2022 6:19 AM Code Status History Code Status Date Activated Date Inactivated Comments Full Code 08/22/2021 12:26 PM 07/05/2022 6:19 AM Full Code 01/24/2021 6:04 AM 08/22/2021 12:26 PM Full Code 06/16/2020 6:16 AM 01/24/2021 6:04 AM Full Code 11/05/2019 7:32 AM 06/16/2020 6:16 AM Reason for Referral Status Reason Specialty Diagnoses / Procedures Referred By Contact Referred To Contact New Request Physical Therapy Diagnoses Hamstring tightness Teagan Butcher, TICKET SELLER-CONTINUOUS ABSORPTION PROCESS OPERATOR [address] [place] [address] Scheduling Instructions . Status Reason Specialty Diagnoses / Procedures Referred By Contact Referred To Contact New Request Sports Medicine Diagnoses Chronic pain of right knee Lopez Bender MD [address] [place] [address] Abhishek Ames MD [address] [place] [address] Specialty Diagnoses / Procedures Referred By Contac t Referred To Contact Sports Medicine and Rehabilitation Diagnoses Internal derangement of multiple sites of right knee Abhishek Ames MD [address] [place] [address] Referral ID Status Reason Start Date Expiration Date V isits Requested Visits Authorized [id number] New Request 11/17/2020 12/12/2021 1 1 Scheduling Instructions [facility] at [address] Room: [address] [place] [id number] [phone] FAX [facility] [address] [place] [address] FAX [facility] [address] [place], [place] [address] [phone] FAX [facility] [address] [place] [address], [address] [place] [address] FAX [facility] [place] [address] [facility], [address] [place], [place] [address] FAX [facility] [address] [facility] [address] [place] [address] [phone] FAX [facility] [place] [address] [facility], [place] [address] FAX [facility] [address] [place] [address] FAX [facility] at [address] [address] FAX Specialty Diagnoses / Procedures Referred By Keron t Referred To Contact Diagnoses Injury of right knee, initial encounter Procedures MRI KNEE RIGHT WITHOUT CONTRAST CT MRI LOWER EXTREM JT, W/O CONTRAST Abhishek Ames MD [address] [place] [address] Referral ID Status Reason Start Date Expiration Date V isits Requested Visits Authorized [id number] New Request 03/23/2022 04/17/2023 1 1 Referral ID Status Reason Start Date Expiration Date Visits Re quested Visits Authorized [id number] Closed 04/19/2022 04/17/2023 1 1 Specialty Diagnoses / Procedures Referred By Contac t Referred To Contact Diagnoses Status post surgery Procedures XR KNEE RIGHT 2 VIEWS Jim Feliciano, PAC [address] [place] [address] Referral ID Status Reason Start Date Expiration Date V isits Requested Visits Authorized [id number] New Request 07/20/2022 08/14/2023 1 1 Additional Source Comments Reason for Visit (unrecogniz ed section and content) Status Reason Specialty Diagnoses / Procedures Referre d By Contact Referred To Contact Diagnoses Discoid lateral meniscus [Q68.6] Patellofemoral syndrome, right [M22.2X1] Lopez Bender MD [address] [facility] [place] [address] Reason Comments Surgical Follow-up Reason Comments Post Op Visit 15 days s/p Right kn ee arthroscopy, PLM, partial synovectomy, removal of hardware. The knee is feeling good, no problems or concerns at this time. In therapy 2 days a week which is going well. Suture removed by nursing. Reason Comments Post Op Visit 6 weeks s/p Right kn ee arthroscopy, PLM, partial synovectomy, removal of hardware. States her dog ran intro her leg and she is having pain on the lateral side of the knee near her incision line. She states also that when she lays on her knee on the medial side the knee will go numb. In therapy 2 days a week which is going well. Reason Comments Post Op Visit 3 month s/p Right kn ee arthroscopy, PLM, partial synovectomy, removal of hardware. Pt states she has been in a lot of pain lately due to the fact she is constantly on her feet at work. She is still in therapy but hasn't been able to go because of work. Reason Comments Knee Pain Right Knee. 8 month s/p Right knee arthroscopy, PLM, partial synovectomy, removal of hardware. The knee is hurting on the lateral and medial side of the knee as well as int he back of the knee. No new injury to the knee. Continues to complete exercises at home which causes pain. States the knee will give out at times as well. Reason Comments Knee Pain 10 months s/p Right knee arthroscopy, PLM, partial synovectomy, removal of hardware. States the knee is buckling all the time which is causing her to fall. No new injury noted. The pain is felt in the whole knee at this time. States she gets tingling in the back and the front of the knee that will radiate to her toes. Reason Comments Post Op Visit 3.5 weeks s/p Right knee arthroscopy, PLM, partial synovectomy, removal of hardware. Reason Comments Knee Pain Rt Knee. The knee rod s been bothering her for a couple of years, had surgery on her patella tendon March 2017. States since the surgery she has been having pain in the knee which is now causing back pain. States she has pain under the knee cap and sometimes on the top of the knee cap. Reason Comments Pre-op Exam Patient presents for right knee surgery H&P. The knee is feel the same as last visit with no changes. Reason Comments Follow-up R knee. Pt is here f or R knee f/u to discuss surgery options. Reason Comments Labs Only Reason Onset Date Comments Post-Op Problem 08/05/2021 infection Reason Comments Condition Update ~5m s/p R knee wound revision closure, synovectomy of multiple compartments knee (DOS 03/14/21). ~7m s/p R distal femur supracondylar osteotomy with internal fixation, R knee lateral meniscus allograft transplant (DOS 01/24/21). Wound check. Reports drop BP for two days. Today 148/87 in office. States yellow drainage from R knee lateral incision. States lateral knee pain. Completing PT x1 per week, and HEP. Finished recent antibiotics. Reason Onset Date Comments Insurance 08/16/2021 Reason Comments Post Op Visit 10d s/p Right knee I and D and wound closure. (DOS: 08/22/21). Knee is getting better. Minimal pain. Some discomfort at night. No drainage from the incision. Reason Comments Follow-up Specialty Diagnoses / Procedures Referred By Keron meneses Referred To Contact Infectious Diseases Diagnoses Status post knee surgery Jim Feliciano PA-C [address] [place] [address] Referral ID Status Reason Start Date Expiration Date V isits Requested Visits Authorized [id number] New Request 09/01/2021 09/26/2022 1 1 Reason Comments Condition Update Fu R knee. h/o multi ple R knee surgeries including recent R knee osteotomy and meniscal transplant in Dec 2020 complicated by wound dehiscance and underwent I&D on 08/22/21 with MSSA wound infection. ISO Test today. States more sensative anterior R knee pain. Per PT: ROM okay, 2+ effusion. Pt reports over the summer has been jet skiing and tubing over 03 of October, had pain after and hasn't done since. Did have pain starting 2 month ago after incision was closed. Pain can be as bad as 8/10 pain. Other Pain is aching/throb doyle. Ice for pain mgt. Stretching, attempts strength training but causes pain. Reason Comments Condition Update Fu 6m 29d R knee I&D of wound 08/22/21-lateral meniscus allograft transplant (DOS 01/24/21). She's still having a lot of pain. Pain with all activity. She has tried massage therapy, PT, NMES machine with no relief. She has tried going to the gym to strength but that causes pain. She has improved with ROM. Tx ibup and Tylenol Specialty Diagnoses / Procedures Referred By Keron meneses Referred To Contact Diagnoses Injury of right knee, initial encounter Procedures MRI KNEE RIGHT WITHOUT CONTRAST CT MRI LOWER EXTREM JT, W/O CONTRAST Abhishek Ames MD [address] [place] [address] Referral ID Status Reason Start Date Expiration Date Visits Re quested Visits Authorized [id number] Closed 04/19/2022 04/17/2023 1 1 Specialty Diagnoses / Procedures Referred By Keron meneses Referred To Contact Diagnoses Unspecified internal derangement of knee Internal derangement of multiple sites of right knee Unspecified internal derangement of knee [M23.90] Internal derangement of multiple sites of right knee [M23.91] Procedures CT KNEE SCOPE,DIAGNOSTIC CT REMOVAL DEEP IMPLANT ARTHROSCOPY KNEE REMOVAL HARDWARE Abhishek Ames MD [address] [place] [address] [facility] [address] [place] [address] Referral ID Status Reason Start Date Expiration Date Visits Re quested Visits Authorized [id number] 1 1 Reason Comments Post Op Visit 2 wk s/p R knee arth roscopy/removal of hardware (DOS 07/05/2022).Patient states the knee is doing good and she is feeling great. Patient has gone to PT once due to openings. No complications. No new questions or concerns. Specialty Diagnoses / Procedures Referred By Keron t Referred To Contact Diagnoses Status post surgery Procedures XR KNEE RIGHT 2 VIEWS Jim Feliciano, JESSICA [address] [place] [address] Referral ID Status Reason Start Date Expiration Date V isits Requested Visits Authorized [id number] New Request 07/20/2022 08/14/2023 1 1 Reason Comments Abdominal Pain Pt c/o abdominal marley n and a headache since yesterday. Pt states having pain on right side of abdomen and pain in her back. INFORMATION SOURCE (unrecogn ized section and content) DATE CREATED AUTHOR AUTHOR'S ORGANIZ ATION 02/08/2019 [facility] DATE CREATED AUTHOR AUTHOR'S ORGANIZ ATION 06/16/2020 [facility] DATE CREATED AUTHOR AUTHOR'S ORGANIZ ATION 09/09/2022 [facility] DATE CREATED AUTHOR AUTHOR'S ORGANIZ ATION 05/11/2023 [facility] Teams (unrecognized sec tion and content) 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 Specialty Start Date End Date Abhishek Garcia PCP - General Pediatrics 05/17/18 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 Specialty Start Date End Date Abhishek Garcia PCP - General Pediatrics 05/17/18 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 Specialty Start Date End Date Abhishek Garcia PCP - General Pediatrics 05/17/18 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 Specialty Start Date End Date Abhishek Garcia PCP - General Pediatrics 05/17/18 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 Specialty Start Date End Date Abhishek Garcia PCP - General Pediatrics 05/17/18 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 Specialty Start Date End Date Abhishek Garcia PCP - General Pediatrics 05/17/18 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 Specialty Start Date End Date Abhishek Garcia PCP - General Pediatrics 05/17/18 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 Specialty Start Date End Date Abhishek Garcia PCP - General Pediatrics 05/17/18 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 Specialty Start Date End Date GarciaAbhishek resendiz PCP - General Pediatrics 05/17/18 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 Specialty Start Date End Date Abhishek Garcia PCP - General Pediatrics 05/17/18 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 Specialty Start Date End Date Abhishek Garcia PCP - General Pediatrics 05/17/18 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 Specialty Start Date End Date Abhishek Garcia PCP - General Pediatrics 05/17/18 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 Specialty Start Date End Date Abhishek Garcia PCP - General Pediatrics 05/17/18 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 Specialty Start Date End Date Abhishek Garcia PCP - General Pediatrics 05/17/18 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 Specialty Start Date End Date Abhishek Garcia PCP - General Pediatrics 05/17/18 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 Specialty Start Date End Date Abhishek Garcia PCP - General Pediatrics 05/17/18 Continuous Active and Recently Administ ered Medications (unrecognized section and content) PRN Medication Order 11/15/2020 11/16/2020 11/17/2020 ceFAZolin (ANCEF) 2 g in dextrose 100 mL premix IVPB 2 g, Intravenous, Administer over 30 Minutes, STRINGING MACHINE TENDER TO PROCEDURE, 1 dose, Starting on Sun11/17/20 at 0733, Until Sun11/17/20 at 1447, Other, surgical prophylaxis, Antibiotics to be infused 15-60 minutes prior to surgical incision and complete infusion prior to incision., Pre-op/Pre-Proc fentaNYL (SUBLIMAZE) injection 25 mcg 25 mcg, Intravenous, Administer over 2 Minutes, EVERY 10 MINUTES NEEDED, Starting on Sun11/17/20 at 1002, Until Sun11/17/20 at 1447, Moderate Pain, Recovery 1032 (Given - Provid er: Melissa Man RN)1042 (Given - Provider: Melissa Man RN) haloperidol lactate (HALDOL) injection 1 mg 1 mg, Intravenous, ONCE NEEDED, 1 dose, Starting on Sun11/17/20 at 1002, Until Sun11/17/20 at 1447, Refractory Nausea/vomiting, Use if patient still experiencing nausea/vomiting after 1st and 2nd line medications. Do not administer within 6 hours of intra-operative dose., Recovery hydrALAZINE (APRESOLINE) injection 2 mg 2 mg, Intravenous, EVERY 30 MINUTES NEEDED, Starting on Sun11/17/20 at 1002, Until Sun11/17/20 at 1447, SECOND line HTN, For SBP > 170 Use if HR < 60 or if patient has reactive airway disease. Administer over 2 minutes. May give a total of 20 mg while in PACU. Notify MD if BP still uncontrolled after 2 mg and no other antihypertensive agents are ordered., Recovery labetalol (NORMODYNE) injection 5 mg 5 mg, Intravenous, EVERY 15 MINUTES NEEDED, Starting on Sun11/17/20 at 1002, Until Sun11/17/20 at 1447, FIRST line HTN. , For SBP > 170 Hold if HR < 60 or patient has reactive airway disease and give SECOND line agent. May give a total of 20 mg while in PACU. If blood pressure uncontrolled after 20mg of labetalol administered, use second line agent or notify MD. For vials: labetalol should be treated as a SINGLE USE VIAL. Discard remaining contents after one use., Recovery lidocaine 1% buffered in sodium bicarbonate 1-8.4 % injection SOSY 1 mL 1 mL, Intradermal, NEEDED, Starting on Sun11/17/20 at 0733, Until Sun11/17/20 at 1447, Other, for peripheral IV insertion, For peripheral IV insertion, Pre-op/Pre-Proc lidocaine-epinephrine 1%-1:231446 injection (CANCELED) NEEDED, Starting on Sun11/17/20 at 0948, Until Sun11/17/20 at 1013, Intra-op/Intra-Proc 0948 (Given - Provid er: Abhishek Ames MD) ondansetron 4mg/2ml (ZOFRAN) injection 4 mg 4 mg, Intravenous, ONCE NEEDED, 1 dose, Starting on Sun11/17/20 at 1002, Until Sun11/17/20 at 1447, Nausea / Vomiting, FIRST line antiemetic, Do not administer within 6 hours of intra-operative dose., Recovery oxyCODONE (ROXICODONE) tablet 10 mg(Linked Group 1) 10 mg, Oral, EVERY 4 HOURS NEEDED, Starting on Sun11/17/20 at 1002, Until Sun11/17/20 at 1447, Moderate Pain, Severe Pain, Higher dose may be administered if lower dose was previously documented as ineffective and did not result in adverse effects (RR<10, negative change in RASS of 2 or more). Decrease back to lower dose if patient has adverse effects or no PRN use in previous 12 hours. Hold for sedation., Recovery 1032 (See Alternativ e - Provider: Melissa Man RN) oxyCODONE (ROXICODONE) tablet 5 mg(Linked Group 1) 5 mg, Oral, EVERY 4 HOURS NEEDED, Starting on Sun11/17/20 at 1002, Until Sun11/17/20 at 1447, Moderate Pain, Severe Pain, Use as initial dose. Higher dose may be administered if lower dose was previously documented as ineffective and did not result in adverse effects (RR<10, negative change in RASS of 2 or more)., Recovery 1032 (Given - Provid er: Melissa Man RN) Linked Groups Order Group 1: oxyCODONE (ROXICODONE) tablet 5 mgJump to med 5 mg, Oral, EVERY 4 HOURS NEEDED, Starting on Sun11/17/20 at 1002, Until Sun11/17/20 at 1447, Moderate Pain, Severe Pain
Use as initial dose. Higher dose may be administered if lower dose was previously documented as ineffective and did not result in adverse effects (RR<10, negative change in RASS of 2 or more).
Recovery Or oxyCODONE (ROXICODONE) tablet 10 mgJump to med 10 mg, Oral, EVERY 4 HOURS NEEDED, Starting on Sun11/17/20 at 1002, Until Sun11/17/20 at 1447, Moderate Pain, Severe Pain
Higher dose may be administered if lower dose was previously documented as ineffective and did not result in adverse effects (RR<10, negative change in RASS of 2 or more). Decrease back to lower dose if patient has adverse effects or no PRN use in previous 12 hours. Hold for sedation.
Recovery Scheduled Medication Order 08/20/2021 08/21/2021 08/22/2021 oxyCODONE (ROXICODONE) tablet 5 mg (COMPLETED) 5 mg, Oral, ONCE, 1 dose, On Sun08/22/21 at 1530, Recovery 1613 (Given - Provid er: Kiran Borden RN) PRN Medication Order 08/20/2021 08/21/2021 08/22/2021 ceFAZolin (ANCEF) 2 g in dextrose 100 mL premix IVPB 2 g, Intravenous, Administer over 30 Minutes, STRINGING MACHINE TENDER TO PROCEDURE, 1 dose, Starting on Sun08/22/21 at 1226, Until Sun08/22/21 at 1913, Other, Surgical Prophylaxis, Initiate antibiotic administration 30-60 minutes prior to surgical incision and complete administration prior to surgical incision., Pre-op/Pre-Proc fentaNYL (SUBLIMAZE) injection 25 mcg 25 mcg, Intravenous, Administer over 2 Minutes, EVERY 5 MINUTES NEEDED, Starting on Sun08/22/21 at 1520, Until Sun08/22/21 at 1913, Moderate Pain, Severe Pain, Additional dose may be administered only if first dose did not result in adverse effects (RR<10, decrease in level of consciousness) and was previously documented as ineffective. May give a total of 100mcg in PACU. If pain unrelieved after 100mcg, notify Anesthesia provider., Recovery 1537 (Given - Provid er: Kiran Borden RN)1607 (Given - Provider: Kiran Borden RN) haloperidol lactate (HALDOL) injection 1 mg 1 mg, Intravenous, ONCE NEEDED, 1 dose, Starting on Sun08/22/21 at 1520, Until Sun08/22/21 at 1913, FIRST line Nausea/vomiting,, If patient still experiencing nausea/vomiting after 1st dose use 2nd line antiemetic, Recovery oxyCODONE-acetaminophen (PERCOCET) 5-325 MG per tablet 1 tablet 1 tablet, Oral, EVERY 4 HOURS NEEDED, Starting on Sun08/22/21 at 1520, Until Sun08/22/21 at 1913, Moderate Pain, Severe Pain, Maximum dose of acetaminophen is 4000 mg from all sources in 24 hours., Recovery No Frequency Medication Order 08/20/2021 08/21/2021 08/22/2021 ceFAZolin (ANCEF) in dextrose 100 mL premix IVPB 1 dose, Starting on Sun08/22/21 at 1248, Until Sun08/23/21 at 1300, Created by cabinet override, Recovery 1300 (Canceled Entry - Provider: System Discharge - Comment: Automatically canceled at discontinue of medication order) oxyCODONE (ROXICODONE) tablet 1 dose, Starting on Sun08/22/21 at 1610, Until Sun08/23/21 at 1615, Created by cabinet override, Recovery 1615 (Canceled Entry - Provider: System Discharge - Comment: Automatically canceled at discontinue of medication order) Scheduled Medication Order 07/03/2022 07/04/2022 07/05/2022 oxyCODONE (ROXICODONE) tablet 5 mg (COMPLETED) 5 mg, Oral, ONCE, 1 dose, On Sun07/05/22 at 0945, Recovery 0953 (Given - Provid er: Jalyn Rollins RN) Continuous Medication Order 07/03/2022 07/04/2022 07/05/2022 Lactated ringers IV solution Intravenous, at 20 mL/hr, CONTINUOUS, Starting on Sun07/05/22 at 0700, Until Sun07/05/22 at 1244, Pre-op/Pre-Proc 0658 ($$New Bag$$ - Provider: Deedee Merino RN)0916 (Rate/Dose Change - Provider: ED Lewis)0917 ($$New Bag$$ - Provider: ED Lewis) PRN Medication Order 07/03/2022 07/04/2022 07/05/2022 ceFAZolin (ANCEF) 2 g in dextrose 100 mL premix IVPB (COMPLETED) 2 g, Intravenous, Administer over 30 Minutes, STRINGING MACHINE TENDER TO PROCEDURE, 1 dose, Starting on Sun07/05/22 at 0619, Until Discontinued, Other, Surgical Prophylaxis, Initiate antibiotic administration 30-60 minutes prior to surgical incision and complete administration prior to surgical incision., Pre-op/Pre-Proc 0801 (Given - Provid er: ED Lewis) diphenhydrAMINE (BENADRYL) injection 12.5 mg 12.5 mg, Intravenous, EVERY 6 HOURS NEEDED, 2 doses, Starting on Sun07/05/22 at 0938, Until Sun07/05/22 at 1244, Itching, FIRST line, Do not repeat dose if patient is > 65years old or if the first dose resulted in a decreased level of consciousness,, Recovery fentaNYL (SUBLIMAZE) injection 25 mcg 25 mcg, Intravenous, Administer over 2 Minutes, EVERY 5 MINUTES NEEDED, Starting on Sun07/05/22 at 0938, Until Sun07/05/22 at 1244, Mild Pain, May give up to 100 mcg while in PACU, Recovery Haloperidol lactate (HALDOL) injection 1 mg 1 mg, Intravenous, ONCE NEEDED, 1 dose, Starting on Sun07/05/22 at 0938, Until Sun07/05/22 at 1244, FIRST line Nausea/vomiting,, If patient still experiencing nausea/vomiting after 1st dose use 2nd line antiemetic, Recovery hydrALAZINE (APRESOLINE) injection 2 mg 2 mg, Intravenous, EVERY 30 MINUTES NEEDED, Starting on Sun07/05/22 at 0938, Until Sun07/05/22 at 1244, SBP > 160 SECOND line HTN, use if HR < 60., Administer over 2 minutes. Use if HR < 60. May give a total of 20 mg while in PACU. Notify MD if BP still uncontrolled after 2 mg and no other antihypertensive agents are ordered., Recovery lidocaine 1% buffered in sodium bicarbonate 1-8.4 % injection SOSY 1 mL 1 mL, Intradermal, ONCE NEEDED, 1 dose, Starting on Sun07/05/22 at 0619, Until Sun07/05/22 at 1244, Other, Use for peripheral IV insertion, Use when inserting peripheral IV, Pre-op/Pre-Proc Lidocaine-epinephrine 1%-1:171406 injection (CANCELED) NEEDED, Starting on Sun07/05/22 at 0832, Until Sun07/05/22 at 0931, Intra-op/Intra-Proc 0832 (Given - Provid er: Abhishek Ames MD) metoprolol (LOPRESSOR) injection 2 mg 2 mg, Intravenous, EVERY 15 MINUTES NEEDED, Starting on Sun07/05/22 at 0938, Until Sun07/05/22 at 1244, SBP > 160 FIRST line HTN. Hold if HR < 60 and give SECOND line agent., May give a total of 5 mg while in PACU. If blood pressure uncontrolled after 5mg of metoprolol administered, use second line agent or notify MD if BP still uncontrolled., Recovery oxyCODONE (ROXICODONE) tablet 10 mg(Linked Group 1) 10 mg, Oral, EVERY 4 HOURS NEEDED, Starting on Sun07/05/22 at 0938, Until Sun07/05/22 at 1244, Moderate Pain, Severe Pain, Higher dose may be administered if lower dose was previously documented as ineffective and did not result in adverse effects (RR<10, negative change in RASS of 2 or more). Decrease back to lower dose if patient has adverse effects or no PRN use in previous 12 hours. Hold for sedation., Recovery oxyCODONE (ROXICODONE) tablet 5 mg(Linked Group 1) 5 mg, Oral, EVERY 4 HOURS NEEDED, Starting on Sun07/05/22 at 0938, Until Sun07/05/22 at 1244, Moderate Pain, Severe Pain, Use as initial dose. Higher dose may be administered if lower dose was previously documented as ineffective and did not result in adverse effects (RR<10, negative change in RASS of 2 or more)., Recovery Povgm-Amt-vzjJMLkvh-Ketorolac (R.E.C.K.) 123-0.25-0.04- 15 MG/50ML periarticular syringe (CANCELED) NEEDED, Starting on Sun07/05/22 at 0918, Until Sun07/05/22 at 0931, Intra-op/Intra-Proc 0918 (Given - Provid er: Jim Feliciano, PAC) Linked Groups Order Group 1: oxyCODONE (ROXICODONE) tablet 5 mgJump to med 5 mg, Oral, EVERY 4 HOURS NEEDED, Starting on Sun07/05/22 at 0938, Until Sun07/05/22 at 1244, Moderate Pain, Severe Pain
Use as initial dose. Higher dose may be administered if lower dose was previously documented as ineffective and did not result in adverse effects (RR<10, negative change in RASS of 2 or more).
Recovery Or oxyCODONE (ROXICODONE) tablet 10 mgJump to med 10 mg, Oral, EVERY 4 HOURS NEEDED, Starting on Sun07/05/22 at 0938, Until Sun07/05/22 at 1244, Moderate Pain, Severe Pain
Higher dose may be administered if lower dose was previously documented as ineffective and did not result in adverse effects (RR<10, negative change in RASS of 2 or more). Decrease back to lower dose if patient has adverse effects or no PRN use in previous 12 hours. Hold for sedation.
Recovery FOR RECORDS PERTAINING TO PATIENTS WHO ARE OR HAVE BEEN ENROLLED IN A CHEMICAL DEPENDENCY/SUBSTANCEABUSE PROGRAM, SOME INFORMATION MAY BE OMITTED. This clinical summary was aggregated from multiple sources. Caution should be exercised in using it in the provision of clinical care. This summary normalizes information from multiple sources, and as a consequence, information in this document may materially change the coding, format and clinical context of patient data. In addition, data may be omitted in some cases. CLINICAL DECISIONS SHOULD BE BASED ON THE PRIMARY CLINICAL RECORDS. [employer]. provides no warranty or guarantee of the accuracy or completeness of information in this document.
== END | disposition home or self-care (01) ==
PROVIDERS: Referring Provider Obstetrics & Gynecology; Visit Provider Obstetrics & Gynecology
DX: N80.9 Endometriosis, unspecified (principal); R10.2 Pelvic and perineal pain
CPT/HCPCS: 76830; 76856

== ENCOUNTER → 2023-05-31 | Outpatient (CLI) | payer OTHER, SELFPAY ==
--- OUTSIDE RECORDS SUMMARY | 2023-05-31 22:58 | XMS RPT_ITS | CCD ---
Author Name Unknown Address [address] [place] [address] Organization [facility] Care Team Providers Care Brake Repairer Name Role Phone ABHISHEK AVILA Referring Unavailable ABHISHEK AVILA Admitting Unavailable Results Test Name Value Interpretation Reference Range Facil ity Encounters Encounter Date Encounter Type Care Provider Facility Start: 01-20-2021 End: 01-20-2021 ambulatory ABHISHEK AVILA [facility] Summary Purpose Family History No Family History Records Found Advance Directives No Advanced Directives Records Found Additional Source Comments INFORMATION SOURCE (unrecogn ized section and content) FOR RECORDS PERTAINING TO PATIENTS WHO ARE [...] BE BASED ON THE PRIMARY CLINICAL RECORDS. [facility]. provides no warranty or guarantee of the accuracy or completeness of information in this document.
[2023-06-05 05:07] LABS: Chlamydia By Nucleic Acid AMP Negative (Negative); Gonococcus By Nucleic Acid AMP Negative (Negative)
== END | disposition home or self-care (01) ==
PROVIDERS: Referring Provider Advanced Practice Midwife; Visit Provider Advanced Practice Midwife
DX: N89.8 Other specified noninflammatory disorders of vagina (principal); R10.2 Pelvic and perineal pain; Z11.3 Encounter for screening for infections with a predominantly sexual mode of transmission
CPT/HCPCS: 87070; 87205; 87491; 87591

== ENCOUNTER → 2023-07-16 | Outpatient (CLI) | payer SELFPAY ==
[2023-07-16 13:44] LABS: Absolute Lymphocyte Count 1.97 X10^3/uL (0.83-4.51); Absolute Neutrophil Count 4.2 X10^3/uL (2.0-7.7); Basophil# 0.02 X10^3/uL; Basophil% 0.3 % (0-1); Eosinophil# 0.09 X10^3/uL; Eosinophils% 1.4 % (0-5); Hematocrit 43.9 % (37-47); Hemoglobin 14.8 g/dL (12.0-15.0); Lymphocyte # 1.97 X10^3/ul (0.83-4.51); Lymphocyte % 29.6 % (19-41); Mean Corp Hgb Conc 33.7 g/dL (32-36); Mean Corpuscular Hgb 27.3 pg (27.0-32.0); Mean Corpuscular Volume 80.8 fL (81-99); Mean Platelet Vol. 9.1 fl (6.2-12.0); Monocyte# 0.39 X10^3/uL; Monocyte% 5.9 % (0-10); NRBC Flagged by Analyzer 0 % (0-5); Neutrophil # 4.15 X10^3/uL (2.7-7.7); Neutrophil % 62.2 % (47-70); Platelet Count 275 K/mm3 (150-450); RBC Distribution Width CV 12.4 % (11.6-14.6); RBC Distribution Width SD 35.7 fl (35.1-43.9); Red Blood Count 5.43 M/mm3 (4.2-5.4); White Blood Count 6.7 K/mm3 (4.4-11.0)
[2023-07-16 14:34] LABS: HIV - WCH Non-Reactive (Nonreactive)
[2023-07-19 14:11] LABS: Chlamydia By Nucleic Acid AMP Negative (Negative); Gonococcus By Nucleic Acid AMP Negative (Negative); HCV Quant. RNA PCR HCV Not Detected IU/mL (.); HSV 1 IgG < 0.91 index (0.00-0.90); HSV 2 IgG < 0.91 index (0.00-0.90)
== END | disposition home or self-care (01) ==
PROVIDERS: Referring Provider Obstetrics & Gynecology; Visit Provider Obstetrics & Gynecology
DX: Z20.2 Contact with and (suspected) exposure to infections with a predominantly sexual mode of transmission (principal)
CPT/HCPCS: 36415; 85025; 86695; 86696; 86703; 87491; 87522; 87591

== ENCOUNTER → 2023-10-24 | Outpatient (CLI) | payer SELFPAY ==
[2023-10-29 00:07] LABS: Chlamydia By Nucleic Acid AMP Negative (Negative); Gonococcus By Nucleic Acid AMP Negative (Negative)
== END | disposition home or self-care (01) ==
LOC: LABSPEC 15:33
PROVIDERS: Referring Provider Nurse Practitioner Women's Health; Visit Provider Nurse Practitioner Women's Health
DX: Z11.3 Encounter for screening for infections with a predominantly sexual mode of transmission (principal); N89.8 Other specified noninflammatory disorders of vagina
CPT/HCPCS: 87070; 87205; 87491; 87591

== ENCOUNTER → 2023-12-24 | Outpatient (CLI) | payer SELFPAY ==
[2023-12-27 06:11] LABS: Chlamydia By Nucleic Acid AMP Positive (Negative); Gonococcus By Nucleic Acid AMP Negative (Negative)
== END | disposition home or self-care (01) ==
LOC: LABSPEC 16:14
PROVIDERS: Referring Provider Nurse Practitioner Women's Health; Visit Provider Nurse Practitioner Women's Health
DX: Z11.3 Encounter for screening for infections with a predominantly sexual mode of transmission (principal)
CPT/HCPCS: 87491; 87591

== ENCOUNTER → 2024-01-16 | Outpatient (CLI) | payer SELFPAY ==
[2024-01-22 17:07] LABS: Chlamydia By Nucleic Acid AMP Negative (Negative); Gonococcus By Nucleic Acid AMP Negative (Negative)
== END | disposition home or self-care (01) ==
PROVIDERS: Referring Provider Nurse Practitioner Women's Health; Visit Provider Nurse Practitioner Women's Health
DX: Z11.3 Encounter for screening for infections with a predominantly sexual mode of transmission (principal)
CPT/HCPCS: 87491; 87591

== ENCOUNTER → 2024-05-02 | Outpatient (CLI) | payer SELFPAY ==
[2024-05-05 20:07] LABS: Chlamydia By Nucleic Acid AMP Negative (Negative); Gonococcus By Nucleic Acid AMP Negative (Negative)
== END | disposition home or self-care (01) ==
LOC: LABSPEC 14:57
PROVIDERS: Referring Provider Obstetrics & Gynecology; Visit Provider Obstetrics & Gynecology
DX: N89.8 Other specified noninflammatory disorders of vagina (principal)
CPT/HCPCS: 87070; 87205; 87491; 87591

== ENCOUNTER → 2024-08-11 | Outpatient (CLI) | payer SELFPAY ==
--- NOTE | 2024-08-11 09:31 | US_ITS ---
PROCEDURE: TRANSVAGINAL NON- 08/11/2024 REASON FOR EXAM: HEAVY PERIODS, AUB TECHNIQUE: Transvaginal pelvic ultrasound COMPARISON: May 11, 2023. FINDINGS: LMP: July 26, 2024 Measurements: Uterus: 8.7 cm x 5.1 cm x 3.6 cm with a volume of 83.82 mL Endometrial Thickness: 4.5 mm Right Ovary: 3.6 cm x 2.5 cm x 2.2 cm with a volume of 10.19 mL. Left Ovary: 2.4 cm x 2.5 cm x 6.7 cm with a volume of 11.37 mL. Uterus: Unremarkable Endometrium: Unremarkable. Right ovary: Normal size and echotexture. Left ovary: Normal size and echotexture. Other: No large pelvic mass identified. Reading Location: [id number]
[2024-08-14 06:07] LABS: Chlamydia By Nucleic Acid AMP Negative (Negative); Gonococcus By Nucleic Acid AMP Negative (Negative)
== END | disposition home or self-care (01) ==
PROVIDERS: Nurse Practitioner Women's Health; Referring Provider Obstetrics & Gynecology; Visit Provider Obstetrics & Gynecology
DX: N93.9 Abnormal uterine and vaginal bleeding, unspecified (principal); R10.2 Pelvic and perineal pain; N80.9 Endometriosis, unspecified; Z11.3 Encounter for screening for infections with a predominantly sexual mode of transmission
CPT/HCPCS: 76830; 87491; 87591

== ENCOUNTER → 2024-08-18 | Outpatient (CLI) | payer SELFPAY ==
[2024-08-18 16:58] LABS: Absolute Lymphocyte Count 2.19 X10^3/uL (0.83-4.51); Absolute Neutrophil Count 4.5 X10^3/uL (2.0-7.7); Basophil# 0.04 X10^3/uL; Basophil% 0.6 % (0-1); Eosinophil# 0.12 X10^3/uL; Eosinophils% 1.7 % (0-5); Hematocrit 44.2 % (37-47); Hemoglobin 14.9 g/dL (12.0-15.0); Lymphocyte # 2.19 X10^3/ul (0.83-4.51); Lymphocyte % 30.1 % (19-41); Mean Corp Hgb Conc 33.7 g/dL (32-36); Mean Corpuscular Hgb 27.6 pg (27.0-32.0); Monocyte# 0.41 X10^3/uL; Monocyte% 5.6 % (0-10); NRBC Flagged by Analyzer 0 % (0-5); Neutrophil # 4.48 X10^3/uL (2.7-7.7); Neutrophil % 61.6 % (47-70); Platelet Count 295 K/mm3 (150-450); RBC Distribution Width CV 12.6 % (11.6-14.6); RBC Distribution Width SD 37.3 fl (35.1-43.9); Red Blood Count 5.39 M/mm3 (4.2-5.4); White Blood Count 7.3 K/mm3 (4.4-11.0)
[2024-08-18 17:32] LABS: Thyroid Stim Hormone (TSH) 0.708 uIU/mL (0.300-4.200)
== END | disposition home or self-care (01) ==
PROVIDERS: Referring Provider Obstetrics & Gynecology; Visit Provider Obstetrics & Gynecology
DX: N93.9 Abnormal uterine and vaginal bleeding, unspecified (principal)
CPT/HCPCS: 36415; 84443; 85025

== ENCOUNTER → 2024-09-09 | Outpatient (CLI) | payer SELFPAY | END | disposition home or self-care (01) | PROVIDERS: Referring Provider Nurse Practitioner Women's Health; Visit Provider Nurse Practitioner Women's Health | DX: N89.8 Other specified noninflammatory disorders of vagina (principal) | CPT/HCPCS: 87070; 87205 ==

== ENCOUNTER → 2024-09-23 | Outpatient (CLI) | payer SELFPAY ==
[2024-09-23 11:19] LABS: HIV Nonreactive (Nonreactive); Syphilis Antibodies Nonreactive (Nonreactive)
[2024-09-24 20:08] LABS: HCV Quant. RNA PCR HCV Not Detected IU/mL (.); HSV 1 IgG Non Reactive (Non Reactive); HSV 2 IgG Non Reactive (Non Reactive)
[2024-09-25 21:07] LABS: Chlamydia By Nucleic Acid AMP Negative (Negative); Gonococcus By Nucleic Acid AMP Negative (Negative)
[2024-09-27 21:47] LABS: HPV Reflexed? NOT INDICATED
== END | disposition home or self-care (01) ==
PROVIDERS: Referring Provider Nurse Practitioner Women's Health; Visit Provider Nurse Practitioner Women's Health
DX: N89.8 Other specified noninflammatory disorders of vagina (principal); Z12.4 Encounter for screening for malignant neoplasm of cervix; Z20.2 Contact with and (suspected) exposure to infections with a predominantly sexual mode of transmission
CPT/HCPCS: 36415; 86695; 86696; 86703; 86780; 87070; 87205; 87491; 87522; 87591; 88175; G0145

== ENCOUNTER → 2025-02-11 | Outpatient (CLI) | payer SELFPAY ==
[2025-02-11 12:04] LABS: Hematocrit 46.5 % (37-47); Hemoglobin 15.6 g/dL (12.0-15.0); Immature Granulocytes Count 0.030 X10^3/uL (0.0-0.0); Mean Corp Hgb Conc 33.5 g/dL (32-36); Mean Corpuscular Volume 82.4 fL (81-99); Mean Platelet Vol. 10.0 fl (6.2-12.0); NRBC Flagged by Analyzer 0 % (0-5); Platelet Count 296 K/mm3 (150-450); RBC Distribution Width CV 12.6 % (11.6-14.6); RBC Distribution Width SD 37.9 fl (35.1-43.9); Red Blood Count 5.64 M/mm3 (4.2-5.4); White Blood Count 8.8 K/mm3 (4.4-11.0)
[2025-02-11 12:58] LABS: Follicle Stimulating Hormone 6.4 mIU/mL
[2025-02-13 16:09] LABS: PROLACTIN 15.7 ng/mL (4.8-33.4)
== END | disposition home or self-care (01) ==
PROVIDERS: Visit Provider Obstetrics & Gynecology
DX: N91.2 Amenorrhea, unspecified (principal)
CPT/HCPCS: 36415; 82627; 82670; 83001; 83498; 84146; 84402; 84443; 85025; 82626

== ENCOUNTER → 2025-03-05 | Outpatient (CLI) | payer SELFPAY ==
--- NOTE | 2025-03-05 13:33 | US_ITS ---
PROCEDURE: BREAST LIMITED UNILATERAL 03/05/2025 REASON FOR EXAM: F, Age 24 y/o , LEFT BREAST LUMP Left breast discharge. COMPARISON: Prior study dated July 01, 2021.. TECHNIQUE: Procedure Code: USBRSTLIMIT Modality: US Procedure: BREAST LIMITED UNILATERAL. The upper aspect of the left breast was examined with ultrasound. FINDINGS: No sonographic abnormality is seen. US/Breast Limited Unilateral IMPRESSION: No sonographic abnormality is seen. BI-RADS 1: NEGATIVE RECOMMENDATION: Routine annual follow-up in 1 Year Reading Location: [place] [address]
== END | disposition home or self-care (01) ==
PROVIDERS: Referring Provider Obstetrics & Gynecology; Visit Provider Obstetrics & Gynecology
DX: N63.20 Unspecified lump in the left breast, unspecified quadrant (principal)
CPT/HCPCS: 76642